=== PATIENT | male | born 1940 | race Caucasian/White ===

== ENCOUNTER → 2019-09-02 12:15 | Outpatient (CLI) | payer OTHER, SELFPAY ==
--- NOTE | 2019-09-02 | DI.RAD.S_ITS ---
PROCEDURE: XR ANKLE RT MIN 3V INDICATIONS: right ankle pain TECHNIQUE: 3 views of the ankle were acquired. COMPARISON: None. FINDINGS: Bones: No fractures or dislocations. Ankle mortise is normally aligned. No suspicious bony lesions. Small plantar and posterior calcaneal spurs. Tibiotalar degenerative spurring. Soft tissues: No tibiotalar joint effusion. Achilles tendon appears normal. IMPRESSION: Chronic degenerative changes as above Dictated by: Fran Chapman M.D. on 09/02/2019 at 14:45 Approved by: Fran Chapman M.D. on 09/02/2019 at 14:47
== END ==
PROVIDERS: Visit Provider Student in an Organized Health Care Education/Training Program
DX: M25.571 Pain in right ankle and joints of right foot (principal)
CPT/HCPCS: 73610

== ENCOUNTER → 2019-10-13 11:21 | Outpatient (CLI) | payer OTHER, SELFPAY ==
--- NOTE | 2019-10-13 | DI.RAD.S_ITS ---
PROCEDURE: XR LUMBAR SPINE 2-3V INDICATIONS: Segmental and somatic dysfunction of lumbar region TECHNIQUE: 2 views of the lumbar spine were acquired. COMPARISON: None. FINDINGS: Bones: No fracture or focal osseous destruction. Multilevel degenerative endplate sclerosis and spurring. Diffuse facet arthropathy. Straightening of the normal lordotic curvature. Severe narrowing of L3-L4, L4-L5 disc spaces. Moderate L5-S1 disc space narrowing. Mild levocurvature centered at L4. Sacroiliac joints appear grossly intact. Mild bilateral hip joint degeneration. Soft tissues: Scattered vascular calcifications seen in the aorta. IMPRESSION: Severe lumbar spondylosis most pronounced at L3-L4, L4-L5. Diffuse facet arthropathy Straightening of the normal lordotic curvature. Mild levocurvature centered at L4. Dictated by: Fran Chapman M.D. on 10/13/2019 at 12:41 Approved by: Fran Chapman M.D. on 10/13/2019 at 12:43
== END ==
PROVIDERS: Referring Provider Chiropractor; Visit Provider Chiropractor
DX: M54.5 Low back pain (principal); M99.03 Segmental and somatic dysfunction of lumbar region; M47.816 Spondylosis without myelopathy or radiculopathy, lumbar region; M16.0 Bilateral primary osteoarthritis of hip
CPT/HCPCS: 72100

== ENCOUNTER → 2020-02-20 15:46 | Outpatient (CLI) | payer OTHER, SELFPAY ==
[2020-02-21 09:53] LABS: COVID19 Sendout Not Detected (Not Detect)
== END ==
PROVIDERS: Visit Provider Student in an Organized Health Care Education/Training Program
DX: Z01.812 Encounter for preprocedural laboratory examination (principal)
CPT/HCPCS: 87635

== ENCOUNTER 2020-02-23 13:18 | Day surgery (SDC) | payer OTHER, SELFPAY ==
[2020-02-23] VITALS (10 sets, daily range): BP systolic 92–175; BP diastolic 59–83; PULSE 57–73; RESP 13–18; TEMP 36.1–36.7; O2SAT 89–98; BMI 34.0
--- NOTE | 2020-02-23 | PATH_ITS ---
[facility] Accession Number: [id number] . 01 Material submitted: . PART A: colon - TRANSVERSE COLON POLYP BIOPSY PART B: colon - CECAL POLYP PART C: colon - COLON POLYP AT 50CM . 02 Diagnosis: A. Transverse Colon Polyp, Biopsy: Portions of tubular adenoma x2. . B. Cecal Polyp: Portions of tubular adenoma x3. . C. Colon Polyp at 50 cm, Biopsy: Tubular adenoma. MRV 02/24/2020 1047 Local . 02 Electronically signed: . Adriana Cee MD, Pathologist NPI- [id number] . 01 Gross description: . Part A: TRANSVERSE COLON POLYP BIOPSY: Received in formalin are 2 fragment(s) of norris, soft tissue measuring 0.2 x 0.2 x 0.2 cm to 0.4 x 0.4 x 0.3 cm submitted entirely in 1 cassette(s) Part B: CECAL POLYP: Received in formalin are 3 fragment(s) of norris, soft tissue measuring 0.1 x 0.1 x 0.1 cm to 0.2 x 0.2 x 0.2 cm submitted entirely in 1 cassette(s) Part C: COLON POLYP AT 50CM: Received in formalin is 1 fragment(s) of norris, soft tissue measuring 0.3 x 0.3 x 0.3 cm submitted entirely in 1 cassette(s) /LAUREN 02/24/2020 0030 Local . 02 Pathologist provided ICD-10: K63.5 . 02 CPT . 290487, 259750, [id number] Performed at: [address] [facility], [place], [place] [id number] MD Freddie Vela MD Phone: [phone] Performed at: 02 [facility] [address] [place] [id number] MD Marilia Gonzalez MD Phone: [phone]
[2020-02-23] MEDS: LACTATED RINGERS 1,000 ML 200 ML IV (14:35)
--- NOTE | 2020-02-23 15:18 | PM.HP.1 ---
History of Present Illness History of Present Illness Date Patient Seen: 02/23/20 Time Patient Seen: 15:18 Chief complaint: COLONOSCOPY Narrative: The patient presents for colorectal sreening. They had a previous colonoscopy 10 years ago that was normal No personal or family history of colon cancer. On further history denies any recent gastrointestinal symptoms. No nausea, vomiting, abdominal pain, loss of appetite, unexplained weight loss, change in bowel habits, diarrhea, constipation, melena, hematochezia, or bright red blood per rectum. Patient History Medical History Arthritis (Acute) Cancer (Acute) Cough (Acute) Diabetes (Acute) Enlarged prostate (Acute) Hand pain (Acute) History of falling (Acute) History of melanoma (Acute) Hypertension (Acute) Impairment of balance (Acute) Urinary frequency (Acute) Surgical History History of appendectomy (Acute) History of tonsillectomy (Acute) Family & Social History Social History: household members family Tobacco & Substance use: Tobacco type cigarettes,pipe Smoking Status Former smoker alcohol intake current alcohol intake frequency 0-2 drinks per day Substance Use Type does not use Meds Home Medications and Allergies Home Medications Medication Instructions Recorded Confirmed Type acetaminophen [Tylenol Extra 1,000 mg PO BID 02/23/20 02/23/20 History Strength] calcium carbonate [Calcium 600] 600 mg PO DAILY 02/23/20 02/23/20 History cholecalciferol (vitamin D3) 50 mcg PO DAILY 02/23/20 02/23/20 History [Vitamin D3] coQ10 (ubiquinol) 100 mg PO DAILY 02/23/20 02/23/20 History diphenhydramine HCl 50 mg PO BEDTIME 02/23/20 02/23/20 History finasteride 5 mg PO QPM 02/23/20 02/23/20 History fluticasone propionate [Flovent 2 puff INHALATION BID 02/23/20 02/23/20 History HFA] lisinopril 20 mg PO QPM 02/23/20 02/23/20 History metformin 500 mg PO BID 02/23/20 02/23/20 History multivitamin 1 tab PO DAILY 02/23/20 02/23/20 History naproxen sodium [Aleve] 220 mg PO DAILY 02/23/20 02/23/20 History saw palmetto 330 mg PO DAILY 02/23/20 02/23/20 History simvastatin 40 mg PO BEDTIME 02/23/20 02/23/20 History sulfamethoxazole-trimethoprim 1 tab PO DAILY 02/23/20 02/23/20 History terazosin 10 mg PO DAILY 02/23/20 02/23/20 History vitamin B complex 1 tab PO DAILY 02/23/20 02/23/20 History Allergies Allergy/AdvReac Type Severity Reaction Status Date / Time No Known Drug Allergies Allergy Verified 02/23/20 14:24 Review of Systems Review of Systems Narrative: A 10 point review of systems is negative except as noted in the HPI Exam Vital Signs (past 8 hours): - 02/23/20 14:28 Temperature 97.0 F L Pulse Rate 72 Respiratory Rate 16 Blood Pressure 175/83 H Pulse Oximetry 95 Oxygen Delivery Method Room Air Narrative Exam Narrative: General-no acute distress, well nourished HEENT-moist mucous membranes, no scleral icterus Neck-supple, no lymphadenopathy Chest- non labored respirations, clear to auscultation bilaterally Cardiac-regular rate no peripheral edema Abdomen-soft, nontender, non distended Extremities-warm, well perfused Neurological-alert and oriented, no focal deficits Assessment & Plan Assessment & Plan narrative: The patient requires colorectal screening and colonoscopy is recommended. Technical details were discussed. Risks, benefits, alternatives explained. Risks including but not limited to myocardial infarction, aspiration, bleeding, pain, missed lesion, incomplete examination, need for further radiographic studies, colonic perforation, and need for major abdominal surgery were discussed. All questions were answered to their satisfaction, and they are in agreement with this plan. COVID-19 COVID-19 status: Negative
[2020-02-23] MEDS: MIDAZOLAM 5 MG/5 ML VIAL IV (15:23)
[2020-02-23] MEDS: fentaNYL 250 MCG/5 ML INJ IV (15:24)
--- NOTE | 2020-02-23 15:48 | PM.OP.ENDO ---
Operative Date/Time/Diagnoses Date of procedure: 02/23/20 Time of procedure: 15:48 Post-op diagnosis: same Procedure & Clinicians Study performed: Colonoscopy Same procedure as scheduled: Yes Indications: 80-year-old male last colonoscopy 10 years ago presents for routine screening. Surgeon: Bradley Kelly Procedure Notes SCOAP/Timeout: Performed Procedure in detail: Patient placed in left lateral decubitus position. Time out was performed. Procedural sedation was administered with Versed and Fentanyl. A rectal exam demonstrated no external hemorrhoids no internal masses. Colonoscopy scope was placed into the rectum and advanced through the colon to the cecum. The ileocecal valve was identified. The scope was then slowly withdrawn examining colon thoroughly in all directions. The colonoscopy was notable for the following 1. Aguilar diverticulosis 2. Three adenomatous appearing polyps were removed. 1. Cecum less than 1 cm removed with cold snare. 2. Transverse colon less than 1 cm removed with biopsy forceps. 3. 50 cm from anal verge less than 1 cm removed with biopsy forceps. 3. Grade 1 internal hemorrhoids 4. Quality of prep fair Scope withdrawal time: 6 Sedation minutes: 25 Findings: diverticulosis and polyp Specimen(s): other (Three polyps cecum, transverse colon, 50 cm from anal verge) Complications: none Impression: Adenomatous polyps Post-procedure Recommendations: Colonscopy in 3 years Disposition: same day surgery
--- NOTE | 2020-02-23 16:13 | SUR.PHASEI ---
1611 assumed care from ARGENIS Damian
--- NOTE | 2020-02-23 16:28 | SUR.PHASEI ---
report off to ARGENIS Damian
== END 2020-02-23 17:00 | disposition home or self-care (01) ==
PROVIDERS: PCP Student in an Organized Health Care Education/Training Program; Referring Provider Surgery; Visit Provider Surgery
PROC: 0DJD8ZZ Inspection of Lower Intestinal Tract, Via Natural or Artificial Opening Endoscopic (ICD-10-PCS; CPT 45378; principal; 2020-02-23 14:30)
DX: Z12.11 Encounter for screening for malignant neoplasm of colon (principal); K57.30 Diverticulosis of large intestine without perforation or abscess without bleeding; D12.3 Benign neoplasm of transverse colon; D12.0 Benign neoplasm of cecum; D12.6 Benign neoplasm of colon, unspecified
CPT/HCPCS: 45385; 45380; 99152; 99153; J2250; J3010

== ENCOUNTER → 2020-05-18 08:54 | Outpatient (CLI) | payer OTHER, SELFPAY ==
--- NOTE | 2020-05-18 | DI.MRI.S_ITS ---
PROCEDURE: MR LUMBAR SPINE WO CON INDICATIONS: Lumbago with sciatica, unspecified side TECHNIQUE: Noncontrast sagittal T1 spin echo and T2 fast echo, sagittal STIR, axial T1 and T2 fast spin echo through the lumbar spine. In cases with scoliosis, additional coronal T2 fast spin echo may be performed. COMPARISON: [facility], CR, XR LUMBAR SPINE 2-3V, 10/13/2019, 11:23. FINDINGS: Image quality: Excellent. Alignment and Curvature: There is trace retrolisthesis of L2 on L3, L3 on L4, L4 on L5, grade 1 retrolisthesis of L5 on S1. Prominent anterior bridging osteophytes are present at L2-3, L3-4. Bone Marrow: Marrow is of normal overall signal. Moderate reactive endplate changes are present at L3-4, L4-5. No acute vertebral body compression fractures. Spinal Cord: Conus medullaris terminates at the L1-L2 level. Visualized cord demonstrates normal signal and size. Paraspinous Soft Tissues: No paravertebral masses. Discs: Moderate to severe desiccation is present throughout the lumbar spine most severe from L3-4 through L5-S1. L1-L2: No disc bulge, spinal stenosis or foraminal narrowing. L2-L3: Mild disc bulge with minimal canal narrowing. Minimal left foraminal narrowing. L3-L4: Mild disc bulge with moderate spinal stenosis. Moderate to severe bilateral foraminal narrowing with facet and ligamentum flavum hypertrophy. Epidural lipomatosis is present. L4-L5: Mild disc bulge with moderate spinal stenosis. Severe right and minimal to mild left foraminal narrowing with facet and ligamentum flavum hypertrophy. L5-S1: Mild disc bulge with mild spinal stenosis. Severe left and moderate right foraminal narrowing with slight nerve root flattening on the left. Facet and ligamentum flavum hypertrophy are present. IMPRESSION: 1. Multilevel spinal stenosis secondary to disc bulge with contributing effect of facet/ligamentum flavum arthropathy as well as epidural lipomatosis. 2. Multilevel foraminal narrowing severe at L4-5 and L5-S1 secondary facet/ligamentum arthropathy as well as retrolisthesis. Dictated by: Corie Ferguson M.D. on 05/18/2020 at 13:48 Approved by: Corie Ferguson M.D. on 05/18/2020 at 13:57
== END ==
PROVIDERS: PCP Student in an Organized Health Care Education/Training Program; Referring Provider Student in an Organized Health Care Education/Training Program; Visit Provider Student in an Organized Health Care Education/Training Program
DX: M51.16 Intervertebral disc disorders with radiculopathy, lumbar region (principal); M51.17 Intervertebral disc disorders with radiculopathy, lumbosacral region; M47.26 Other spondylosis with radiculopathy, lumbar region; M47.27 Other spondylosis with radiculopathy, lumbosacral region; M48.061 Spinal stenosis, lumbar region without neurogenic claudication; M48.07 Spinal stenosis, lumbosacral region
CPT/HCPCS: 72148

== ENCOUNTER → 2021-02-21 15:37 | Outpatient (CLI) | payer OTHER, SELFPAY ==
--- NOTE | 2021-02-21 15:43 | DI.RAD.S_ITS ---
PROCEDURE: XR CHEST 2V INDICATIONS: COUGH TECHNIQUE: 2 views of the chest were acquired. COMPARISON: None. FINDINGS: Surgical changes and devices: None. Lungs and pleura: There is elevation of the right hemidiaphragm. Lungs are clear. No pleural effusions or pneumothorax. Mediastinum: Mediastinal contours are normal. Heart size is normal. Bones and chest wall: No suspicious bony abnormalities. Soft tissues appear unremarkable. IMPRESSION: 1. No acute cardiopulmonary disease. 2. Elevation of right hemidiaphragm uncertain chronicity. Dictated by: Susi Lanier M.D. on 02/21/2021 at 17:12 Approved by: Susi Lanier M.D. on 02/21/2021 at 17:12
== END ==
PROVIDERS: PCP Student in an Organized Health Care Education/Training Program; Referring Provider Student in an Organized Health Care Education/Training Program; Visit Provider Student in an Organized Health Care Education/Training Program
DX: R05 Cough (principal); R06.2 Wheezing; R35.1 Nocturia
CPT/HCPCS: 71046

== ENCOUNTER 2021-06-25 07:53 | Day surgery (SDC) | payer OTHER, SELFPAY ==
[2021-06-25] MEDS: HYALURONATE SODIUM 30 MG-10 MG/ML SYRINGES 1 BOX INTRAOCULA (07:57)
[2021-06-25] MEDS: PHENYLEPHRINE/LIDOCAINE VIAL (OR) 0.2 ML EYE-OP (07:57)
[2021-06-25] MEDS: MOXIFLOXACIN INJ 4 MG/0.8 ML VIAL 0.5 MG EYE-OP (07:57)
[2021-06-25] MEDS: TRIAMCINOLONE 50 MG/5 ML VIAL INJ (07:57)
[2021-06-25] MEDS: LIDOCAINE 2% (GLYDO) 6 ML GEL TOP (07:58)
[2021-06-25] MEDS: TETRACAINE 0.5% OPHTH DROPS 4 ML 2 DROPS EYE-OP (07:58)
[2021-06-25] MEDS: BALANCED SALT IRRIG SOLN NO.2 500 ML, EPINEPHrine 1 MG IRR (07:58)
[2021-06-25 08:04] LABS: COVID19 -Nasal RAPID Negative (Negative)
--- NOTE | 2021-06-25 08:12 | PM.PREOP ---
Pre-operative Note Interval Note History & Physical reviewed/Exam performed by Physician: Yes Changes to H&P: No
--- NOTE | 2021-06-25 08:12 | PM.OP.1 ---
Operative Date/Time/Diagnoses Pre-op diagnosis: Nuclear cataract right eye Procedure & Clinicians Procedure: Cataract Surgery Same procedure as scheduled: Yes Surgeon: Colin Holt Anesthesia Type: MAC +/- and Sedation Operative Notes Procedure in detail: Patient brought to the operating suite. Tetracaine drops placed in the right eye. Marking instrument was used to nadiya the vertical and horizontal meridians. Patient was prepped and draped in sterile manner. Wire lid speculum was placed in the eye. Betadine drops were placed on the eye. This was irrigated. Lidocaine jelly was placed on the eye. A paracentesis port was created with a side-port blade. 0.1 mL 1% preservative free lidocaine was injected into the anterior chamber. The anterior chamber was deepened with viscoelastic. The pupil was floppy and miotic. A 6.25mm Malyugin ring was used to enlarge the pupil. 2.6 mm keratome was used to create a temporal clear corneal incision. Cystotome and Utrata forceps were used to create continuous tear capsulorrhexis. Balanced salt solution was used to hydro dissect the nucleus. The phacoemulsification handpiece was inserted and the nucleus was removed using the stop and chop technique. The irrigation aspiration handpiece was inserted and the remaining cortex was removed. Anterior chamber was deepened with viscoelastic. An Oliveros [id number] intraocular lens with a power of 23.0 was injected into the capsular bag. The lens was rotated to the 180 degree meridian. The malyugin ring was removed. Irrigation aspiration handpiece was inserted and the remaining viscoelastic was removed. Incision was hydrated with balanced salt solution and found to be leak free with pressure with Weck-Cleo sponges. 0.1 mL Vigamox injected anterior chamber. 0.3 mL Kenalog 10 mg was injected subconjunctivally. Lid speculum was removed. The patient left the operating room in excellent condition. Complications: none Post-operative Condition: stable Disposition: same day surgery
[2021-06-25 08:40] VITALS: BP 158/80; PULSE 68; RESP 16; TEMP 36.2; O2SAT 95
[2021-06-25 08:45] VITALS: BP 148/68; PULSE 68; RESP 18; TEMP 36.3; O2SAT 94
== END 2021-06-25 08:45 | disposition home or self-care (01) ==
PROVIDERS: PCP Student in an Organized Health Care Education/Training Program; Referring Provider Ophthalmology; Visit Provider Ophthalmology
PROC: (CPT 66984; principal; 2021-06-25 07:45)
DX: H25.11 Age-related nuclear cataract, right eye (principal); E11.9 Type 2 diabetes mellitus without complications; Z79.84 Long term (current) use of oral hypoglycemic drugs; I10 Essential (primary) hypertension; J45.909 Unspecified asthma, uncomplicated; E78.5 Hyperlipidemia, unspecified
CPT/HCPCS: 66984; 87635; J0171; J2250; J3010; J3301; V2787

== ENCOUNTER → 2021-07-08 14:54 | Outpatient (CLI) | payer OTHER, SELFPAY ==
[2021-07-08 16:13] LABS: COVID19 -Nasal RAPID Negative (Negative)
== END ==
PROVIDERS: PCP Student in an Organized Health Care Education/Training Program; Referring Provider Physician Assistant; Visit Provider Physician Assistant
DX: Z20.822 Contact with and (suspected) exposure to COVID-19 (principal)
CPT/HCPCS: 87635; C9803

== ENCOUNTER 2021-07-09 06:47 | Day surgery (SDC) | payer OTHER, SELFPAY ==
[2021-07-09] MEDS: PROPARACAINE 0.5% OPHTH SOL 2 DROPS EYE-OP (07:09)
[2021-07-09] MEDS: CATARACT EYE COMPOUND (10 DROPS/SYRINGE) 3 DROPS EYE-OP (07:10)
[2021-07-09 07:12] VITALS: BP 160/72; PULSE 64; RESP 14; TEMP 36.1; O2SAT 92
[2021-07-09 07:14] VITALS: BMI 32.6
--- NOTE | 2021-07-09 08:35 | P.OP_ITS ---
Operative Date/Time/Diagnoses Pre-op diagnosis: Nuclear Cataract Left eye Post-op diagnosis: same Procedure & Clinicians Same procedure as scheduled: Yes Surgeon: Colin Holt Anesthesia Type: MAC +/- and Sedation Operative Notes Procedure in detail: Patient brought to the operating suite. Tetracaine drops placed in the left eye. Marking instrument was used to nadiya the vertical and horizontal meridians. Patient was prepped and draped in sterile manner. Wire lid speculum was placed in the eye. Marking instrument was used to nadiya the 165 degree meridian. Be tadine drops were placed on the eye. This was irrigated. Lidocaine jelly was placed on the eye. A paracentesis port was created with a side-port blade. 0.1 mL 1% preservative free lidocaine was injected into the anterior chamber. The anterior chamber was deepened with viscoelastic. 2.6 mm keratome was used to create a temporal clear corneal incision. The pupil was floppy and miotic a 6.25 mm Malyugin ring was used to enlarge the pupil. Cystotome and Utrata forceps were used to create continuous tear capsulorrhexis. Balanced salt solution was used to hydro dissect the nucleus. The phacoemulsification handpiece was inserted and the nucleus was removed using the stop and chop technique. The irrigation aspiration handpiece was inserted and the remaining cortex was removed. Anterior chamber was deepened with viscoelastic. An Oliveros [id number] intraocular lens with a power of 22.0 was injected into the capsular bag. Irrigation aspiration handpiece was inserted and the remaining viscoelastic was removed. The lens was rotated to the 165 degree meridian. The Malyugin ring was removed. Incision was hydrated with balanced salt solution and found to be leak free with pressure with Weck-Cleo sponges. 0.1 mL Vigamox injected anterior chamber. 0.3 mL Kenalog 10 mg was injected subconjunctivally. Lid speculum was removed. The patient left the operating room in excellent condition. Complications: none Post-operative Condition: stable Disposition: same day surgery
--- NOTE | 2021-07-09 08:35 | PM.PREOP ---
Pre-operative Note Interval Note History & Physical reviewed/Exam performed by Physician: Yes Changes to H&P: No
[2021-07-09] MEDS: MOXIFLOXACIN INJ 4 MG/0.8 ML VIAL 0.5 MG EYE-OP (08:55)
[2021-07-09] MEDS: HYALURONATE SODIUM 30 MG-10 MG/ML SYRINGES 1 BOX INTRAOCULA (08:55)
[2021-07-09] MEDS: PHENYLEPHRINE/LIDOCAINE VIAL (OR) 0.2 ML EYE-OP (08:56)
[2021-07-09] MEDS: TRIAMCINOLONE 50 MG/5 ML VIAL INJ (08:56)
[2021-07-09] MEDS: BALANCED SALT IRRIG SOLN NO.2 500 ML, EPINEPHrine 1 MG IRR (08:56)
[2021-07-09] MEDS: TETRACAINE 0.5% OPHTH DROPS 4 ML 2 DROPS EYE-OP (08:56)
[2021-07-09] MEDS: LIDOCAINE 2% (GLYDO) 6 ML GEL TOP (08:57)
[2021-07-09 09:13] VITALS: BP 151/66; PULSE 63; RESP 14; TEMP 36.3; O2SAT 94
--- NOTE | 2021-07-09 09:22 | SUR.PHASEII ---
pacu note met discharge criteria-wide awake and alert,vss. no pain,no nausea. tolerated po fluids. eye patch secure left eye and roll of tape sent with pt. luanne called. has all possessions. reinforced home instructions reviewed prior to surgery. eye card with patient on discharge. [id number] out. dressed self. Discharged by wheelchair with all personal belonging/paperwork/eye card.
== END 2021-07-09 09:25 | disposition home or self-care (01) ==
PROVIDERS: PCP Student in an Organized Health Care Education/Training Program; Referring Provider Ophthalmology; Visit Provider Ophthalmology
PROC: (CPT 66984; principal; 2021-07-09 08:45)
DX: H25.12 Age-related nuclear cataract, left eye (principal); E11.9 Type 2 diabetes mellitus without complications; Z79.84 Long term (current) use of oral hypoglycemic drugs
CPT/HCPCS: 66984; 82962; J0171; J2250; J3301; V2787

== ENCOUNTER 2021-09-03 09:45 | Observation (INO) | payer OTHER, SELFPAY ==
[2021-09-03] VITALS (12 sets, daily range): BP systolic 123–187; BP diastolic 57–78; PULSE 65–92; RESP 14–18; TEMP 36.6–37; O2SAT 90–96; BMI 31.5; BMI 33.8
--- NOTE | 2021-09-03 09:49 | DI.RAD.S_ITS ---
PROCEDURE: XR ANKLE LT MIN 3V INDICATIONS: fall with ankle and foot pain TECHNIQUE: 3 views of the ankle were acquired. COMPARISON: [facility], CR, XR ANKLE RT MIN 3V, 09/02/2019, 12:16. FINDINGS: Bones: No fractures or dislocations. Ankle mortise is normally aligned. No suspicious bony lesions. Soft tissues: Mild ankle soft tissue swelling is seen particularly over lateral malleolus. No tibiotalar joint effusion. Achilles tendon appears normal. IMPRESSION: No gross acute ankle fracture or dislocation. Ankle mortise is intact. Mild lateral ankle soft tissue swelling. Dictated by: Vince Varma M.D. on 09/03/2021 at 10:33 Approved by: Vince Varma M.D. on 09/03/2021 at 10:34
--- NOTE | 2021-09-03 09:49 | DI.RAD.S_ITS ---
PROCEDURE: XR FOOT LT MIN 3V INDICATIONS: fall with ankle and foot pain TECHNIQUE: 3 views of the foot were acquired. COMPARISON: None. FINDINGS: Bones: No fractures or dislocations. No suspicious bony lesions. Soft tissues: No tibiotalar joint effusion. Achilles tendon appears normal. IMPRESSION: No gross acute left foot fracture or dislocation. Dictated by: Vince Varma M.D. on 09/03/2021 at 10:33 Approved by: Vince Varma M.D. on 09/03/2021 at 10:33
--- NOTE | 2021-09-03 10:00 | ED_ITS ---
HPI - Extremity Injury (Lower) General Chief Complaint: Extremity Injury, Lower Stated Complaint: Ankle Pain Time Seen by Provider: 09/03/21 09:54 Source: patient Mode of arrival: EMS History of Present Illness HPI Narrative: The patient is a 81-year-old male with history of diabetes with neuropathy presenting with left ankle and foot pain. He says he was walking out of a restaurant 2 days ago when he tripped and fell. He has been unable to ambulate ever since. He has been sitting in a chair, urinating in a flower vase. He had extra hydrocodone at which she has been taking for pain. He denies any dizziness lightheadedness, chest pain palpitations or shortness of breath. Related Data Home Medications Medication Instructions Recorded Confirmed calcium carbonate 600 mg calcium 600 mg PO DAILY 02/23/20 09/03/21 (1,500 mg) tablet (Calcium) cholecalciferol (vitamin D3) 50 50 mcg PO DAILY 02/23/20 09/03/21 mcg (2,000 unit) capsule (Vitamin D3) lisinopril 20 mg tablet 20 mg PO QPM 02/23/20 09/03/21 metformin 500 mg tablet 500 mg PO BID 02/23/20 09/03/21 multivitamin 1 tab PO DAILY 02/23/20 09/03/21 saw palmetto 160 mg capsule 330 mg PO DAILY 02/23/20 09/03/21 simvastatin 40 mg tablet 40 mg PO BEDTIME 02/23/20 09/03/21 terazosin 10 mg capsule 10 mg PO QPM 02/23/20 09/03/21 vitamin B complex 1 tab PO DAILY 02/23/20 09/03/21 albuterol sulfate 90 mcg/actuation 2 puff INHALATION Q4-6H PRN 07/09/20 09/03/21 aerosol inhaler (Ventolin HFA) Previous Rx's Medication Instructions Recorded celecoxib 200 mg capsule (Celebrex) 200 mg PO DAILY #30 cap 07/09/20 Allergies Allergy/AdvReac Type Severity Reaction Status Date / Time No Known Drug Allergies Allergy Verified 09/03/21 09:50 Review of Systems Review of Systems Narrative: GENERAL: Denies chills, fatigue, malaise, fever, sweats, travel HEENT: Denies sinus pain, ear pain, sore throat, difficulty swallowing, neck pain RESPIRATORY: Denies dyspnea, cough, wheezing, hemoptysis, sputum. CARDIOVASCULAR: Denies chest pain, palpitations, orthopnea, edema GASTROINTESTINAL: Denies nausea, vomiting, abdominal pain, diarrhea, constipation, melena. : Denies dysuria, frequency, incontinence, hematuria, urinary retention, flank pain. MUSCULOSKELETAL: See HPI SKIN: No rash, no erythema, no pruritus NEUROLOGIC: Denies weakness, dizziness, headache, numbness, change in speech, confusion PSYCHIATRIC: No concerning psychosocial issues. 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 Urinary frequency Surgical History History of appendectomy History of tonsillectomy Family History Father Heart disease Social History household members: family Smoking Status: Former smoker alcohol intake: current Smoking Status: Former smoker alcohol intake frequency: 0-2 drinks per day Substance Use Type: does not use Exam Initial Vital Signs Initial Vital Signs: Vital Signs Temperature 97.8 F 09/03/21 09:50 Pulse Rate 80 09/03/21 09:50 Respiratory Rate 15 09/03/21 09:50 Blood Pressure 155/71 H 09/03/21 09:50 Pulse Oximetry 94 09/03/21 09:50 GENERAL: Alert pleasant 81-year-old maleand in no acute distress. HEENT: Head atraumatic,EOMI, pupils reactive, face symmetric, moist] mucous membranes CARDIOVASCULAR: Regular rate and rhythm without murmurs, rubs or gallops. RESPIRATORY: Breath sounds equal bilaterally, no wheezes rales or rhonchi. ABDOMEN: Soft, nontender. Normoactive bowel sounds all 4 quadrants. No guarding or rebound. EXTREMITIES: Normal range of motion, no clubbing or edema. Neurovascularly intact. Left ankle and foot significantly swollen very tender on dorsal foot pedal pulses present NEUROLOGICAL: Alert and oriented x4.N SKIN: Warm, dry, no laceration, no petechiae, no rashes or lesions. Procedures Orthopedic Splinting/Casting Injury #1: Lower Extremity Injury Location: foot Lower Extremity Immobilizer: posterior splint Post splinting neuro exam: intact Post splinting vascular exam: intact Placed by: Provider Course Orders Ordered: ED Orders 09/03/21 11:29 Consult to Physical Therapy Evaluate & Treat 09/03/21 12:32 CBC Auto Diff [Complete Blood Count AUTO DIFF] Stat CMP [Comprehensive Metabolic Panel] Stat 09/03/21 13:56 CT LE LT wo con Stat Acetaminophen (Acetaminophen 325 Mg Tablet) 650 mg PO Q6HR PRN PRN Reason: Fever/Mild Pain (1-3) Albuterol (Albuterol 2.5 Mg/3 Ml Neb (Adult)) 2.5 mg INH Q4H PRN PRN Reason: Adequate Ventilation Atorvastatin Calcium (Atorvastatin 20 Mg Tablet) 20 mg PO BEDTIME [facility] Celecoxib (Celecoxib 200 Mg Capsule) 200 mg PO DAILY [facility] Dextrose (Dextrose 50 % In Water 25 Gm/50 Ml Syringe) 25 gm IV PRN PRN PRN Reason: Hypoglycemia Docusate Sodium (Docusate 100 Mg Capsule) 100 mg PO BID [facility] Enoxaparin Sodium (Enoxaparin 40 Mg/0.4 Ml Syringe) 40 mg SUBCUT DAILY [facility] Insulin Human Lispro (Insulin Lispro 100 Unit/Ml 3ml Vial) 0 unit SUBCUT ACHS J[facility]ON; Protocol Lisinopril (Lisinopril 20 Mg Tablet) 20 mg PO QPM [facility] Last Admin: 09/03/21 17:33 Dose: 20 mg Documented by: PATRICA Ondansetron HCl (Ondansetron 4 Mg/2 Ml Inj) 4 mg IV Q8HR PRN PRN Reason: Nausea And Vomiting Oxycodone HCl (Oxycodone Ir 5 Mg Tablet) 5 mg PO Q6HR PRN PRN Reason: Pain, Moderate (4-6) Last Admin: 09/03/21 17:33 Dose: 5 mg Documented by: PATRICA Oxycodone HCl (Oxycodone Ir 10 Mg Tablet) 10 mg PO Q6HR PRN PRN Reason: Pain, Severe (7-10) Sodium Chloride (Sodium Chloride 0.9% Flush) 10 ml IV PRN PRN PRN Reason: Flush Sodium Chloride (Sodium Chloride 0.9% Flush) 10 ml IV BID [facility] Terazosin HCl (Terazosin 5 Mg Capsule) 10 mg PO QPM [facility] Discontinued Medications Finasteride (Finasteride 5 Mg Tablet) 5 mg PO QPM [facility] Last Admin: 09/03/21 17:31 Dose: Not Given Documented by: TBLANTO Ketorolac Tromethamine (Ketorolac 30 Mg/Ml Vial) 15 mg IV NOW ONE Stop: 09/03/21 12:21 Last Admin: 09/03/21 12:26 Dose: 15 mg Documented by: KONSTANTINOTEM Metformin HCl (Metformin Hcl 500 Mg Tablet) 500 mg PO BID [facility] Vital Signs Vital signs: Vital Signs - 8 hr 09/03/21 11:30 09/03/21 12:30 09/03/21 13:00 Pulse Rate 82 87 78 Blood Pressure 187/78 H 163/70 H 155/67 H Pulse Oximetry 96 93 91 MDM - Extremity Injury (Lower) Lab Data Result diagrams: 09/03/21 12:32 09/03/21 12:32 Labs: Lab Results 09/03/21 09/03/21 Range/Units 12:32 12:32 WBC 6.7 (4.5-11.0) X10^3/uL RBC 4.33 L (4.5-5.9) X10^6/uL Hgb 13.4 L (13.5-17.5) g/dL Hct 39.3 L (41-53) % MCV 90.7 (80-100) fL MCH 30.8 (26-34) PG MCHC 34.0 (30-36) % RDW 14.4 (11.6-14.8) % Plt Count 172 (150-400) X10^3/uL Neut % (Auto) 73.1 (50-75) % Lymph % (Auto) 16.1 L (25-40) % [place] % (Auto) 8.5 (3-14) % Eos % (Auto) 1.5 L (2-4) % Baso % (Auto) 0.8 (0-2) % Neut # (Auto) 4900 (3038-6967) /uL Lymph # (Auto) 1100 (9391-7390) /uL [place] # (Auto) 600 (0-900) /uL Eos # (Auto) 100 (0-450) /uL Baso # (Auto) 100 (0-100) /uL Sodium 136 L (137-145) mmol/L Potassium 4.3 (3.4-5.1) mmol/L Chloride 101 (98-107) mmol/L Carbon Dioxide 30 (22-32) mmol/L BUN 14 (9-20) mg/dL Creatinine 0.81 (0.66-1.25) mg/dL Estimated GFR > 60.0 (>60) mL/min BUN/Creatinine Ratio 17.3 (6-22) Glucose 131 H (80-110) mg/dL Calcium 8.9 (8.4-10.2) mg/dL Total Bilirubin 0.6 (0.2-1.3) mg/dL AST 28 (17-59) IU/L ALT 16 (<50) IU/L Alkaline Phosphatase 54 (38-126) U/L Total Protein 7.6 (6.3-8.2) g/dL Albumin 4.2 (3.5-5.0) g/dL Globulin 3.4 (1.7-4.1) g/dL Albumin/Globulin Ratio 1.2 (1.0-2.8) Imaging Data Extremity x-ray #1: Radiologist's Impression: PROCEDURE:? XR ANKLE LT MIN 3V ? INDICATIONS:? fall with ankle and foot pain ? TECHNIQUE:? 3 views of the ankle were acquired.? ? COMPARISON:? [facility], CR, XR ANKLE RT MIN 3V, 09/02/2019, 12:16. ? FINDINGS:? ? Bones:? No fractures or dislocations.? Ankle mortise is normally aligned.? No suspicious bony lesions.? ? Soft tissues:? Mild ankle soft tissue swelling is seen particularly over lateral malleolus.? No tibiotalar joint effusion.? Achilles tendon appears normal.? ? ? IMPRESSION:? No gross acute ankle fracture or dislocation.? Ankle mortise is intact.? Mild lateral ankle soft tissue swelling. ? ? Dictated by: Vince Varma M.D. on 09/03/2021 at 10:33? Extremity x-ray #2: Radiologist's Impression: PROCEDURE:? XR FOOT LT MIN 3V ? INDICATIONS:? fall with ankle and foot pain ? TECHNIQUE:? 3 views of the foot were acquired.? ? COMPARISON:? None. ? FINDINGS:? ? Bones:? No fractures or dislocations.? No suspicious bony lesions.? ? Soft tissues:? No tibiotalar joint effusion.? Achilles tendon appears normal.? ? ? IMPRESSION:? No gross acute left foot fracture or dislocation. ? ? Dictated by: Vince Varma M.D. on 09/03/2021 at 10:33 ? ? CT LE: Radiologist's Impression: PROCEDURE:? CT LE LT W CON ? INDICATIONS:? unable to bear weight ? TECHNIQUE:? Noncontrast 1-1.5 mm axial sections acquired from above the tibiotalar joint to the bottom of the calcaneus, with coronal and sagittal reformats.? ? COMPARISON:? [facility], CR, XR ANKLE LT MIN 3V, 09/03/2021, 10:16.? [facility], CR, XR FOOT LT MIN 3V, 09/03/2021, 10:16. ? FINDINGS:? Image quality:? Excellent.? ? Bones:? There is a mildly displaced intra-articular comminuted fracture of the base of the 4th metatarsal extending into the tarsometatarsal joint.? The largest fracture fragment is mildly rotated medially with up to 5 mm step-off at the articular miranda rface.? A tiny minimally displaced fracture is seen at the lateral aspect of the lateral cuneiform, best appreciated on coronal images.? There is also a tiny fracture fragment at the anterolateral cuboid.? A small comminuted intra-articular fracture at the medial base of the 2nd metatarsal is also noted, and injury to the Lisfranc ligament in this location is not excluded.? Possible minimally displaced fracture through an accessory os trigonum.? Degenerative changes are seen at the mortise joint with formation of small marginal osteophytes. ? Soft tissues:? Soft tissue edema is seen in the foot and ankle.? The articular cartilages, ligaments, and tendons are not well evaluated with CT.? Second metatarsal base fracture is noted to be located in the region of the Lisfranc ligament.? No widening of the 1st intermetatarsal space is seen.? The musculature of the foot is normal in bulk. ? IMPRESSION:? 1. Mildly displaced and rotated comminuted intra-articular fracture of the base of the 4th metatarsal. 2. Small minimally displaced fracture of the base of the 2nd metatarsal, in the region of the Lisfranc ligament attachment.? Injury to the Lisfranc ligament is not excluded. 3. Tiny minimally displaced fractures at the lateral aspects of the lateral cuneiform and cuboid bones. 4. Possible minimally displaced fracture through an accessory os trigonum. ? ? ? Dictated by: Alireza Palma M.D. on 09/03/2021 at 14:26 ? ? Approved by: Alireza Palma M.D. on 09/03/2021 at 14:36 ? MDM Narrative Medical decision making narrative: Patient has swelling of the left foot x-rays are negative attempt to ambulate and weightbear unsuccessful. Evaluation by physical therapy his recommendation is admission. CT confirms that he has multiple foot fractures and possible lisfranc ligament injury. Currently patient's pain is controlled. I spoken with the daughter who is unable to care for him if he of his non weight-bearing. Dr. Clements, hospitalist in ED to see and evaluate patient Dr. Romero updated on CT results agrees with posterior splint he will consult. Requests a non weight-bearing Discharge Plan Departure Patient Disposition: Admitted As Inpatient Clinical Impression: Foot fracture, left, Lisfranc's sprain Admit Date/Time: 09/03/21 14:04 Admit Provider: Otilio Clements
--- NOTE | 2021-09-03 11:45 | PT.IIE ---
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 Urinary frequency Physical Therapy Inpatient Evaluation/Re-Eval M1 PT/OT-IP Prior Functional Status Start: 09/03/21 12:22 Freq: Status: Active Protocol: Document 09/03/21 11:45 AB (Rec: 09/03/21 12:49 AB [id number]) Medical Review Prior Functional Status Medical History Reviewed Yes Communication able to make needs known Mobility and Gait pt stated that he is independent with all mobilities and ambulation without AD but occasionally uses a SPC for outdoor mobility when he feels unsteady due to BLE neuropathy Social History Household Members family Living Arrangements House Number of Floors (Floors) One Floor Number of Stairs To Enter/Railing? ramp from to garage to enter Home Environment Standard Height Toilet,Walk in Shower,Built-In Shower Seat, Ramp Home Equipment Four Wheel Walker,Straight Cane,Hand Held Shower,Grab Bars In Shower Additional Social History Comment pt lives with daughter and stated that his daughter can assist him M2 PT-IP Current Condition Start: 09/03/21 12:22 Freq: Status: Active Protocol: Document 09/03/21 11:45 AB (Rec: 09/03/21 12:49 AB [id number]) Physical Therapy Current Condition Current Condition Evaluation Date 09/03/21 Treatment Diagnosis L ankle pain; difficulty in walking Onset Date 09/03/21 M3 PT-IP Subjective Start: 09/03/21 12:22 Freq: Status: Active Protocol: Document 09/03/21 11:45 AB (Rec: 09/03/21 12:49 AB [id number]) Subjective Physical Therapy Visit Type Type Initial Evaluation Visit Start Time 11:45 Visit Stop Time 12:15 Total Visit Minutes 30 Number of CANAL STRUCTURE OPERATOR Visits 0 Physical Therapy Visit Comments Patient Comments agreed to do PT Therapy Pain Assessment Pain When Pain Assessed During Mobility Pain Present Pain Present Pain Reported Location left foot/ankle Scale Used pain scale not stated but c/o increarse pain Pain Behaviors Facial Grimacing,Guarding, Holding Area,Wincing Pain Management Techniques Modification of Treatment,Re- positioning M4 PT-IP Mobility and Gait Start: 09/03/21 12:22 Freq: Status: Active Protocol: Document 09/03/21 11:45 AB (Rec: 09/03/21 12:49 AB [id number]) PT-Bed Mobility Assessment Supine to Sit Supine to Sit Standby Assistance Sit to Supine Sit to Supine Standby Assistance PT-Transfer Assessment Sit to and From Stand Sit to and from Stand Moderate Assistance,1 Person Assistance,Use of Upper Extremities Equipment Transfer Assistive Device Gait Belt,Front Wheeled Walker Comments Mobility Comments pt supine in bed. presents with (+) L ankle swelling with c/o pain with ankle movement. pt stated that he has not been able to walk since thursday due to ankle pain. imaging result (-) fx. pt completed supine to sit SBA but presents with difficulty completing task. pt stated that he has back problems as well. pt completed sit to stand mod A with bed elevated. pt tends not to put weight on LLE and stated that he has increase pain and cannot put his heel down to the floor. attempted to take a step and just took half a step max A and has to sit back down on EOB. completed sit to supine SBA. positioned in bed. pt requesting for pain meds. informed nurse regarding pt mobility and request for pain meds. Gait Assessment Comments Gait Comments unable PT-Balance Assessment Sitting Balance and Reactions Static Sitting Balance Ability Good Dynamic Sitting Balance Ability Good Standing Balance and Reactions Static Standing Balance Ability Poor Dynamic Standing Balance Ability Poor Device Used FWW M5 PT-IP Objective Assessments Start: 09/03/21 12:22 Freq: Status: Active Protocol: Document 09/03/21 11:45 AB (Rec: 09/03/21 12:49 AB [id number]) Orientation Orientation/Cognition Level of Alertness Alert Orientation Name,Place,Situation Language Function Ability No Deficits Noted Safety Awareness Understands Safety Issues Memory Description No Deficits Noted Gross Range of Motion Lower Extremity ROM Impairments L ankle pain limiting ROM assessment Strength Lower Extremity Strength Assessment Left Impaired Hip 3+/5 Knee 3+/5 Comments Strength Comments L ankle pain limiting MMT assessment Sensation Assessment Sensation Gross Sensation Right LE Impaired,Left LE Impaired Light Touch Impaired Proprioception (Position) Impaired Comments Sensation Comments stated that he has BLE neuropathy Muscle Tone Muscle Tone WNL Yes M6 PT-IP Treatment Start: 09/03/21 12:22 Freq: Status: Active Protocol: Document 09/03/21 11:45 AB (Rec: 09/03/21 12:49 AB [id number]) Physical Therapy Treatment Education Education Provided Safety M7 PT-IP Assessment and Plan Start: 09/03/21 12:22 Freq: Status: Active Protocol: Document 09/03/21 11:45 AB (Rec: 09/03/21 12:49 AB [id number]) PT Summary Assessment and Plan Potential Rehabilitation Potential Fair Status of Condition at Evaluation Evolving Summary Impairments Pain,ROM,Strength,Balance, Coordination,Sensation,Tone, Cognition,Bed Mobility, Transfers,Gait,Activity Tolerance Assessment Summary PT eval order received from ER for mobility assessment for safety to d/c home. Pt with c /o increase L ankle pain and presents with (+) swelling and increase pain with movement and pt unable to put weight on LLE. pt unable to ambulate at this time and is not safe to d/c home. informed nurse. Goals Bed Mobility Goal Independent Transfer Goal Standby Assistance,Front Wheeled Walker Gait Goal Standby Assistance,Front Wheel Walker Gait Distance 100 Other Goals improve ambulation using 4WW/ SPC 150 ft SBA Days to Meet Goals 10 Frequency of Treatment Frequency Of Treatment Once a Day Treatment Plan Physical Therapy Treatment Plan Bed Mobility Training,Transfer Training,Gait Training, Therapeutic Exercise,Balance Retraining,Discharge Planning, Hot or Cold Pack,Neuromuscular Re-ed,Coordination Retraining ,Manual Therapy Recommendations To Nursing Amount of Assist Needed 1 Person Assist Discharge Recommendations PT Discharge Recommendations Home with Assistance,Home with 24/7 Assist Available,SNF Rehab,Home vs SNF Equipment Needed for Home Before w/c/ FWW if not safe with 4WW/ Discharge SPC Transportation Needs at Discharge Wheelchair/Cabulance
--- NOTE | 2021-09-03 12:22 | PC.NURSE ---
PT consult done,evaulation was that he is unable to walk and should not go home per physical therapist
[2021-09-03] MEDS: KETOROLAC 30 MG/ML VIAL 15 MG IV (12:26)
[2021-09-03 12:49] LABS: Add Manual Diff / Slide Review NO; Basophils Absolute Auto 100 /uL (0-100); Basophils Percent Auto 0.8 % (0-2); Eosinophils Absolute Auto 100 /uL (0-450); Eosinophils Percent Auto 1.5 % (2-4); Hematocrit 39.3 % (41-53); Hemoglobin 13.4 g/dL (13.5-17.5); Lymphocytes Absolute Auto 1100 /uL (1100-4500); Lymphocytes Percent Auto 16.1 % (25-40); Mean Corpuscular Hemoglobin 30.8 PG (26-34); Mean Corpuscular Volume 90.7 fL (80-100); Monocytes Absolute Auto 600 /uL (0-900); Monocytes Percent Auto 8.5 % (3-14); Neutrophils Absolute Auto 4900 /uL (1500-7000); Neutrophils Percent Auto 73.1 % (50-75); Platelet Count 172 X10^3/uL (150-400); Red Blood Cell Count 4.33 X10^6/uL (4.5-5.9); Red Cell Distribution Width 14.4 % (11.6-14.8); White Blood Cell Count 6.7 X10^3/uL (4.5-11.0)
[2021-09-03 13:02] LABS: Alanine Aminotransferase 16 IU/L (<50); Albumin 4.2 g/dL (3.5-5.0); Albumin Globulin Ratio 1.2 (1.0-2.8); Alkaline Phosphatase 54 U/L (38-126); Aspartate Aminotransferase 28 IU/L (17-59); BUN Creatinine Ratio 17.3 (6-22); Bilirubin Total 0.6 mg/dL (0.2-1.3); Blood Urea Nitrogen 14 mg/dL (9-20); Calcium 8.9 mg/dL (8.4-10.2); Carbon Dioxide 30 mmol/L (22-32); Chloride 101 mmol/L (98-107); Estimated Glomerular Filt Rate > 60.0 mL/min (>60); Globulin 3.4 g/dL (1.7-4.1); Glucose 131 mg/dL (80-110); HEMOLYSIS < 15 (0-50); Potassium 4.3 mmol/L (3.4-5.1); Sodium 136 mmol/L (137-145); Total Protein 7.6 g/dL (6.3-8.2)
--- NOTE | 2021-09-03 13:56 | DI.CT.S_ITS ---
PROCEDURE: CT LE LT W CON INDICATIONS: unable to bear weight TECHNIQUE: Noncontrast 1-1.5 mm axial sections acquired from above the tibiotalar joint to the bottom of the calcaneus, with coronal and sagittal reformats. COMPARISON: [facility], CR, XR ANKLE LT MIN 3V, 09/03/2021, 10:16. [facility], CR, XR FOOT LT MIN 3V, 09/03/2021, 10:16. FINDINGS: Image quality: Excellent. Bones: There is a mildly displaced intra-articular comminuted fracture of the base of the 4th metatarsal extending into the tarsometatarsal joint. The largest fracture fragment is mildly rotated medially with up to 5 mm step-off at the articular surface. A tiny minimally displaced fracture is seen at the lateral aspect of the lateral cuneiform, best appreciated on coronal images. There is also a tiny fracture fragment at the anterolateral cuboid. A small comminuted intra-articular fracture at the medial base of the 2nd metatarsal is also noted, and injury to the Lisfranc ligament in this location is not excluded. Possible minimally displaced fracture through an accessory os trigonum. Degenerative changes are seen at the mortise joint with formation of small marginal osteophytes. Soft tissues: Soft tissue edema is seen in the foot and ankle. The articular cartilages, ligaments, and tendons are not well evaluated with CT. Second metatarsal base fracture is noted to be located in the region of the Lisfranc ligament. No widening of the 1st intermetatarsal space is seen. The musculature of the foot is normal in bulk. IMPRESSION: 1. Mildly displaced and rotated comminuted intra-articular fracture of the base of the 4th metatarsal. 2. Small minimally displaced fracture of the base of the 2nd metatarsal, in the region of the Lisfranc ligament attachment. Injury to the Lisfranc ligament is not excluded. 3. Tiny minimally displaced fractures at the lateral aspects of the lateral cuneiform and cuboid bones. 4. Possible minimally displaced fracture through an accessory os trigonum. Dictated by: Alireza Palma M.D. on 09/03/2021 at 14:26 Approved by: Alireza Palma M.D. on 09/03/2021 at 14:36
[2021-09-03 15:11] LABS: COVID19 -Nasal RAPID Negative (Negative)
--- NOTE | 2021-09-03 16:35 | PC.NURSE ---
PT ADMITTED VIA ED WITH INABILITY TO BEAR WEIGHT AFTER A FALL ON THURSDAY COMING OUT OF LOCAL RESTAURANT- CT SHOWS SOFT TISSUE SWELLING WELL SEVERAL FRACTURES TO LEFT METATARSALS- PT DENIES PAIN AT THIS TIME AND HAS LEFT LOWER EXTREMITY SPLINTED AND FREDERICK WRAPPED- HE IS DIABETIC AND WE WILL BE MONITORING BLOOD GLUCOSE- HE IS ALERT/ORIENTED AND COMPLIANT - SKIN INTACT - ORIENTED TO ROOM AND CALL LIGHT - REMAINS SALINE LOCKED
[2021-09-03] MEDS: OXYCODONE IR 5 MG TABLET PO (17:33)
[2021-09-03] MEDS: lisinopriL 20 MG TABLET PO (17:33)
--- NOTE | 2021-09-03 18:44 | P.HP_ITS ---
History of Present Illness History of Present Illness Date Patient Seen: 09/03/21 Time Patient Seen: 12:30 Chief complaint: Ankle Pain Narrative: Mr. Holly is an 81M with PMH DM, neuropathy, BPH, who presents with left foot pain. He was out at a restaurant 2 days ago and tripped and fell. He has since been unable to ambulate. He has significant left foot pain. In the ED workup was done, vitals notable for hypertension. Labs notable for hgb 13.4, creatinine 0.81. Xray showed no fracture. Due to persistent pain CT was ordered which confirmed multiple fractures of the left foot. He was admitted for further treatment. Patient History Medical History Arthritis Cancer Cough Diabetes Diabetes Enlarged prostate Facet arthropathy, lumbar Hand pain History of falling History of melanoma Hypertension Impairment of balance Lumbar radiculopathy Scoliosis due to degenerative disease of spine in adult patient Sensory peripheral neuropathy Urinary frequency Surgical History History of appendectomy History of tonsillectomy Family & Social History Family History Father Heart disease Social History: household members family Prior Living Arrangements House Safety & Behavioral: Feels Safe in Current Yes Environment Been Physically Hurt or No Threatened By a Person Suicidal Ideation Description None Suicide Plan Description No Plan Tobacco & Substance use: Tobacco type cigarettes,pipe Smoking Status Former smoker alcohol intake current alcohol intake frequency 0-2 drinks per day Substance Use Type does not use Meds Home Medications and Allergies Home Medications Medication Instructions Recorded Confirmed Type calcium carbonate 600 mg calcium 600 mg PO DAILY 02/23/20 09/03/21 History (1,500 mg) tablet (Calcium) cholecalciferol (vitamin D3) 50 50 mcg PO DAILY 02/23/20 09/03/21 History mcg (2,000 unit) capsule (Vitamin D3) lisinopril 20 mg tablet 20 mg PO QPM 02/23/20 09/03/21 History metformin 500 mg tablet 500 mg PO BID 02/23/20 09/03/21 History multivitamin 1 tab PO DAILY 02/23/20 09/03/21 History saw palmetto 160 mg capsule 330 mg PO DAILY 02/23/20 09/03/21 History simvastatin 40 mg tablet 40 mg PO BEDTIME 02/23/20 09/03/21 History terazosin 10 mg capsule 10 mg PO QPM 02/23/20 09/03/21 History vitamin B complex 1 tab PO DAILY 02/23/20 09/03/21 History albuterol sulfate 90 mcg/actuation 2 puff INHALATION Q4-6H PRN 07/09/20 09/03/21 History aerosol inhaler (Ventolin HFA) celecoxib 200 mg capsule (Celebrex) 200 mg PO DAILY #30 cap 07/09/20 09/03/21 Rx Allergies Allergy/AdvReac Type Severity Reaction Status Date / Time No Known Drug Allergies Allergy Verified 09/03/21 09:50 Review of Systems Review of Systems Narrative: 14 systems reviewed and negative aside from what is noted in HPI Exam Vital Signs (past 8 hours): - 09/03/21 11:00 09/03/21 11:30 09/03/21 12:30 Temperature Pulse Rate 65 82 87 Respiratory Rate Blood Pressure 138/61 187/78 H 163/70 H Pulse Oximetry 92 96 93 09/03/21 13:00 09/03/21 14:49 09/03/21 16:02 Temperature 98.6 F Pulse Rate 78 92 H 69 Respiratory Rate 18 Blood Pressure 155/67 H 152/65 H 168/77 H Pulse Oximetry 91 93 90 L Oxygen Delivery Method Nasal Cannula Narrative Exam Narrative: GEN: no acute distress HEENT: moist mucous membranes, PERRL NECK: trachea midline, no JVD CV: regular rate and rhythm, with no murmurs PULM: clear bilaterally, no wheezes, rhonchi, rales ABD: soft, nontender, nondistended, no organomegaly, normal bowel sounds EXT: warm and well perfused, left foot edematous to above ankle NEURO: awake alert, oriented, no focal deficits PSYCH: pleasant Objective Labs Result Diagrams: 09/03/21 12:32 09/03/21 12:32 Labs: Laboratory Results - last 24 hr 09/03/21 09/03/21 09/03/21 12:32 12:32 14:35 WBC 6.7 RBC 4.33 L Hgb 13.4 L Hct 39.3 L MCV 90.7 MCH 30.8 MCHC 34.0 RDW 14.4 Plt Count 172 Neut % (Auto) 73.1 Lymph % (Auto) 16.1 L [place] % (Auto) 8.5 Eos % (Auto) 1.5 L Baso % (Auto) 0.8 Neut # (Auto) 4900 Lymph # (Auto) 1100 [place] # (Auto) 600 Eos # (Auto) 100 Baso # (Auto) 100 Sodium 136 L Potassium 4.3 Chloride 101 Carbon Dioxide 30 BUN 14 Creatinine 0.81 Estimated GFR > 60.0 BUN/Creatinine Ratio 17.3 Glucose 131 H Calcium 8.9 Total Bilirubin 0.6 AST 28 ALT 16 Alkaline Phosphatase 54 Total Protein 7.6 Albumin 4.2 Globulin 3.4 Albumin/Globulin Ratio 1.2 SARS-CoV-2 (PCR) Negative Assessment & Plan Assessment & Plan narrative: Mr. Holly is an 81M with a recent and found to have left foot fracture. 1. Left foot fracture -mildly displaced fracture of 4th metatarsal, 2nd metatarsal, and lateral cuneiform and cuboid bones -possible accessory os trigonum fracture -ortho recommends splint for patient and to keep nonweightbearing -order pain control -order PT/OT 2. Type 2 Diabetes -hold metformin -ordered for insulin sliding scale 3. Hypertension -continue lisinopril 4. BPH -continue terazosin CODE: DNR/DNI Proxy: Maria Guadalupe Hart, daughter I have utilized all available resources to reconcile the patient's home me dications. Time Spent With Patient Critical Care time: I spent a total of [] minutes of critical care time on this patient's care today; this time is exclusive of procedural time.
--- NOTE | 2021-09-03 19:47 | PM.CN ---
History of Present Illness Consult details Date Patient Seen: 09/03/21 Time Patient Seen: 19:47 Chief complaint: Ankle Pain Reason for consult: Left foot pain left foot pain Requesting provider: Arlette Garcia Narrative: The patient is an 81-year-old gentleman who 2 days ago was leaving a restaurant when he tripped and fell. He does not recall the specifics of the fall or how his foot was injured but he was unable to bear weight on his left foot after the fall. He did not see improvement and was eventually taken to the emergency room today for evaluation. Ankle x-rays and foot a x-rays were obtained. He subsequently underwent a left foot CT scan. Orthopedic consultation has been obtained to determine definitive management. He does not complain of pain in any area other than his left foot. Meds Home Medications and Allergies Home Medications Medication Instructions Recorded Confirmed Type calcium carbonate 600 mg calcium 600 mg PO DAILY 02/23/20 09/03/21 History (1,500 mg) tablet (Calcium) cholecalciferol (vitamin D3) 50 50 mcg PO DAILY 02/23/20 09/03/21 History mcg (2,000 unit) capsule (Vitamin D3) lisinopril 20 mg tablet 20 mg PO QPM 02/23/20 09/03/21 History metformin 500 mg tablet 500 mg PO BID 02/23/20 09/03/21 History multivitamin 1 tab PO DAILY 02/23/20 09/03/21 History saw palmetto 160 mg capsule 330 mg PO DAILY 02/23/20 09/03/21 History simvastatin 40 mg tablet 40 mg PO BEDTIME 02/23/20 09/03/21 History terazosin 10 mg capsule 10 mg PO QPM 02/23/20 09/03/21 History vitamin B complex 1 tab PO DAILY 02/23/20 09/03/21 History albuterol sulfate 90 mcg/actuation 2 puff INHALATION Q4-6H PRN 07/09/20 09/03/21 History aerosol inhaler (Ventolin HFA) celecoxib 200 mg capsule (Celebrex) 200 mg PO DAILY #30 cap 07/09/20 09/03/21 Rx Allergies Allergy/AdvReac Type Severity Reaction Status Date / Time No Known Drug Allergies Allergy Verified 09/03/21 09:50 Review of Systems Review of Systems Narrative: States he was in his normal state of health up until his injury. He does note significant peripheral neuropathy making him unsteady on his feet. Exam Vital Signs (past 8 hours): - 09/03/21 12:30 09/03/21 13:00 09/03/21 14:49 Temperature Pulse Rate 87 78 92 H Respiratory Rate Blood Pressure 163/70 H 155/67 H 152/65 H Pulse Oximetry 93 91 93 09/03/21 16:02 Temperature 98.6 F Pulse Rate 69 Respiratory Rate 18 Blood Pressure 168/77 H Pulse Oximetry 90 L Oxygen Delivery Method Nasal Cannula Narrative Exam Narrative: Left foot is splinted in a posterior slab splint. Light touch is intact in the superficial and deep peroneal nerve distribution as well as the tibial nerve distribution. He can dorsiflex and plantar flex his toes on command. He is acutely tender over the midfoot and there is mild swelling there. He has to 2+dorsalis pedis and posterior tibial pulses. Objective Labs Result Diagrams: 09/03/21 12:32 09/03/21 12:32 Labs: Laboratory Results - last 24 hr 09/03/21 09/03/21 09/03/21 12:32 12:32 14:35 WBC 6.7 RBC 4.33 L Hgb 13.4 L Hct 39.3 L MCV 90.7 MCH 30.8 MCHC 34.0 RDW 14.4 Plt Count 172 Neut % (Auto) 73.1 Lymph % (Auto) 16.1 L [place] % (Auto) 8.5 Eos % (Auto) 1.5 L Baso % (Auto) 0.8 Neut # (Auto) 4900 Lymph # (Auto) 1100 [place] # (Auto) 600 Eos # (Auto) 100 Baso # (Auto) 100 Sodium 136 L Potassium 4.3 Chloride 101 Carbon Dioxide 30 BUN 14 Creatinine 0.81 Estimated GFR > 60.0 BUN/Creatinine Ratio 17.3 Glucose 131 H Calcium 8.9 Total Bilirubin 0.6 AST 28 ALT 16 Alkaline Phosphatase 54 Total Protein 7.6 Albumin 4.2 Globulin 3.4 Albumin/Globulin Ratio 1.2 SARS-CoV-2 (PCR) Negative CT scan of the left foot is reviewed and independently interpreted today. There may be an os trigonum fracture. There is a comminuted fracture of the base of the 2nd metatarsal and the base of the 4th metatarsal. These are essentially nondisplaced. Radiographs of the foot and ankle are essentially negative. There is no obvious malalignment on the radiographs to suggest significant Lisfranc's displacement. [facility] Medical History Arthritis Cancer Cough Diabetes Diabetes Enlarged prostate Facet arthropathy, lumbar Hand pain History of falling History of melanoma Hypertension Impairment of balance Lumbar radiculopathy Scoliosis due to degenerative disease of spine in adult patient Sensory peripheral neuropathy Urinary frequency Surgical History History of appendectomy History of tonsillectomy Family History Father Heart disease Social History household members: family lives independently: Yes caregiver/support person: Yes (Adult daughter) occupational status: previously employed other: Lives in 1 story home with ramp from garage. Tobacco & Substance Use Smoking Status: Former smoker alcohol intake: current Assessment & Plan Assessment & Plan narrative: The patient has a nondisplaced Lisfranc's fracture of his left foot. He is unsteady on his feet at baseline because of his diabetic neuropathy. He has multiple medical issues including diabetes. His home environment is a single-story home which she believes would be appropriate for use of a walker or wheelchair. He will require physical therapy evaluation for safety with a walker, wheelie scooter or a wheelchair with pivot transfers. He must remain nonweightbearing on his left foot. I have discussed his care with Dr. Adelina Morales, foot and ankle surgeon. She would like to see him next week in the office for follow-up and standing x-rays to determine stability of the fracture. If he safely can negotiate his home environment with a walker, scooter or wheelchair he can be discharged home. If not he will require assisted transfer. COVID-19 COVID-19 status: Negative Result date/Date tested (Pos, Neg/Pending): 09/03/21 Time Spent With Patient Critical Care time: I spent a total of [] minutes of critical care time on this patient's care today; this time is exclusive of procedural time.
[2021-09-03] MEDS: ATORVASTATIN 20 MG TABLET PO (21:02)
[2021-09-03] MEDS: DOCUSATE 100 MG CAPSULE PO (21:02)
[2021-09-03] MEDS: SODIUM CHLORIDE 0.9% FLUSH 10 ML IV (21:03)
[2021-09-03] MEDS: TERAZOSIN 5 MG CAPSULE 10 MG PO (21:34)
[2021-09-04] MEDS: OXYCODONE IR 5 MG TABLET PO ×4 (00:28→21:29)
[2021-09-04 04:59] VITALS: BP 129/50; PULSE 70; RESP 14; TEMP 36.2; O2SAT 92
[2021-09-04] MEDS: DOCUSATE 100 MG CAPSULE PO ×2 (08:37→21:31)
[2021-09-04] MEDS: CELECOXIB 200 MG CAPSULE PO (08:37)
[2021-09-04] MEDS: ENOXAPARIN 40 MG/0.4 ML SYRINGE SUBCUT (08:39)
--- NOTE | 2021-09-04 10:29 | PC.NURSE ---
Addendum entered by Karen Broussard R.N. 09/04/21 19:18: Patient was 3 person assist back to bed from chair to pivot. He does not listen well to instruction and wants to do it his way.. He did cooperate with us and used his walker and gaitbelt for extra help with transfer. He is pleasant and cooperative with care. Addendum entered by Karen Broussard R.N. 09/04/21 17:11: Patient worked with physical therapy and he will need SNF placement, he is sitting up in the chair. Given pain medication around 1430 and this has been helpful to him. Eating dinner now. Original Note: Assess- Patient is alert and oriented x3, given one percolone earlier for pain to l ankle that is wrapped in a splint and rosalio wrap. He states that he has some tingling on the top of his thigh, dr is aware of this. He also states that he had some blood in his urine and some dark colored blood was on a towel and sheet. It was minimal, will keep and eye on this. is also aware. Patient is non weight bearing on his l.lower extremity and is resting now. Percolone for discomfort has been helpful to him.
[2021-09-04 11:00] VITALS: BP 157/77; PULSE 74; RESP 20; O2SAT 91
--- NOTE | 2021-09-04 11:57 | PT.IPTN ---
Physical Therapy Treatment Note M2 PT-IP Current Condition Start: 09/03/21 12:22 Freq: Status: Active Protocol: Document 09/04/21 11:33 SP (Rec: 09/04/21 14:05 SP [id number]) Physical Therapy Current Condition Current Condition Evaluation Date 09/03/21 Treatment Diagnosis L ankle pain; difficulty in walking Onset Date 09/03/21 M3 PT-IP Subjective Start: 09/03/21 12:22 Freq: Status: Active Protocol: Document 09/04/21 11:33 SP (Rec: 09/04/21 14:05 SP [id number]) Subjective Physical Therapy Visit Type Type Treatment Note Visit Start Time 11:33 Visit Stop Time 11:57 Total Visit Minutes 24 Notes Daughter present for caregiver training, stated she has a bad R shoulder and not sure how much help can give. Number of SILVER [employer]ER BLASTING Visits 1 Physical Therapy Visit Comments Patient Comments agreed to do PT Therapy Pain Assessment Pain When Pain Assessed During Mobility Pain Present Pain Present Pain Reported Location left foot/ankle Intensity 2 Scale Used Numeric (0 - 10) Description With Movement Pain Behaviors Facial Grimacing,Guarding, Wincing Pain Management Techniques Distraction,Elevation, Modification of Treatment,Re- positioning,Timing of Activity with Medications M4 PT-IP Mobility and Gait Start: 09/03/21 12:22 Freq: Status: Active Protocol: Document 09/04/21 11:33 SP (Rec: 09/04/21 14:05 SP [id number]) PT-Bed Mobility Assessment Supine to Sit Supine to Sit Maximum Assistance,1 Person Assistance Scooting Scooting to Edge of Bed Standby Assistance PT-Transfer Assessment Sit to and From Stand Sit to and from Stand Moderate Assistance,Maximum Assistance,2 Person Assistance ,Use of Upper Extremities Equipment Transfer Assistive Device Gait Belt,Front Wheeled Walker Transfers Transfer Destination Chair Transfer Technique Squat Pivot Transfer Ability Level of Assist Maximum Assistance,1 Person Assistance,Use of Upper Extremities Comments Mobility Comments Pt elevated supine in bed when arrived. Instruction on BLE exercises: QS, GS, HS, SLR x5 reps each prep mobility. S[employer] educated NWB LLE updated per ortho with confirmation understood. Supine>sit with HOB flat no rail pt pulled from daughter's L hand and cued for daughter upper support at upper back on R, Max A x1 for trunk righting to sit (daughter stated is really hard on her R shld, S[employer] took over trunk support), scoot EOB w/BUE SBA. Sit>stand Max A x2 (SILVER [employer]ER BLASTING> daughter) w/ FWW, Max cues 1 UE downward pressure on FWW, other UE push from bed, no WB LLE and quad facilitation RLE to come to full stand w/ support for FWW stability. Pt able to stand with FWW and scoot R foot 2 but unable progress further, need to sit back on bed, Max A x2 descent. Daughter reported unable to help further due to causing shld pain. S[employer] assisted pt squat pivot transfer Max A x1 bed> chair. Pt able to scoot back in chair self. Assisted leg rests elevation, call light and all needs in reach. Pt had good recall to proper use of call light. Notifed nursing recommending SNF and 2 person squat pivot transfer for safety. Gait Assessment Comments Gait Comments unable, Squat pivot transfer only, NWB LLE. PT-Balance Assessment Sitting Balance and Reactions Static Sitting Balance Ability Good Dynamic Sitting Balance Ability Fair Standing Balance and Reactions Static Standing Balance Ability Poor Dynamic Standing Balance Ability Poor Device Used FWW M5 PT-IP Objective Assessments Start: 09/03/21 12:22 Freq: Status: Active Protocol: Document 09/03/21 11:45 AB (Rec: 09/03/21 12:49 AB [id number]) Orientation Orientation/Cognition Level of Alertness Alert Orientation Name,Place,Situation Language Function Ability No Deficits Noted Safety Awareness Understands Safety Issues Memory Description No Deficits Noted Gross Range of Motion Lower Extremity ROM Impairments L ankle pain limiting ROM assessment Strength Lower Extremity Strength Assessment Left Impaired Hip 3+/5 Knee 3+/5 Comments Strength Comments L ankle pain limiting MMT assessment Sensation Assessment Sensation Gross Sensation Right LE Impaired,Left LE Impaired Light Touch Impaired Proprioception (Position) Impaired Comments Sensation Comments stated that he has BLE neuropathy Muscle Tone Muscle Tone WNL Yes M6 PT-IP Treatment Start: 09/03/21 12:22 Freq: Status: Active Protocol: Document 09/04/21 11:33 SP (Rec: 09/04/21 14:05 SP [id number]) Physical Therapy Treatment Exercises Exercises Gluteal Sets,Quad Sets,Heel Slides,Straight Leg Raises, Seated Knee Flexion/Extension Education Education Provided Safety M7 PT-IP Assessment and Plan Start: 09/03/21 12:22 Freq: Status: Active Protocol: Document 09/04/21 11:33 SP (Rec: 09/04/21 14:05 SP [id number]) PT Summary Assessment and Plan Potential Rehabilitation Potential Fair Status of Condition at Evaluation Evolving Summary Impairments Pain,ROM,Strength,Balance, Coordination,Sensation,Tone, Cognition,Bed Mobility, Transfers,Gait,Activity Tolerance Progress Towards Goals Progressing Toward Goals,Slow Progress due to Pain,Slow Progress due to Activity Tolerance Assessment Summary Pt requires Max A x1 for bed mob, Max A x2 for squat pivot transfer with max cues for maintaining updated NWB LLE. [employer] recommending SNF for increase strength and functional mobility, with pt and daughter in agreement, she is unable to assist him. Will continue to assess progress. Goals Bed Mobility Goal Independent Transfer Goal Standby Assistance,Front Wheeled Walker Gait Goal Standby Assistance,Front Wheel Walker Gait Distance 100 Other Goals improve ambulation using 4WW/ SPC 150 ft SBA Days to Meet Goals 10 Frequency of Treatment Frequency Of Treatment Once a Day Treatment Plan Physical Therapy Treatment Plan Bed Mobility Training,Transfer Training,Gait Training, Therapeutic Exercise,Balance Retraining,Discharge Planning, Hot or Cold Pack,Neuromuscular Re-ed,Coordination Retraining ,Manual Therapy Other Recommendations and Next Treatment bed mob, transfers, standing w Focus / FWW if able maintain NWB on LLE. Precautions Other Precautions NWB LLE Weight Bearing Status Weight Bearing Status Non-Weight Bearing Allowed Weight Bearing Amount (enter % 0% or #) (%) Recommendations To Nursing Amount of Assist Needed 2 Person Assist Discharge Recommendations PT Discharge Recommendations SNF Rehab Equipment Needed for Home Before Defer to SNF, FWW if not safe Discharge with 4WW/SPC Daughter ordered a w/c. Transportation Needs at Discharge Wheelchair/Cabulance
[2021-09-04] MEDS: INSULIN LISPRO 100 UNIT/ML 3ML VIAL SUBCUT (12:20)
--- NOTE | 2021-09-04 13:28 | CM.DPNOTE ---
Emailed snf referral packet per [place] to [facility] and [facility]. Received confirm. Natasha House CM Asst.
[2021-09-04 13:30] LABS: Bacteria Urine Occasional (0-1); Culture Indicated Urine Specimen Cultured; RBC Urine 10-30/HPF (0-5/HPF); WBC Urine 5-10/HPF (0-5/HPF)
--- NOTE | 2021-09-04 14:11 | P.PN_ITS ---
Subjective Subjective Date Patient Seen: 09/04/21 Time Patient Seen: 08:00 Interval history: His pain is very well controlled. Exam Vital Signs (past 8 hours): - 09/04/21 11:00 Pulse Rate 74 Respiratory Rate 20 Blood Pressure 157/77 H Pulse Oximetry 91 Oxygen Delivery Method Room Air Oxygen Flow Rate 0 Narrative Exam Narrative: GEN: no acute distress CV: regular rate and rhythm, with no murmurs PULM: clear bilaterally, no wheezes, rhonchi, rales ABD: soft, nontender, nondistended, no organomegaly, normal bowel sounds EXT: warm and well perfused, left foot edematous to above ankle, now splinted Objective Labs Result Diagrams: 09/03/21 12:32 09/03/21 12:32 Labs: Laboratory Results - last 24 hr 09/03/21 09/04/21 14:35 12:28 Urine RBC 10-30/hpf H Urine WBC 5-10/hpf H Urine Bacteria Occasional (0-1) Ur Culture Indicated? Specimen cultured SARS-CoV-2 (PCR) Negative [facility] Medical History Arthritis Cancer Cough Diabetes Diabetes Enlarged prostate Facet arthropathy, lumbar Hand pain History of falling History of melanoma Hypertension Impairment of balance Lumbar radiculopathy Scoliosis due to degenerative disease of spine in adult patient Sensory peripheral neuropathy Urinary frequency Surgical History History of appendectomy History of tonsillectomy Family History Father Heart disease Social History household members: family lives independently: Yes caregiver/support person: Yes (Adult daughter) occupational status: previously employed other: Lives in 1 story home with ramp from garage. Smoking Status: Former smoker alcohol intake: current Assessment & Plan Assessment & Plan narrative: Mr. Holly is an 81M with a recent and found to have left foot fracture. 1. Left foot fracture -mildly displaced fracture of 4th metatarsal, 2nd metatarsal, and lateral cuneiform and cuboid bones -possible accessory os trigonum fracture -ortho recommends splint for patient and to keep nonweightbearing, follow up with ortho in one week -order pain control -order PT/OT 2. Type 2 Diabetes with peripheral neuropathy -hold metformin -ordered for insulin sliding scale 3. Hypertension -continue lisinopril 4. BPH -continue terazosin Patient medically stable for discharge, remains unsteady on feet. Will need either DME at home or SNF Time Spent With Patient Critical Care time: I spent a total of [] minutes of critical care time on this patient's care today; this time is exclusive of procedural time.
--- NOTE | 2021-09-04 14:47 | OT.IP.EVAL ---
Past Medical History (Last Reviewed 09/03/21 @ 19:49 by Colin Romero MD) Arthritis Cancer Cough Diabetes Diabetes Enlarged prostate Facet arthropathy, lumbar Hand pain History of appendectomy History of falling History of melanoma History of tonsillectomy Hypertension Impairment of balance Lumbar radiculopathy Scoliosis due to degenerative disease of spine in adult patient Sensory peripheral neuropathy Urinary frequency Surgical History (Last Reviewed 09/03/21 @ 19:49 by Colin Romero MD) History of appendectomy History of tonsillectomy Occupational Therapy Inpatient Evaluation/Re-Eval M1 PT/OT-IP Prior Functional Status Start: 09/03/21 12:22 Freq: Status: Active Protocol: Document 09/04/21 14:49 [facility] (Rec: 09/04/21 15:08 [facility] [id number]) Medical Review Prior Functional Status Medical History Reviewed Yes Communication able to make needs known Mobility and Gait pt stated that he is independent with all mobilities and ambulation without AD but occasionally uses a SPC for outdoor mobility when he feels unsteady due to BLE neuropathy Activities of Daily Living and IADL's Pt states was completely independent for all ADL, IADL, driving, did his own medications and finances. Social History Household Members family Living Arrangements House Number of Floors (Floors) One Floor Number of Stairs To Enter/Railing? ramp from to garage to enter Home Environment Standard Height Toilet,Walk in Shower,Built-In Shower Seat, Ramp Home Equipment Four Wheel Walker,Straight Cane,Hand Held Shower,Grab Bars In Shower Additional Social History Comment pt lives with daughter and stated that his daughter can assist him M2 OT-IP Current Condition Start: 09/04/21 14:48 Freq: Status: Active Protocol: Document 09/04/21 14:49 [facility] (Rec: 09/04/21 15:08 [facility] [id number]) Occupational Therapy Current Condition Current Condition Evaluation Date 09/04/21 Treatment Diagnosis Non displaced left Lisfranc's foot, decreased mobility Diagnosis Onset Date 09/03/21 M3 OT- IP Subjective and Pain Start: 09/04/21 14:48 Freq: Status: Active Protocol: Document 09/04/21 14:49 [facility] (Rec: 09/04/21 15:08 [facility] [id number]) OT- Subjective Occupational Therapy Visit Type Type Initial Evaluation Visit Start Time 14:25 Visit Stop Time 14:47 Total Visit Minutes 22 Occupational Therapy Visit Comments Patient Comments Pt agreed to participate in OT eval. Patient/Caregiver Goals To go to skilled rehab prior to going home. OT Pain Assessment Pain When Pain Assessed At Rest Pain Present Pain Present Pain Reported Location left foot/ankle Intensity 4 Scale Used Numeric (0 - 10) M4 OT- IP ADL's Start: 09/04/21 14:48 Freq: Status: Active Protocol: Document 09/04/21 14:49 [facility] (Rec: 09/04/21 15:08 [facility] [id number]) OT ADL-Grooming Comments OT Grooming Comments Not performed. OT ADL-Oral Care Comments Oral Care Comments Not performed. OT ADL-Dressing General Eval Lower Body Dressing Ability Maximum Assistance Comments OT Dressing Comments Pt not able to stand and therefore needing total assist for pants management needs or may have to do while lying down. OT ADL-Toileting Comments OT Toileting Comments Pt not been able to stand at this time and using a urinal. Initiated talking to pt about equipment needs of drop arm BSC. M5 OT- IP IADL's Start: 09/04/21 14:48 Freq: Status: Active Protocol: Document 09/04/21 14:49 [facility] (Rec: 09/04/21 15:08 [facility] [id number]) OT-Instrumental Activities of Daily Living Home Safety Awareness Awareness of Need for Assistance at Home Good Awareness Ability to Problem Solve Emergency Able to Problem Solve Situations Home Safety Comments Able this time due to pt not able to stand will need extensive assist for all ADl and mobility needs. Medication Management Medication Management No Deficits Identified Money Management Money Management No Deficits Identified Meal Preparation Meal Preparation Comments Pt will not be able to mobilize due to his NWB for LLE. Wellness Assistant Wellness Assistant Comments Pt will not be able to mobilize due to his NWB for LLE. M6 OT- IP Functional Cognition Start: 09/04/21 14:48 Freq: Status: Active Protocol: Document 09/04/21 14:49 [facility] (Rec: 09/04/21 15:08 [facility] [id number]) Cognitive Factors Limiting Selfcare Function Cognitive Ability Level of Alertness Alert Patient Orientation Name,Place,Situation Attention Span Ability Capable of Focused Attention, Capable of Sustained Attention Ability to Follow Commands Able to Follow Multi-Step Commands Cognitive Comments Cognitive Assessment Comments Pt intact for cognitive needs. OT- Vision and Hearing OT- Hearing Assessment OT- Hearing Assessment WFL OT- Vision Assessment Visual Acuity Glasses For Reading M7 OT- IP Mobility and Balance Start: 09/04/21 14:48 Freq: Status: Active Protocol: Document 09/04/21 14:49 [facility] (Rec: 09/04/21 15:08 [facility] [id number]) OT-Transfer Assessment Sit to and From Stand Sit to and from Stand Total Assistance Comments Mobility Comments Unable to stand pt up at this time and best to just do squat pivot transfer to the right at this time. FILM MOUNTER able to perform with MAX AX1. To explore possible use of sliding board transfers. OT- Balance Assessment Sitting Balance and Reactions Static Sitting Balance Ability Good Dynamic Sitting Balance Ability Fair Comments Other Balance Tests/Deviations/Treatment Pt unable to come to stand at : this time due to weakness, neuropathy, and NWB to LLE. M8 OT- IP Objective Assessments Start: 09/04/21 14:48 Freq: Status: Active Protocol: Document 09/04/21 14:49 [facility] (Rec: 09/04/21 15:08 [facility] [id number]) OT Gross Range of Motion Upper Extremity Range of Motion Assessment Within Functional Limits OT Strength Upper Extremity Strength Assessment Within Functional Limits OT-Muscle Tone Assessment Muscle Tone WNL Yes M9 OT- IP Assessment and Plan Start: 09/04/21 14:48 Freq: Status: Active Protocol: Document 09/04/21 14:49 [facility] (Rec: 09/04/21 15:08 [facility] [id number]) OT Summary Assessment and Plan Potential Rehabilitation Potential Good Analytic Complexity at Evaluation Moderate Summary OT Impairments Strength,Balance,Functional Mobility,Dressing,Toileting, Bathing,Toilet Transfers, Shower Transfers,Activity Tolerance Progress Towards Goals Slow Progress due to Pain,Slow Progress due to Medical Issues,Slow Progress due to Activity Tolerance Assessment Summary Pt MOD complexity and main barriers are pain, weakness, and now unable to come to stand with one person. Pt needing extensive assist for all ADL and functional mobility needs and too great for his daughter to assist at home. Pt would benefit from skilled rehab to get stronger and continue to work on safe option for transfers and ADl at this time. Pt's daughter has been educated by FILM MOUNTER and pt by OT to initiate getting equipment to help with his independence for transfer and ADl needs. Goals Toileting Goal Independent Bathing Goal Independent Toilet Transfer Goal Independent Shower Transfer Goal Independent Patient/Caregiver Education Goal Caregiver Independent Assisting Patient Days to Meet Goals 30 Frequency of Treatment Frequency Of Treatment Once a Day Treatment Plan OT Treatment Plan ADL Training,Functional Mobility,Patient/Family Education,Discharge Planning Other Treatment Recommendations and Next Squat pivot transfer to drop Treatment Focus arm BSC with MAX AX 1. Discharge Recommendations OT Discharge Recommendations SNF Rehab Home Equipment Needs drop arm BSC, wc with removeable armrest, tub bench Transportation Needs at Discharge Wheelchair/Cabulance
--- NOTE | 2021-09-04 17:31 | CM.DANOTE ---
DCP/Assessment: Reviewed chart. Patient admitted to [facility] after fall which he sustained left ankle fx. Patient seen by therapy this AM and SNF recommended. Patient resides with his daughter in [facility]. Patient reports at baseline that he is I in ADL's. Patient agreeable to SNF for rehabilitation. Patient prefers contracted SNF for services. Placed call to Yara at [facility] she is agreeable to accept and attempting authorization with [employer]. Patient and daughter to be notified of acceptance and pending authorization in AM on 09-05-21. PASSR needed. P: Anticipate [facility] once authorization obtained. K[facility] Discharge Planning/Care Management Advanced directive, confirm from FAMILY Start: 09/03/21 16:16 Freq: Q24H Status: Active Protocol: Document 09/03/21 16:16 T[facility] (Rec: 09/03/21 16:31 [facility] [id number]) Advance Directive, confirm on record Time 16:31 Person contacted MARIA GUADALUPE Guardado received No CM Discharge Assessment Start: 09/04/21 17:29 Freq: Status: Active Protocol: Document 09/04/21 17:29 [facility] (Rec: 09/04/21 17:31 [facility] [id number]) Discharge Planning Assessment Assigned Quality Control Microbiology Supervisor LENY Veliz Contact Information Maria Guadalupe Hart (daughter) ph# Advance Directives? Yes Advance Directives on File No History Provided By Patient,Family Member,Medical Record Prior Living Arrangements House Household Members family Independent with ADL's Yes Is patient alert and oriented? Yes Caregiver for Another No Patient/Family Preference Intermediate Facility Barriers to Discharge No Discharge Plan Intermediate Facility Transportation Arrangement Facility to transport. Referrals Initiated Intermediate Medicare Choice List Provided Yes Has Agency SNF been contacted Yes Comment Patient requesting contracted SNF for rehabiliation. Referral given to [facility]. Yara working on authoriztion. PT/ OT evaluations completed.
[2021-09-04] MEDS: lisinopriL 20 MG TABLET PO (17:35)
[2021-09-04] MEDS: TERAZOSIN 5 MG CAPSULE 10 MG PO (17:36)
[2021-09-04 19:00] VITALS: O2SAT 92
[2021-09-04 19:20] VITALS: BP 153/72; PULSE 73; RESP 17; TEMP 36.2; O2SAT 92
[2021-09-04] MEDS: ATORVASTATIN 20 MG TABLET PO (21:28)
[2021-09-04] MEDS: SODIUM CHLORIDE 0.9% FLUSH 10 ML IV (21:31)
[2021-09-05 01:54] VITALS: BP 173/83; PULSE 77; RESP 17; TEMP 36; O2SAT 92
[2021-09-05] MEDS: OXYCODONE IR 5 MG TABLET PO ×2 (06:20→12:23)
[2021-09-05 08:20] VITALS: BP 167/86; PULSE 80; RESP 18; O2SAT 95
--- NOTE | 2021-09-05 08:39 | P.DS_ITS ---
History of Present Illness History of Present Illness Chief complaint: Ankle Pain Narrative: Mr. Holly is an 81M with PMH DM, neuropathy, BPH, who presents with left foot pain. He was out at a restaurant 2 days ago and tripped and fell. He has since been unable to ambulate. He has significant left foot pain. In the ED workup was done, vitals notable for hypertension. Labs notable for hgb 13.4, creatinine 0.81. Xray showed no fracture. Due to persistent pain CT was ordered which confirmed multiple fractures of the left foot. He was admitted for further treatment. Discharge Providers Provider Date of admission: 09/03/21 14:04 Discharge Date: 09/05/21 Primary care physician: Sakina Rae PA-C Consults: 09/03/21 11:29 Consult to Physical Therapy Evaluate & Treat Comment: ankle sprain cant walk Physician Instructions: Evaluate and Treat 09/03/21 14:41 Consult to Physical Therapy Evaluate & Treat Comment: Physician Instructions: Evaluate and Treat 09/03/21 19:35 Consult to Orthopedic Surgery Routine Comment: Consulting Provider: Colin Romero Reason for consultation: left foot fracture Has provider been notified: Yes 09/03/21 19:58 Consult to Physical Therapy Evaluate & Treat Comment: NWB LLE. Train with walker, wheelie scooter or WC Physician Instructions: Evaluate and Treat 09/04/21 11:25 Consult to Home Health Routine Comment: DX: left ankle fracture Reason For Exam: FWW for home use 09/04/21 12:16 Consult to Occupational Therapy Evaluate & Treat Comment: Physician Instructions: Evaluate and treat Discharge provider: Otilio Clements MD Summary Hospital Course Discharge Diagnosis: 1. Left foot fractures 2. Type 2 Diabetes with peripheral neuropathy 3. Hypertension 4. BPH Hospital Course: Mr. Holly was admitted after a fall. He had multiple fractures in his left foot, his foot was splinted. Orthopedic consult was done who recommended patient be nonweightbearing on left foot. Follow up with ortho, Dr. Tolbert, in one week to evaluate how foot was healing. His pain was well controlled. He was discharged to SNF for further rehab. Exam Vital Signs (past 8 hours): - 09/05/21 01:54 09/05/21 08:20 Temperature 96.8 F L Pulse Rate 77 80 Respiratory Rate 17 18 Blood Pressure 173/83 H 167/86 H Pulse Oximetry 92 95 Oxygen Delivery Method Room Air Oxygen Flow Rate 0 Narrative Exam Narrative: GEN: no acute distress CV: regular rate and rhythm, with no murmurs PULM: clear bilaterally, no wheezes, rhonchi, rales ABD: soft, nontender, nondistended, no organomegaly, normal bowel sounds EXT: warm and well perfused, left foot edematous to above ankle, now splinted Objective Labs Result Diagrams: 09/03/21 12:32 09/03/21 12:32 Labs: Laboratory Results - last 24 hr 09/04/21 12:28 Urine RBC 10-30/hpf H Urine WBC 5-10/hpf H Urine Bacteria Occasional (0-1) Ur Culture Indicated? Specimen cultured [facility] Medical History Arthritis Cancer Cough Diabetes Diabetes Enlarged prostate Facet arthropathy, lumbar Hand pain History of falling History of melanoma Hypertension Impairment of balance Lumbar radiculopathy Scoliosis due to degenerative disease of spine in adult patient Sensory peripheral neuropathy Urinary frequency Surgical History History of appendectomy History of tonsillectomy Family History Father Heart disease Social History household members: family lives independently: Yes caregiver/support person: Yes (Adult daughter) occupational status: previously employed other: Lives in 1 story home with ramp from garage. Smoking Status: Former smoker alcohol intake: current Discharge Plan Discharge Plan Patient Disposition: SNF I certify the postop hospital group home care is medically necessary on a continuing basis for any conditions for which he/ she received care during this hospitalization.: Yes The receiving facility has agreed to accept transfer and provide medical willis tment.: Yes Discharge orders & Medications Prescriptions: New docusate sodium 100 mg Capsule 100 mg PO BID Qty: 10 0RF oxycodone 5 mg Tablet 5 mg PO Q6HR PRN (Reason: Pain, Moderate (4-6)) Qty: 5 0RF polyethylene glycol 3350 [Miralax] 17 gram powder in packet 17 g PO DAILY Qty: 10 0RF Continued metformin 500 mg Tablet 500 mg PO BID 0RF terazosin 10 mg Capsule 10 mg PO QPM 0RF multivitamin Tablet 1 tab PO DAILY 0RF lisinopril 20 mg Tablet 20 mg PO QPM 0RF simvastatin 40 mg Tablet 40 mg PO BEDTIME 0RF calcium carbonate [Calcium 600] 600 mg calcium (1,500 mg) Tablet 600 mg PO DAILY 0RF saw palmetto 160 mg Capsule 330 mg PO DAILY 0RF vitamin B complex Tablet 1 tab PO DAILY 0RF cholecalciferol (vitamin D3) [Vitamin D3] 50 mcg (2,000 unit) Capsule 50 mcg PO DAILY 0RF albuterol sulfate [Ventolin HFA] 90 mcg/actuation HFA aerosol inhaler 2 puff inhalation Q4-6H PRN (Reason: Adequate Ventilation) 0RF Label Comments: used a month ago celecoxib [Celebrex] 200 mg capsule 200 mg PO DAILY Qty: 30 2RF Follow up/Referrals: Adelina Morales MD [Physician] - (Follow up w/ Dr Morales in 1 week for follow-up and standing x-rays to determine stability of the fracture. ) Sakina Rae PA-C [Primary Care Provider] - Discharge Health Status Multidrug resistant organism: No MDRO Diet/Activity/Treatments Diet: Carb-consistent/Diabetic Liquid consistency: Normal/Thin Food texture: Regular Activity: Non weight bearing left lower extremity Special Rehabilitation Services Rehab type: Physical therapy and Occupational therapy Discharge Data Primary Care Provider: Sakina Rae Attending Provider: Otilio Clements
[2021-09-05] MEDS: INSULIN LISPRO 100 UNIT/ML 3ML VIAL SUBCUT ×2 (08:40→12:23)
[2021-09-05] MEDS: DOCUSATE 100 MG CAPSULE PO (08:40)
[2021-09-05] MEDS: CELECOXIB 200 MG CAPSULE PO (08:40)
[2021-09-05 09:26] VITALS: TEMP 36.2
--- NOTE | 2021-09-05 09:30 | PT.IPTN ---
Physical Therapy Treatment Note M2 PT-IP Current Condition Start: 09/03/21 12:22 Freq: Status: Active Protocol: Document 09/04/21 11:33 SP (Rec: 09/04/21 14:05 SP [id number]) Physical Therapy Current Condition Current Condition Evaluation Date 09/03/21 Treatment Diagnosis L ankle pain; difficulty in walking Onset Date 09/03/21 M3 PT-IP Subjective Start: 09/03/21 12:22 Freq: Status: Active Protocol: Document 09/05/21 09:14 [facility] (Rec: 09/05/21 11:29 [facility] [id number]) Subjective Physical Therapy Visit Type Type Treatment Note Visit Start Time 09:14 Visit Stop Time 09:30 Total Visit Minutes 16 Notes Co-treat w/ OT Number of CROSS ROLLER Visits 2 Physical Therapy Visit Comments Patient Comments agreed to do PT Therapy Pain Assessment Pain When Pain Assessed At Rest Pain Present Pain Present Pain Reported Location left foot/ankle Scale Used not quantified Description Aching,With Movement Pain Behaviors Guarding Pain Management Techniques Distraction,Elevation,Re- positioning M4 PT-IP Mobility and Gait Start: 09/03/21 12:22 Freq: Status: Active Protocol: Document 09/05/21 09:14 [facility] (Rec: 09/05/21 11:29 [facility] [id number]) PT-Bed Mobility Assessment Scooting Scooting to Edge of Bed Standby Assistance PT-Transfer Assessment Sit to and From Stand Sit to and from Stand Moderate Assistance,2 Person Assistance,Use of Upper Extremities Equipment Transfer Assistive Device Gait Belt,Front Wheeled Walker Transfers Transfer Destination Chair Transfer Technique Stand Pivot Transfer Ability Level of Assist Minimal Assistance,2 Person Assistance,Use of Upper Extremities Comments Mobility Comments Pt sitting EOB opon arrival from therapy w/ OT in room. Pt then performed 1x10 bilateral ankle pumps, seated knee extension, seated marching, and glute sets. He reported fatigue and feeling of muscle weakness following exercise. Pt then sit<>stand w/ FWW Mod A x2 and performed stand pivot w/ FWW and Min A x2 w/ verbal cues and FWW management while maintaining NWB LLE. Pt mod A x2 for slow descent into chair and expressed fatigue and was not agreeable to further treatment. Pt left in chair w/ all needs in reach and OT in room. Gait Assessment Comments Gait Comments NWB LLE, stand pivot w/ FWW only PT-Balance Assessment Sitting Balance and Reactions Static Sitting Balance Ability Good Dynamic Sitting Balance Ability Good Standing Balance and Reactions Static Standing Balance Ability Poor Dynamic Standing Balance Ability Poor Device Used FWW M5 PT-IP Objective Assessments Start: 09/03/21 12:22 Freq: Status: Active Protocol: Document 09/03/21 11:45 AB (Rec: 09/03/21 12:49 [facility] [id number]) Orientation Orientation/Cognition Level of Alertness Alert Orientation Name,Place,Situation Language Function Ability No Deficits Noted Safety Awareness Understands Safety Issues Memory Description No Deficits Noted Gross Range of Motion Lower Extremity ROM Impairments L ankle pain limiting ROM assessment Strength Lower Extremity Strength Assessment Left Impaired Hip 3+/5 Knee 3+/5 Comments Strength Comments L ankle pain limiting MMT assessment Sensation Assessment Sensation Gross Sensation Right LE Impaired,Left LE Impaired Light Touch Impaired Proprioception (Position) Impaired Comments Sensation Comments stated that he has BLE neuropathy Muscle Tone Muscle Tone WNL Yes M6 PT-IP Treatment Start: 09/03/21 12:22 Freq: Status: Active Protocol: Document 09/05/21 09:14 [facility] (Rec: 09/05/21 11:29 [facility] [id number]) Physical Therapy Treatment Exercises Exercises Ankle Pumps,Gluteal Sets, Straight Leg Raises,Seated Knee Flexion/Extension Education Education Provided Safety M7 PT-IP Assessment and Plan Start: 09/03/21 12:22 Freq: Status: Active Protocol: Document 09/05/21 09:14 [facility] (Rec: 09/05/21 11:29 [facility] [id number]) PT Summary Assessment and Plan Potential Rehabilitation Potential Fair Status of Condition at Evaluation Evolving Summary Impairments Pain,ROM,Strength,Balance, Coordination,Sensation,Tone, Cognition,Bed Mobility, Transfers,Gait,Activity Tolerance Progress Towards Goals Progressing Toward Goals,Slow Progress due to Pain,Slow Progress due to Activity Tolerance Assessment Summary Pt continues to have difficulty standing and performing transfers while NWB LLE requiring Mod A x2 for stand and Min A x2 w/ verbal and tactile cues for stand pivot w/ FWW. Pt also limited by low tolerance for activity and weakness. He will require SNF to improve strength and functional independence. Goals Bed Mobility Goal Independent Transfer Goal Standby Assistance,Front Wheeled Walker Gait Goal Standby Assistance,Front Wheel Walker Gait Distance 100 Other Goals improve ambulation using 4WW/ SPC 150 ft SBA Days to Meet Goals 10 Frequency of Treatment Frequency Of Treatment Once a Day Treatment Plan Physical Therapy Treatment Plan Bed Mobility Training,Transfer Training,Gait Training, Therapeutic Exercise,Balance Retraining,Discharge Planning, Hot or Cold Pack,Neuromuscular Re-ed,Coordination Retraining ,Manual Therapy Other Recommendations and Next Treatment bed mob, transfers, standing w Focus / FWW if able maintain NWB on LLE. Precautions Other Precautions NWB LLE Weight Bearing Status Weight Bearing Status Non-Weight Bearing Allowed Weight Bearing Amount (enter % 0% or #) (%) Recommendations To Nursing Amount of Assist Needed 2 Person Assist Discharge Recommendations PT Discharge Recommendations SNF Rehab Equipment Needed for Home Before Defer to SNF, FWW if not safe Discharge with 4WW/SPC Daughter ordered a w/c. Transportation Needs at Discharge Wheelchair/Cabulance
--- NOTE | 2021-09-05 09:32 | OT.IP.TRT ---
Occupational Therapy Treatment Note M2 OT-IP Current Condition Start: 09/04/21 14:48 Freq: Status: Active Protocol: Document 09/04/21 14:49 [facility] (Rec: 09/04/21 15:08 [facility] [id number]) Occupational Therapy Current Condition Current Condition Evaluation Date 09/04/21 Treatment Diagnosis Non displaced Lisfranc's foot, decreased mobility Diagnosis Onset Date 09/03/21 M3 OT- IP Subjective and Pain Start: 09/04/21 14:48 Freq: Status: Active Protocol: Document 09/05/21 09:46 [facility] (Rec: 09/05/21 09:55 [facility] [id number]) OT- Subjective Occupational Therapy Visit Type Type Treatment Note Visit Start Time 08:54 Visit Stop Time 09:30 Total Visit Minutes 36 Occupational Therapy Visit Comments Patient Comments Pt agreed to do sponge bath while seated. AUTOMATIC MAINTAINER also present at the end of the session during mobility needs. Patient/Caregiver Goals TO go to skilled rehab. OT Pain Assessment Pain When Pain Assessed At Rest Pain Present Pain Present Pain Reported Location left foot/ankle Intensity 3 Scale Used Numeric (0 - 10) M4 OT- IP ADL's Start: 09/04/21 14:48 Freq: Status: Active Protocol: Document 09/05/21 09:46 [facility] (Rec: 09/05/21 09:55 [facility] [id number]) OT NSO-Zyig-Pvtezaj General Evaluation Self-Feeding Ability Independent OT ADL-Grooming General Evaluation Grooming Ability Independent Areas Needing Assistance Retrieving/Set-up of Grooming Items Comments OT Grooming Comments Able to do while seated. OT ADL-Oral Care General Eval Oral Care Ability Independent OT ADL-Dressing General Eval Lower Body Dressing Ability Moderate Assistance Areas Needing Assistance Socks Comments OT Dressing Comments Pt able to practice with employment officer to annalise his socks and then able to comfortable cross his leg over to annalise his socks. Pt will need assist to get clothing items over his hips, otherwise may be easier for him to roll side to side for clothing management needs. Suggested since pt going to rehab best to have loose fitting clothing and shoes. OT ADL-Toileting General Evaluation Toileting Ability Standby Assistance Devices Toileting Assistive Devices Urinal Comments OT Toileting Comments Pt able to use urinal at ths edge of the bed. OT ADL-Bathing Bathing Type Bathing Type Sponge Bath General Evaluation Bathing Ability Moderate Assistance Areas Needing Assistance Wash/Dry Back,Wash/Dry Lower Extremities Comments OT Bathing Comments Pt unable to reach his behind but not wanting assist at this time to complete. Pt agreed on assist for his back and LE. M5 OT- IP IADL's Start: 09/04/21 14:48 Freq: Status: Active Protocol: Document 09/04/21 14:49 [facility] (Rec: 09/04/21 15:08 [facility] [id number]) OT-Instrumental Activities of Daily Living Home Safety Awareness Awareness of Need for Assistance at Home Good Awareness Ability to Problem Solve Emergency Able to Problem Solve Situations Home Safety Comments Able this time due to pt not able to stand will need extensive assist for all ADl and mobility needs. Medication Management Medication Management No Deficits Identified Money Management Money Management No Deficits Identified Meal Preparation Meal Preparation Comments Pt will not be able to mobilize due to his NWB for LLE. Sewage Disposal Engineer Sewage Disposal Engineer Comments Pt will not be able to mobilize due to his NWB for LLE. M6 OT- IP Functional Cognition Start: 09/04/21 14:48 Freq: Status: Active Protocol: Document 09/05/21 09:46 [facility] (Rec: 09/05/21 09:55 [facility] [id number]) Cognitive Factors Limiting Selfcare Function Cognitive Comments Cognitive Assessment Comments NO issues noted. M7 OT- IP Mobility and Balance Start: 09/04/21 14:48 Freq: Status: Active Protocol: Document 09/05/21 09:46 [facility] (Rec: 09/05/21 09:55 [facility] [id number]) OT- Bed Mobility Assessment Rolling Type of Rolling Roll to Left Level of Assistance Head of Bed Elevated,Bedrails Supine to Sit Supine to Sit Assist Standby Assistance,1 Person Assistance Scooting Scooting to Edge of Bed Standby Assistance,1 Person Assistance OT-Transfer Assessment Sit to and From Stand Sit to and from Stand Moderate Assistance,2 Person Assistance Transfers Transfer Ability Moderate Assistance,2 Person Assistance Technique Transfer Destination Bed,Chair Transfer Technique Stand Step Pivot Devices Transfer Assistive Devices Gait Belt,Front Wheeled Walker Comments Mobility Comments Pt able to stand with MODA X 2 to the FWW and able to hop and slide his right foot side to side and just resting his left foot on the ground [facility] Pt too tired to attempt to stand again. OT- Balance Assessment Sitting Balance and Reactions Static Sitting Balance Ability Good Dynamic Sitting Balance Ability Fair Standing Balance and Reactions Static Standing Balance Ability Poor M8 OT- IP Objective Assessments Start: 09/04/21 14:48 Freq: Status: Active Protocol: Document 09/04/21 14:49 [facility] (Rec: 09/04/21 15:08 [facility] [id number]) OT Gross Range of Motion Upper Extremity Range of Motion Assessment Within Functional Limits OT Strength Upper Extremity Strength Assessment Within Functional Limits OT-Muscle Tone Assessment Muscle Tone WNL Yes M9 OT- IP Assessment and Plan Start: 09/04/21 14:48 Freq: Status: Active Protocol: Document 09/05/21 09:46 [facility] (Rec: 09/05/21 09:55 [facility] [id number]) OT Summary Assessment and Plan Potential Rehabilitation Potential Good Analytic Complexity at Evaluation Moderate Summary OT Impairments Strength,Balance,Functional Mobility,Dressing,Toileting, Bathing,Toilet Transfers, Shower Transfers,Activity Tolerance Progress Towards Goals Progressing Toward Goals Assessment Summary Pt able to sponge off today and initiated LB equipment use for needs. Pt also able to do transfer today with FWW MODA X2. Pt looking to go to skilled rehab today. Goals Dressing Goal Independent Toileting Goal Independent Bathing Goal Independent Toilet Transfer Goal Independent Shower Transfer Goal Independent Patient/Caregiver Education Goal Caregiver Independent Assisting Patient Days to Meet Goals 25 Frequency of Treatment Frequency Of Treatment Once a Day Treatment Plan OT Treatment Plan ADL Training,Functional Mobility,Patient/Family Education,Discharge Planning Discharge Recommendations OT Discharge Recommendations SNF Rehab Transportation Needs at Discharge Wheelchair/Cabulance
--- NOTE | 2021-09-05 10:50 | CM.DPNOTE ---
DC Note January/[facility] has secured SNF auth through [employer]. Bed ready for patient today Reviewed w/patient who remains agreeable to plan. Reviewed w/Dr Clements who agrees to complete necessary DC sunshine Kaur CMA, has kindly agreed to complete further coordination for this DCP Plan: DC to [facility] H+R via w/c today, COVID PCR updated, PASRR completed JW
--- NOTE | 2021-09-05 11:18 | PC.NURSE ---
Addendum entered by Karen Broussard R.N. 09/05/21 13:43: Patient discharged to [facility], report called to rn Original Note: Patient is feeling better today, [facility]. Patient is a 2 person assist from chair to bed. Splint and rosalio wrap dressing cdi to left leg. Will medicate patient with oxycodone for the ride over.
[2021-09-05 11:40] LABS: COVID19 -Nasal RAPID Negative (Negative)
== END 2021-09-05 13:43 ==
LOC: ED 12:57 → AC 14:13
PROVIDERS: Admitting Provider Internal Medicine; Emergency Provider Emergency Medicine; PCP Student in an Organized Health Care Education/Training Program; Referring Provider Emergency Medicine; Visit Provider Internal Medicine
DX: S92.342A Displaced fracture of fourth metatarsal bone, left foot, initial encounter for closed fracture (principal); S92.322A Displaced fracture of second metatarsal bone, left foot, initial encounter for closed fracture; S92.222A Displaced fracture of lateral cuneiform of left foot, initial encounter for closed fracture; S92.212A Displaced fracture of cuboid bone of left foot, initial encounter for closed fracture; W01.0XXA Fall on same level from slipping, tripping and stumbling without subsequent striking against object, initial encounter; Y93.89 Activity, other specified; Y92.89 Other specified places as the place of occurrence of the external cause; E11.40 Type 2 diabetes mellitus with diabetic neuropathy, unspecified; Z79.84 Long term (current) use of oral hypoglycemic drugs; I10 Essential (primary) hypertension; N40.0 Benign prostatic hyperplasia without lower urinary tract symptoms; Z20.822 Contact with and (suspected) exposure to COVID-19
CPT/HCPCS: 29515; 36415; 73610; 73630; 73700; 80053; 81015; 82962; 85025; 87086; 87635; 94760; 96372; 96374; 97110; 97162; 97166; 97530; 97535; 99284; C9803; G0378; J1650; J1815; J1885

== ENCOUNTER → 2021-10-21 12:22 | Outpatient (CLI) | payer OTHER, SELFPAY ==
[2021-09-03 16:02] VITALS: BMI 33.8
--- NOTE | 2021-10-21 | DI.US.S_ITS ---
PROCEDURE: US PERIPH VENOUS LOW EXTREM LT INDICATIONS: Rule out Deep Vein Thrombosis; left leg swelling TECHNIQUE: Real-time imaging, as well as color and pulse Doppler interrogation, were performed of the lower extremity deep veins from the inguinal ligament to the popliteal fossa. COMPARISON: None. FINDINGS: The common femoral, femoral and popliteal veins are normally compressible, and free of intraluminal thrombus. Color and pulse Doppler demonstrate normal phasic intraluminal flow. There is normal augmentation response to distal compression maneuver. IMPRESSION: No evidence of DVT. Dictated by: Nazario Nicolas M.D. on 10/21/2021 at 13:47 Approved by: Nazario Nicolas M.D. on 10/21/2021 at 13:48
== END ==
PROVIDERS: PCP Student in an Organized Health Care Education/Training Program; Referring Provider Internal Medicine; Visit Provider Internal Medicine
DX: M79.89 Other specified soft tissue disorders (principal)
CPT/HCPCS: 93971

== ENCOUNTER 2022-03-08 11:36 | Emergency (ER) | payer OTHER, SELFPAY ==
[2021-09-03 16:02] VITALS: BMI 33.8
[2022-03-08 11:49] VITALS: BP 183/74; PULSE 72; RESP 20; TEMP 36.9; O2SAT 94; BMI 33.5
--- NOTE | 2022-03-08 12:00 | DI.RAD.S_ITS ---
PROCEDURE: XR ANKLE RT MIN 3V INDICATIONS: fall TECHNIQUE: 43 views of the ankle were acquired. COMPARISON: [facility], CR, XR FOOT RT MIN 3V, 03/08/2022, 12:08. [facility], CR, XR ANKLE LT MIN 3V, 09/03/2021, 10:16. FINDINGS: Bones: No fractures or dislocations. Ankle mortise is normally aligned. No suspicious bony lesions. The talar dome demonstrates no mayito abnormality. Age-appropriate bony degenerative changes are seen. Incidental note is made of an enthesophyte at the Achilles insertion. Soft tissues: Generalized soft tissue swelling is seen. IMPRESSION: Soft tissue swelling is seen, without an acute bony abnormality seen by plain film. If there is point tenderness (or other clinical suspicion for a fracture not seen on these images) then a dedicated CT or a short-term followup plain film series could be considered for further evaluation, as clinically appropriate. Dictated by: Tanvir Burgos M.D. on 03/08/2022 at 11:27 Approved by: Tanvir Burgos M.D. on 03/08/2022 at 11:28
--- NOTE | 2022-03-08 12:10 | DI.RAD.S_ITS ---
PROCEDURE: XR FOOT RT MIN 3V INDICATIONS: toe pain TECHNIQUE: 3 views of the foot were acquired. COMPARISON: [facility], CR, XR ANKLE RT MIN 3V, 03/08/2022, 11:59. [facility], CR, XR FOOT LT MIN 3V, 09/03/2021, 10:16. FINDINGS: Bones: There is a mildly displaced fracture seen involving the proximal aspect of the proximal phalanx of the 5th toe, with intra-articular involvement. No definite additional fractures or dislocations. No suspicious bony lesions. Incidental note is made of an enthesophyte at the Achilles insertion. Age-appropriate bony degenerative changes are seen. Toe alignment abnormalities are seen. Soft tissues: Soft tissue swelling is seen, including involving the distal foot. IMPRESSION: Proximal 5th toe fracture. Generalized soft tissue swelling is seen, including involving the distal foot. Dictated by: Tanvir Burgos M.D. on 03/08/2022 at 11:28 Approved by: Tanvir Burgos M.D. on 03/08/2022 at 11:30
[2022-03-08 12:30] VITALS: BP 156/67; PULSE 63; RESP 20; O2SAT 95
--- NOTE | 2022-03-08 13:08 | ED.FALL ---
HPI - Fall General Chief Complaint: Fall Stated Complaint: Fell poss broken foot Time Seen by Provider: 03/08/22 12:08 Source: patient Mode of arrival: Wheelchair History of Present Illness HPI Narrative: 82-year-old male, some day smoker, presents to the emergency department with complaints of right foot pain after falling earlier today. Patient states he tripped and twisted his foot and now has pain along the outside his right foot with mild bruising and swelling to the 5th proximal phalange. Patient denies hitting his head or any loss of consciousness. Abrasions noted to right elbow, right chin and right foot. Patient able to bear weight with minimal discomfort. Related Data Home Medications Medication Instructions Recorded Confirmed calcium carbonate 600 mg calcium 600 mg PO DAILY 02/23/20 09/03/21 (1,500 mg) tablet (Calcium) cholecalciferol (vitamin D3) 50 50 mcg PO DAILY 02/23/20 09/03/21 mcg (2,000 unit) capsule (Vitamin D3) lisinopril 20 mg tablet 20 mg PO QPM 02/23/20 09/03/21 metformin 500 mg tablet 500 mg PO BID 02/23/20 09/03/21 multivitamin 1 tab PO DAILY 02/23/20 09/03/21 saw palmetto 160 mg capsule 330 mg PO DAILY 02/23/20 09/03/21 simvastatin 40 mg tablet 40 mg PO BEDTIME 02/23/20 09/03/21 terazosin 10 mg capsule 10 mg PO QPM 02/23/20 09/03/21 vitamin B complex 1 tab PO DAILY 02/23/20 09/03/21 albuterol sulfate 90 mcg/actuation 2 puff inhalation Q4-6H PRN 07/09/20 09/03/21 aerosol inhaler (Ventolin HFA) Adequate Ventilation Previous Rx's Medication Instructions Recorded celecoxib 200 mg capsule (Celebrex) 200 mg PO DAILY #30 caps 07/09/20 docusate sodium 100 mg capsule 100 mg PO BID #10 caps 09/05/21 oxycodone 5 mg tablet 5 mg PO Q6HR PRN Pain, Moderate 09/05/21 (4-6) #5 tabs polyethylene glycol 3350 17 gram 17 g PO DAILY #10 ea 09/05/21 oral powder packet (Miralax) Allergies Allergy/AdvReac Type Severity Reaction Status Date / Time No Known Drug Allergies Allergy Verified 03/08/22 11:52 Review of Systems Review of Systems Narrative: Narrative: GENERAL: Denies chills, fatigue, fever, sweats. See HPI HEENT: Denies sinus pain, ear pain, sore throat, difficulty swallowing, dizziness. RESPIRATORY: Denies dyspnea, cough, wheezing, sputum. CARDIOVASCULAR: Denies chest pain, palpitations, edema. GASTROINTESTINAL: Denies nausea, vomiting, abdominal pain, diarrhea, constipation. : Denies dysuria, frequency, incontinence, hematuria, urinary retention, flank pain. MSK: Denies weakness, joint pain, or bony pain. SKIN: Superficial abrasions noted to right elbow, right helm had right foot. NEUROLOGIC: Denies weakness, dizziness, headache, numbness, confusion. PSYCHIATRIC: No concerning psychosocial issues. 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 Smoking Status: Current some day smoker alcohol intake: current Smoking Status: Current some day smoker tobacco type: pipe alcohol intake frequency: 3 or more drinks per day Alcohol type: wine and hard liquor Substance Use Type: does not use Exam Narrative Exam Narrative: Exam Narrative: GENERAL: This is a well-nourished, well-developed patient, in no acute distress HEAD: Atraumatic. Normocephalic. EYES: Pupils equal round and reactive. Extraocular motions intact. No scleral icterus, injection or drainage. MSK: Moves all extremities. Normal range of motion. Neurovascularly intact. NEURO: A&O x 3. SKIN: Superficial abrasions noted to right elbow, her right chin and right foot. Mild bruising noted to right foot 5th digit. Initial Vital Signs Initial Vital Signs: Vital Signs Temperature 98.4 F 03/08/22 11:49 Pulse Rate 72 03/08/22 11:49 Respiratory Rate 20 03/08/22 11:49 Blood Pressure 183/74 H 03/08/22 11:49 Pulse Oximetry 94 03/08/22 11:49 Oxygen Delivery Method 03/08/22 11:49 Reviewed Extrem Other: FOOT: There is mild bruising and swelling but no asymmetry. There is no tenderness to general palpation. Sensation grossly intact. There is no tenderness over the mid-foot, metatarsals or arch. There is no tenderness over the medial or lateral malleolus, proximal tibia or fibula. The ankle flexion and extension is intact. Toes range of motion intact. The contralateral foot exam is unremarkable. Positive pedal pulse. Procedures Orthopedic Splinting/Casting Injury #1: Side: right Other Orthopedic Equipment: other (shoe) Post splinting neuro exam: intact Post splinting vascular exam: intact Placed by: Nursing Course Orders Ordered: Discontinued Medications Oxycodone/Acetaminophen (Oxycodone/Acetaminophen 5/325 Tablet) 1 tab PO NOW ONE Stop: 03/08/22 13:47 Last Admin: 03/08/22 13:55 Dose: 1 tab Documented By: KF Vital Signs Vital signs: Vital Signs - 8 hr 03/08/22 11:49 03/08/22 12:30 Temperature 98.4 F Pulse Rate 72 63 Respiratory Rate 20 20 Blood Pressure 183/74 H 156/67 H Pulse Oximetry 94 95 Oxygen Delivery Method Room Air Room Air MDM - Fall Differential Diagnosis Differential diagnosis: Likely other (Foot fracture) Imaging Data Extremity x-ray #1: Radiologist's Impression: [address] [id number] ReportSigned Patient: Carlo Holly [facility]#: [id number]: 1940cct:[id number]/Sex: 82 / MDate of Service: 03/08/22Loc: EDAccession Number: [id number] Procedure: XR foot RT min 3V Ordering Provider: Jeannine Renae D.O. PROCEDURE: XR FOOT RT MIN 3V INDICATIONS: toe pain TECHNIQUE: 3 views of the foot were acquired. COMPARISON: [facility], CR, XR ANKLE RT MIN 3V, 03/08/2022, 11:59. [facility], CR, XR FOOT LT MIN 3V, 09/03/2021, 10:16. FINDINGS: Bones: There is a mildly displaced fracture seen involving the proximal aspect of the proximal phalanx of the 5th toe, with intra-articular involvement. No definite additional fractures or dislocations. No suspicious bony lesions. Incidental note is made of an enthesophyte at the Achilles insertion. Age-appropriate bony degenerative changes are seen. Toe alignment abnormalities are seen. Soft tissues: Soft tissue swelling is seen, including involving the distal foot. IMPRESSION: Proximal 5th toe fracture. Generalized soft tissue swelling is seen, including involving the distal foot. Dictated by: Tanvir Burgos M.D. on 03/08/2022 at 11:28 Approved by: Tanvir Burgos M.D. on 03/08/2022 at 11:30 Extremity x-ray #2: Radiologist's Impression: [place] [address] XRay Report Signed Patient: Carlo Holly MR#: [id number] : 1940 Acct:[id number] Age/Sex: 82 / M Date of Service: 03/08/22 Loc: Accession Number: [id number] ?? Procedure: XR ankle RT min 3V Ordering Provider: Jeannine Renae D.O. PROCEDURE:? XR ANKLE RT MIN 3V ? INDICATIONS:? fall ? TECHNIQUE:? 43 views of the ankle were acquired.? ? COMPARISON:? [facility], CR, XR FOOT RT MIN 3V, 03/08/2022, 12:08.? [facility], CR, XR ANKLE LT MIN 3V, 09/03/2021, 10:16. ? FINDINGS:? ? Bones:? No fractures or dislocations.? Ankle mortise is normally aligned.? No suspicious bony lesions.? The talar dome demonstrates no mayito abnormality.? Age-appropriate bony degenerative changes are seen.? Incidental note is made of an enthesophyte at the Achilles insertion.? ? Soft tissues:? Generalized soft tissue swelling is seen. ? ? IMPRESSION:? Soft tissue swelling is seen, without an acute bony abnormality seen by plain film. ? If there is point tenderness (or other clinical suspicion for a fracture not seen on these images) then a dedicated CT or a short-term followup plain film series could be considered for further evaluation, as clinically appropriate. ? Dictated by: Tanvir Burgos M.D. on 03/08/2022 at 11:27 ? ? Approved by: Tanvir Burgos M.D. on 03/08/2022 at 11:28 ? MDM Narrative Medical decision making narrative: 82-year-old male with a mildly displaced fracture of right foot 5th proximal phalange with no obvious deformity. Will treat with a ortho shoe and discussed omid taping and rice. Abrasions on right elbow, right chin and right foot were cleansed by nursing staff. Discussed plan of care and discharge instructions with patient, who was agreeable with course of action. Discharge Plan Departure Patient Disposition: Home Clinical Impression: Foot fracture, right Activity Restrictions/Additional Instructions: *You have been diagnosed with a right pinky toe fracture. As we discussed, treatment for this includes NSAIDs and rice. Rest (modified activity), along with ice, compression wrap/splint-immobilize as directed and elevation above heart. Tylenol or Ibuprofen for discomfort. You may use ibuprofen 600 mg by mouth 3 times a day with food for the next 3 days to help with the swelling. For any worsening symptoms, numbness or tingling or inability to bear weight, please follow-up with your family doctor or return to the emergency department. *What to do: *Please continue to take your regular medications as directed. [ ] New medication prescriptions sent to your pharmacy: [ ] [ ] New medication written as a paper prescription [X] No new medications given *Please follow up with your primary care provider in 2-3 days, call for an appointment. Let them know you were seen in the Emergency Department and that we ask that you be seen in follow up. We will electronically transmit a record of today's note if your PCP is in our system *If you do not have a primary care provider please contact the [facility] Resource line at [phone]. They will ask some questions about your medical history and help get you set up with a doctor in the community. ? Return to ER if you should have any new, worsening or concerning symptoms, such as worsening pain, severe headache, confusion, chest pain, difficulty breathing, fever greater than 101 F, shaking chills, persistent vomiting to the point that you cannot drink fluids, or other new or worsening symptoms. Prescriptions: No Action metformin 500 mg Tablet 500 mg PO BID terazosin 10 mg Capsule 10 mg PO QPM multivitamin Tablet 1 tab PO DAILY lisinopril 20 mg Tablet 20 mg PO QPM simvastatin 40 mg Tablet 40 mg PO BEDTIME calcium carbonate [Calcium 600] 600 mg calcium (1,500 mg) Tablet 600 mg PO DAILY saw palmetto 160 mg Capsule 330 mg PO DAILY vitamin B complex Tablet 1 tab PO DAILY cholecalciferol (vitamin D3) [Vitamin D3] 50 mcg (2,000 unit) Capsule 50 mcg PO DAILY docusate sodium 100 mg Capsule 100 mg PO BID Qty: 10 0RF oxycodone 5 mg Tablet 5 mg PO Q6HR PRN (Reason: Pain, Moderate (4-6)) Qty: 5 0RF polyethylene glycol 3350 [Miralax] 17 gram powder in packet 17 g PO DAILY Qty: 10 0RF albuterol sulfate [Ventolin HFA] 90 mcg/actuation HFA aerosol inhaler 2 puff inhalation Q4-6H PRN (Reason: Adequate Ventilation) Label Comments: used a month ago celecoxib [Celebrex] 200 mg capsule 200 mg PO DAILY Qty: 30 2RF Referrals: Sakina Rae PA-C [Primary Care Provider] - Visit Report Forms: Patient Portal/API
[2022-03-08] MEDS: OXYCODONE/ACETAMINOPHEN 5/325 TABLET 1 TAB PO (13:55)
[2022-03-08 13:59] VITALS: BP 179/89; PULSE 82; RESP 16; O2SAT 97
== END 2022-03-08 14:02 | disposition home or self-care (01) ==
PROVIDERS: Emergency Provider Registered Nurse; PCP Student in an Organized Health Care Education/Training Program
DX: S92.511A Displaced fracture of proximal phalanx of right lesser toe(s), initial encounter for closed fracture (principal); W19.XXXA Unspecified fall, initial encounter
CPT/HCPCS: 73610; 73630; 99283

== ENCOUNTER 2022-04-05 11:46 | Emergency (ER) | payer OTHER, SELFPAY ==
[2021-09-03 16:02] VITALS: BMI 33.8
[2022-04-05] VITALS (13 sets, daily range): BP systolic 155–216; BP diastolic 68–85; PULSE 65–72; RESP 19–41; TEMP 36.4; O2SAT 93–96; BMI 33.2
--- NOTE | 2022-04-05 12:02 | DI.CT.S_ITS ---
PROCEDURE: CT HEAD/BRAIN WO CON INDICATIONS: weakness TECHNIQUE: Noncontrast 4.5 mm thick angled axial sections acquired from the foramen magnum to the vertex, with coronal and sagittal reformats. For radiation dose reduction, the following was used: automated exposure control, adjustment of mA and/or kV according to patient size. COMPARISON: None. FINDINGS: Image quality: Excellent. CSF spaces: The ventricles are symmetric in size and shape. Brain: There is a prominent subacute appearing right-sided subdural hematoma seen, with a maximum thickness of approximately 2.1 cm. There is significant midline shift 1.5 cm. There is mild subfalcine herniation. The basal cisterns remain patent. No intracranial masses. There is cerebral volume loss for age, with resultant ventricular and sulcal prominence. There are periventricular and deep white matter chronic small vessel ischemic changes. There is intracranial internal carotid artery atherosclerosis. Skull and face: Calvarium and visualized facial bones appear intact, without suspicious lesions. Sinuses: Visualized sinuses and mastoids are clear. IMPRESSION: There is a subacute appearing right-sided subdural hemorrhage seen, which measures up to 2.1 cm in thickness. There is significant associated midline shift, measuring 1.5 cm. Early subfalcine herniation is seen. The basal cisterns remain patent. No hydrocephalus is seen at this time. Urgent neurosurgical consultation is recommended. Note: Findings and recommendations discussed by telephone with Dr. Renae at 12:07 p.m. [place] time on April 05, 2022. Dictated by: Tanvir Burgos M.D. on 04/05/2022 at 12:03 Approved by: Tanvir Burgos M.D. on 04/05/2022 at 12:08
[2022-04-05 12:48] LABS: COVID19 -Nasal RAPID Negative (Negative)
[2022-04-05 12:50] LABS: Add Manual Diff / Slide Review NO; Basophils Absolute Auto 0 /uL (0-100); Basophils Percent Auto 0.9 % (0-2); Eosinophils Absolute Auto 200 /uL (0-450); Eosinophils Percent Auto 3.5 % (2-4); Hematocrit 37.3 % (41-53); Hemoglobin 12.9 g/dL (13.5-17.5); Lymphocytes Absolute Auto 1000 /uL (1100-4500); Mean Corpuscular HGB Conc 34.5 % (30-36); Mean Corpuscular Hemoglobin 31.8 PG (26-34); Mean Corpuscular Volume 92.2 fL (80-100); Monocytes Absolute Auto 400 /uL (0-900); Monocytes Percent Auto 7.2 % (3-14); Neutrophils Absolute Auto 3700 /uL (1500-7000); Neutrophils Percent Auto 69.4 % (50-75); Platelet Count 172 X10^3/uL (150-400); Red Blood Cell Count 4.04 X10^6/uL (4.5-5.9); Red Cell Distribution Width 14.2 % (11.6-14.8); White Blood Cell Count 5.3 X10^3/uL (4.5-11.0)
[2022-04-05 13:04] LABS: Alanine Aminotransferase 16 IU/L (<50); Albumin 3.7 g/dL (3.5-5.0); Albumin Globulin Ratio 1.2 (1.0-2.8); Alkaline Phosphatase 59 U/L (38-126); Aspartate Aminotransferase 19 IU/L (17-59); BUN Creatinine Ratio 32.9 (6-22); Bilirubin Total 0.4 mg/dL (0.2-1.3); Blood Urea Nitrogen 26 mg/dL (9-20); Calcium 8.8 mg/dL (8.4-10.2); Carbon Dioxide 32 mmol/L (22-32); Chloride 101 mmol/L (98-107); Creatine Kinase 34 U/L (55-170); Estimated Glomerular Filt Rate > 60 mL/min (>60); Globulin 3.1 g/dL (1.7-4.1); Glucose 223 mg/dL (80-110); HEMOLYSIS < 15 (0-50); Lipase 341 U/L (23-300); Potassium 4.7 mmol/L (3.4-5.1); Sodium 136 mmol/L (137-145); Total Protein 6.8 g/dL (6.3-8.2)
--- NOTE | 2022-04-05 13:11 | ED.WEAKNESS ---
HPI - Weakness General Chief complaint: Weakness Stated complaint: UNSTEADY ON FEET; HEADACHE Time Seen by Provider: 04/05/22 12:02 Source: patient Mode of arrival: Ambulatory Limitations: no limitations History of Present Illness HPI Narrative: This is a pleasant 82-year-old male with history of diabetes, dyslipidemia hypertension who presents with complaint of 7-10 days of increasing weakness particularly in lower extremities, unsteady gait and shuffling gait with a headache that has been present for the past 3 or 4 days, patient states he had a fall 4 weeks he states he fell forward he does not recall hitting his head. Patient states he does not recall any falls or head injury since then. Patient denies any vision changes, no chest pain or shortness of breath, no nausea or vomiting he has some chronic loose stools but no black or bloody stools. Patient has some nocturia but no dysuria urgency or frequency. He describes some bilateral weakness in lower extremities but no lateralizing weakness. Patient states he sort of leaning to the right. No issues with speech. Patient describes a shuffling gait. Patient has also been falling asleep a little bit easier. He is not on any anticoagulation or aspirin. Patient denies any prior surgeries. No known drug allergies. Patient uses a pipe daily but no other tobacco, 1-3 alcoholic drinks daily which he states usually 1 hard liquor drink followed by 2 or 3 glasses of wine. No illicit drugs. Primary care is Sakina Rae, does not follow with any other specialty physicians. Related Data Home Medications Medication Instructions Recorded Confirmed calcium carbonate 600 mg calcium 600 mg PO DAILY 02/23/20 09/03/21 (1,500 mg) tablet (Calcium) cholecalciferol (vitamin D3) 50 50 mcg PO DAILY 02/23/20 09/03/21 mcg (2,000 unit) capsule (Vitamin D3) lisinopril 20 mg tablet 20 mg PO QPM 02/23/20 09/03/21 metformin 500 mg tablet 500 mg PO BID 02/23/20 09/03/21 multivitamin 1 tab PO DAILY 02/23/20 09/03/21 saw palmetto 160 mg capsule 330 mg PO DAILY 02/23/20 09/03/21 simvastatin 40 mg tablet 40 mg PO BEDTIME 02/23/20 09/03/21 terazosin 10 mg capsule 10 mg PO QPM 02/23/20 09/03/21 vitamin B complex 1 tab PO DAILY 02/23/20 09/03/21 albuterol sulfate 90 mcg/actuation 2 puff inhalation Q4-6H PRN 07/09/20 09/03/21 aerosol inhaler (Ventolin HFA) Adequate Ventilation Previous Rx's Medication Instructions Recorded celecoxib 200 mg capsule (Celebrex) 200 mg PO DAILY #30 caps 07/09/20 docusate sodium 100 mg capsule 100 mg PO BID #10 caps 09/05/21 oxycodone 5 mg tablet 5 mg PO Q6HR PRN Pain, Moderate 09/05/21 (4-6) #5 tabs polyethylene glycol 3350 17 gram 17 g PO DAILY #10 ea 09/05/21 oral powder packet (Miralax) Allergies Allergy/AdvReac Type Severity Reaction Status Date / Time No Known Drug Allergies Allergy Verified 04/05/22 12:00 Review of Systems Review of Systems ROS Unobtainable: All systems reviewed & are unremarkable except as noted in HPI and below Patient History Medical History Arthritis Cancer Cough Diabetes Diabetes Enlarged prostate Facet arthropathy, lumbar Hand pain History of falling History of melanoma Hypertension Impairment of balance Lumbar radiculopathy Scoliosis due to degenerative disease of spine in adult patient Sensory peripheral neuropathy Urinary frequency Surgical History History of appendectomy History of tonsillectomy Family History Father Heart disease Social History household members: family lives independently: Yes caregiver/support person: Yes (Adult daughter) occupational status: previously employed other: Lives in 1 story home with ramp from garage. Smoking Status: Current some day smoker alcohol intake: current Smoking Status: Current some day smoker tobacco type: pipe alcohol intake frequency: 3 or more drinks per day Alcohol type: wine and hard liquor Substance Use Type: does not use Exam Narrative Exam Narrative: GEN: well nourished, well appearing male, alert and oriented x 3, patient appears to be in mild distress. HEENT: Atraumatic, pupils are equal round reactive to light, extraocular movements are intact, nares are clear, TMs are clear with no fluid, there is no conjunctival pallor. Throat is clear without any exudates, erythema, tonsillar enlargement or uvular deviation, no facial droop. HEART: Regular rate and rhythm without murmur, clicks, rubs. Pulses are equal in upper and lower extremities LUNGS:Lungs clear to auscultation, no wheezes, rales, crackles, chest moves symmetrically ABD:bowel sounds normal, soft, non-tender, no guarding, rebound, rigidity, no masses noted, no hepatosplenomegaly :No CVA tenderness MSCL: Non-tender, no muscle atrophy, muscles strength 5/5 upper and lower extremities, full range of motion, shuffling gait. NEURO:CN 2-12 intact, sensation normal, reflexes 2/4 upper and lower extremities. finger nose finger test normal, heel helm test normal Initial Vital Signs Initial Vital Signs: Vital Signs Pulse Rate 72 04/05/22 11:57 Pulse Oximetry 96 04/05/22 11:57 Scores GCS [place] coma scale eye opening: Spontaneous [place] coma scale verbal response: Orientated [place] coma scale motor response: Obey commands [place] coma scale total score: 15 Course Orders Ordered: ED Orders 04/05/22 12:00 COVID19 -Nasal RAPID/Pre-Proc Stat 04/05/22 12:02 CT head/brain wo con Stat 04/05/22 12:34 CBC Auto Diff [Complete Blood Count AUTO DIFF] Stat CMP [Comprehensive Metabolic Panel] Stat Lipase Stat PTT [Partial Thromboplastin Time] Stat Prothrombin Time INR Stat Troponin & CK Cardiac Panel Stat 04/05/22 13:35 Urine Microscopic Stat Discontinued Medications Acetaminophen (Acetaminophen 325 Mg Tablet) 975 mg PO NOW ONE Stop: 04/05/22 13:55 Last Admin: 04/05/22 14:23 Dose: 975 mg Documented By: BENI Morphine Sulfate (Morphine 4 Mg/Ml Inj) 4 mg IV NOW ONE Stop: 04/05/22 15:04 Last Admin: 04/05/22 15:06 Dose: 4 mg Documented By: BENI Consultations Consultation #1: [facility], neurosurgery, Dr. Perez accepts for transfer. Time: 14:00 Vital Signs Vital signs: Vital Signs - 8 hr 04/05/22 12:00 04/05/22 11:57 04/05/22 12:00 Temperature 97.6 F Pulse Rate 72 72 67 Respiratory Rate 20 Blood Pressure 216/85 H Pulse Oximetry 93 96 96 Oxygen Delivery Method Room Air 04/05/22 12:01 04/05/22 12:01 04/05/22 12:30 Temperature Pulse Rate 67 66 Respiratory Rate Blood Pressure 178/75 H Pulse Oximetry 96 96 Oxygen Delivery Method 04/05/22 13:29 04/05/22 13:30 04/05/22 13:31 Temperature Pulse Rate 67 68 68 Respiratory Rate Blood Pressure Pulse Oximetry 96 95 95 Oxygen Delivery Method 04/05/22 13:31 04/05/22 14:00 04/05/22 14:01 Temperature Pulse Rate 65 Respiratory Rate 22 Blood Pressure 210/81 H 185/75 H Pulse Oximetry 94 Oxygen Delivery Method 04/05/22 14:01 04/05/22 14:27 04/05/22 14:27 Temperature Pulse Rate 69 67 Respiratory Rate 24 25 H Blood Pressure 155/68 H Pulse Oximetry 94 95 Oxygen Delivery Method 04/05/22 14:30 04/05/22 14:31 04/05/22 14:31 Temperature Pulse Rate 66 66 Respiratory Rate 19 22 Blood Pressure 171/74 H Pulse Oximetry 94 93 Oxygen Delivery Method 04/05/22 15:00 Temperature Pulse Rate 70 Respiratory Rate 41 H Blood Pressure Pulse Oximetry Oxygen Delivery Method MDM - Weakness Lab Data Result diagrams: 04/05/22 12:34 04/05/22 12:34 Labs: Lab Results 04/05/22 04/05/22 04/05/22 Range/Units 12:00 12:34 12:34 WBC 5.3 (4.5-11.0) X10^3/uL RBC 4.04 L (4.5-5.9) X10^6/uL Hgb 12.9 L (13.5-17.5) g/dL Hct 37.3 L (41-53) % MCV 92.2 (80-100) fL MCH 31.8 (26-34) PG MCHC 34.5 (30-36) % RDW 14.2 (11.6-14.8) % Plt Count 172 (150-400) X10^3/uL Neut % (Auto) 69.4 (50-75) % Lymph % (Auto) 19.0 L (25-40) % [place] % (Auto) 7.2 (3-14) % Eos % (Auto) 3.5 (2-4) % Baso % (Auto) 0.9 (0-2) % Neut # (Auto) 3700 (0518-4257) /uL Lymph # (Auto) 1000 L (9370-8970) /uL [place] # (Auto) 400 (0-900) /uL Eos # (Auto) 200 (0-450) /uL Baso # (Auto) 0 (0-100) /uL PT (10.1-12.7) SECONDS INR (0.9-1.3) APTT (26-36) SECONDS Sodium 136 L (137-145) mmol/L Potassium 4.7 (3.4-5.1) mmol/L Chloride 101 (98-107) mmol/L Carbon Dioxide 32 (22-32) mmol/L BUN 26 H (9-20) mg/dL Creatinine 0.79 (0.66-1.25) mg/dL Estimated GFR > 60 (>60) mL/min BUN/Creatinine Ratio 32.9 H (6-22) Glucose 223 H (80-110) mg/dL Calcium 8.8 (8.4-10.2) mg/dL Total Bilirubin 0.4 (0.2-1.3) mg/dL AST 19 (17-59) IU/L ALT 16 (<50) IU/L Alkaline Phosphatase 59 (38-126) U/L Total Creatine Kinase 34 L (55-170) U/L CK-MB (CK-2) TNP CK-MB (CK-2) Rel Index TNP Troponin I < 0.012 (0.01-0.034) ng/mL Total Protein 6.8 (6.3-8.2) g/dL Albumin 3.7 (3.5-5.0) g/dL Globulin 3.1 (1.7-4.1) g/dL Albumin/Globulin Ratio 1.2 (1.0-2.8) Lipase 341 H (23-300) U/L Urine RBC (0-5/HPF) Urine WBC (0-5/HPF) Ur Squamous Epith Cells (0-5/HPF) Urine Bacteria (None) Ur Culture Indicated? SARS-CoV-2 (PCR) Negative (Negative) 04/05/22 04/05/22 Range/Units 12:34 13:35 WBC (4.5-11.0) X10^3/uL RBC (4.5-5.9) X10^6/uL Hgb (13.5-17.5) g/dL Hct (41-53) % MCV (80-100) fL MCH (26-34) PG MCHC (30-36) % RDW (11.6-14.8) % Plt Count (150-400) X10^3/uL Neut % (Auto) (50-75) % Lymph % (Auto) (25-40) % [place] % (Auto) (3-14) % Eos % (Auto) (2-4) % Baso % (Auto) (0-2) % Neut # (Auto) (7297-0119) /uL Lymph # (Auto) (5690-8258) /uL [place] # (Auto) (0-900) /uL Eos # (Auto) (0-450) /uL Baso # (Auto) (0-100) /uL PT 11.2 (10.1-12.7) SECONDS INR 1.0 (0.9-1.3) APTT 30 (26-36) SECONDS Sodium (137-145) mmol/L Potassium (3.4-5.1) mmol/L Chloride (98-107) mmol/L Carbon Dioxide (22-32) mmol/L BUN (9-20) mg/dL Creatinine (0.66-1.25) mg/dL Estimated GFR (>60) mL/min BUN/Creatinine Ratio (6-22) Glucose (80-110) mg/dL Calcium (8.4-10.2) mg/dL Total Bilirubin (0.2-1.3) mg/dL AST (17-59) IU/L ALT (<50) IU/L Alkaline Phosphatase (38-126) U/L Total Creatine Kinase (55-170) U/L CK-MB (CK-2) CK-MB (CK-2) Rel Index Troponin I (0.01-0.034) ng/mL Total Protein (6.3-8.2) g/dL Albumin (3.5-5.0) g/dL Globulin (1.7-4.1) g/dL Albumin/Globulin Ratio (1.0-2.8) Lipase (23-300) U/L Urine RBC 1-5/hpf D (0-5/HPF) Urine WBC 0-1/hpf (0-5/HPF) Ur Squamous Epith Cells 0-1 /hpf (0-5/HPF) Urine Bacteria None seen (None) Ur Culture Indicated? Cult not indicated SARS-CoV-2 (PCR) (Negative) Urine Dip Bedside Urine Glucose 1000 mg/dl Bedside Urine Bilirubin - Negative Bedside Urine Ketone - Negative Urine Specific Leon 1.025 Bedside Urine Occult Blood ++ Bedside Urine pH 6.0 Bedside Urine Protein - Negative Bedside Urine Urobilinogen - Negative Bedside Urine Nitrite - Negative Bedside Urine Leukocytes - Negative Esterase Imaging Data CT scan - head: Radiologist Impression: Close Head CT (Signed) Tanvir Burgos - 04/05/22 Foot X-Ray (Signed) Tanvir Burgos - 03/08/22 Ankle X-Ray (Signed) Tanvir Burgos - 03/08/22 Vascular Ultrasound (Signed) Nazario Nicolas - 10/21/[address] (Signed) Alireza Palma - 09/03/21 Foot X-Ray (Signed) Vince Varma - 09/03/21 Ankle X-Ray (Signed) Vince Varma - 09/03/21 Chest X-Ray (Signed) Rufina Lanier - 02/21/21 Lumbar Spine MRI (Signed) Corie Ferguson - 05/18/20 Telemetry Strips 02/23/20 Lumbar Spine X-Ray (Signed) Fran Chapman - 10/13/19 Ankle X-Ray (Signed) Fran Chapman - 09/02/19 [place] [address] CT Scan Report Signed Patient: Carlo Holly MR#: [id number] : 1940 Acct:[id number] Age/Sex: 82 / M Date of Service: 04/05/22 Loc: ED Accession Number: [id number] ?? Procedure: CT head/brain wo con Ordering Provider: Jeannine Renae D.O. PROCEDURE:? CT HEAD/BRAIN WO CON ? INDICATIONS:? weakness ? TECHNIQUE:? Noncontrast 4.5 mm thick angled axial sections acquired from the foramen magnum to the vertex, with coronal and sagittal reformats.? For radiation dose reduction, the following was used:? automated exposure control, adjustment of mA and/or kV according to patient size.? ? COMPARISON:? None. ? FINDINGS:? Image quality:? Excellent.? ? CSF spaces:? The ventricles are symmetric in size and shape.? ? Brain:? There is a prominent subacute appearing right-sided subdural hematoma seen, with a maximum thickness of approximately 2.1 cm.? There is significant midline shift 1.5 cm. There is mild subfalcine herniation.? The basal cisterns remain patent. ? No intracranial masses.? There is cerebral volume loss for age, with resultant ventricular and sulcal prominence.? There are periventricular and deep white matter chronic small vessel ischemic changes.? There is intracranial internal carotid artery atherosclerosis.? ? Skull and face:? Calvarium and visualized facial bones appear intact, without suspicious lesions.? ? Sinuses:? Visualized sinuses and mastoids are clear.? ? ? IMPRESSION:? There is a subacute appearing right-sided subdural hemorrhage seen, which measures up to 2.1 cm in thickness.? There is significant associated midline shift, measuring 1.5 cm. ? Early subfalcine herniation is seen. ? The basal cisterns remain patent.? No hydrocephalus is seen at this time. ? Urgent neurosurgical consultation is recommended. ? ? ? Note: Findings and recommendations discussed by telephone with Dr. Renae at 12:07 p.m. [place] time on April 05, 2022.? Dictated by: Tanvir Burgos M.D. on 04/05/2022 at 12:03 ? ? Approved by: Tanvir Burgos M.D. on 04/05/2022 at 12:08?? ECG Data Attestation: I personally reviewed and interpreted this ECG as follows: Prior ECG tracings: not available for review Interpretation: Sinus rhythm first-degree AV block, rate of 70 MI 214 QRS of 168, QTC of 449. Left bundle-branch block. Left axis deviation. No prior available for comparison. MDM Narrative Medical decision making narrative: This is an 82-year-old male with complaint of headache, shuffling gait and weakness and falling asleep increasingly easily after ground level fall 4 weeks ago patient denies any head injury but is found to have a subdural hematoma today with midline shift, patient has been hypertensive, he is not anticoagulated, has history of hypertension dyslipidemia and diabetes but is otherwise independent and fairly healthy. Patient is open to intervention he is alert, appropriate here in the department. Patient was not started on 3% or mannitol in the department secondary to appropriate mentation and no acute neurologic decompensation. Head of the bed was placed at 30 degrees. Case was discussed with [facility] neurosurgery who accepts for transfer. ED to ED transfer for intervention. Critical Care Time Critical Care Time Critical Care Time: Yes Total Critical Care Time: 35 Attestation: The high probability of a clinically significant, sudden or life threatening deterioration of the [neurologic] system(s) required my full and direct attention, intervention and personal management. The aggregate critical care time was [] minutes. This time is in addition to time spent performing reported procedures but includes the following: [x] Data Review and interpretation [x] Patient assessment and monitoring of vital signs [x] Documentation [x] Medication orders and management Discharge Plan Departure Patient Disposition: [facility] Clinical Impression: Subdural hematoma Prescriptions: No Action metformin 500 mg Tablet 500 mg PO BID terazosin 10 mg Capsule 10 mg PO QPM multivitamin Tablet 1 tab PO DAILY lisinopril 20 mg Tablet 20 mg PO QPM simvastatin 40 mg Tablet 40 mg PO BEDTIME calcium carbonate [Calcium 600] 600 mg calcium (1,500 mg) Tablet 600 mg PO DAILY saw palmetto 160 mg Capsule 330 mg PO DAILY vitamin B complex Tablet 1 tab PO DAILY cholecalciferol (vitamin D3) [Vitamin D3] 50 mcg (2,000 unit) Capsule 50 mcg PO DAILY docusate sodium 100 mg Capsule 100 mg PO BID Qty: 10 0RF oxycodone 5 mg Tablet 5 mg PO Q6HR PRN (Reason: Pain, Moderate (4-6)) Qty: 5 0RF polyethylene glycol 3350 [Miralax] 17 gram powder in packet 17 g PO DAILY Qty: 10 0RF albuterol sulfate [Ventolin HFA] 90 mcg/actuation HFA aerosol inhaler 2 puff inhalation Q4-6H PRN (Reason: Adequate Ventilation) Label Comments: used a month ago celecoxib [Celebrex] 200 mg capsule 200 mg PO DAILY Qty: 30 2RF Referrals: Rae,Sakina N, PA-C [Primary Care Provider] -
[2022-04-05 13:14] LABS: Troponin I < 0.012 ng/mL (0.01-0.034)
[2022-04-05 13:16] LABS: Prothrombin Time 11.2 SECONDS (10.1-12.7)
[2022-04-05 13:19] LABS: PTT Partial Thromboplastin Tim 30 SECONDS (26-36)
[2022-04-05 14:15] LABS: Bacteria Urine None Seen; Culture Indicated Urine Cult Not Indicated; RBC Urine 1-5/HPF (0-5/HPF); Squamous Epithelial Cell Urine 0-1 /HPF (0-5/HPF); WBC Urine 0-1/HPF (0-5/HPF)
[2022-04-05] MEDS: ACETAMINOPHEN 325 MG TABLET 975 MG PO (14:23)
[2022-04-05] MEDS: MORPHINE 4 MG/ML INJ IV (15:06)
== END 2022-04-05 15:08 | disposition short-term general hospital (02) ==
PROVIDERS: Emergency Provider Emergency Medicine; PCP Student in an Organized Health Care Education/Training Program
DX: S06.5X0A Traumatic subdural hemorrhage without loss of consciousness, initial encounter (principal); R51.9 Headache, unspecified; I10 Essential (primary) hypertension; W18.30XA Fall on same level, unspecified, initial encounter; Z20.822 Contact with and (suspected) exposure to COVID-19
CPT/HCPCS: 36415; 70450; 80053; 81003; 81015; 82550; 83690; 84484; 85025; 85610; 85730; 87635; 93005; 96374; 99284; 99291; C9803; J2270

== ENCOUNTER 2022-04-25 19:06 | Observation (INO) | payer OTHER, SELFPAY ==
[2021-09-03 16:02] VITALS: BMI 33.8
[2022-04-25] VITALS (14 sets, daily range): BP systolic 118–145; BP diastolic 56–66; PULSE 72–90; RESP 16–30; TEMP 36.8–37.2; O2SAT 91–99; BMI 27.8
--- NOTE | 2022-04-25 19:10 | DI.CT.S_ITS ---
PROCEDURE: CT ANGIO HEAD AND NECK INDICATIONS: Possible stroke TECHNIQUE: After the administration of intravenous contrast, 1 mm thick sections acquired from the aortic arch through the [place]. Post-contrast 4.5 mm thick sections then re-acquired from the foramen magnum to the vertex. 3-dimensional auinhat-ldhvmjfly-fopjbbhmae (MIP) and/or volume rendering reformats were acquired of the central intracranial vasculature and neck separately. For radiation dose reduction, the following was used: automated exposure control, adjustment of mA and/or kV according to patient size. COMPARISON: [facility], CT, CT STROKE, 04/25/2022, 19:17. [facility], CT, CT HEAD/BRAIN WO CON, 04/05/2022, 12:54. FINDINGS: Image quality: Excellent. BRAIN: CSF spaces: Ventricles are normal in size and shape. Basal cisterns are patent. Decreased acute on chronic right subdural hematoma. Brain: Roughly 8 mm of leftward midline shift. [place]-white matter interface appears intact. Skull and face: Right frontal craniotomy. Calvarium and facial bones appear intact, without suspicious lesions. Orbits appear normal. Sinuses: Sinuses and mastoids are clear. HEAD CT ANGIOGRAPHY: Anterior circulation: There is mild atherosclerotic calcified plaque involving the bilateral cavernous internal carotid arteries. The flow within the paired anterior cerebral arteries is normal and symmetric. The flow within the middle cerebral arteries is normal and symmetric. The anterior communicating artery is seen. No aneurysms are seen. 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 Flow within the posterior cerebral arteries is normal and symmetric. No aneurysms are seen. NECK CT ANGIOGRAPHY: Carotid system: The great vessels demonstrate a conventional anatomy as they arise from the aortic arch. The origins of the common carotid arteries appear patent. The common carotid arteries demonstrate normal caliber and courses. The bifurcation regions are both widely patent. The internal carotid arteries demonstrate normal calibers and courses. Posterior circulation: The origins of the vertebral arteries both appear widely patent. 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 Soft tissues: Visualized neck soft tissues demonstrate no suspicious abnormalities. Bones: No suspicious bony lesions. Visualized cervical spine appears normally aligned. IMPRESSION: 1. No acute process involving the arterial tree of the head and neck. 2. 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 3. 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 4. Decreased, acute on chronic right subdural hematoma. Leftward midline shift. Any quantitative measurements of stenosis were performed using NASCET criteria. Dictated by: Bishnu Sawyer M.D. on 04/25/2022 at 19:44 Approved by: Bishnu Sawyer M.D. on 04/25/2022 at 19:48
--- NOTE | 2022-04-25 19:10 | DI.CT.S_ITS ---
PROCEDURE: CT STROKE INDICATIONS: Positive BE-FAST, Stroke symptoms TECHNIQUE: Noncontrast 4.5 mm thick angled axial sections acquired from the foramen magnum to the vertex, with coronal reformats. For radiation dose reduction, the following was used: automated exposure control, adjustment of mA and/or kV according to patient size. COMPARISON: [facility], CT, CT HEAD/BRAIN WO CON, 04/05/2022, 12:54. FINDINGS: Image quality: Excellent. CSF spaces: Basal cisterns are patent. Predominantly hypodense right subdural fluid collection is present, which is decreased in size from the prior examination, with a current maximal thickness of roughly 18 mm. . However, there is a small amount of superimposed high density material The ventricles are symmetric in size and shape. Brain: Acute on chronic right subdural hematoma. There is cerebral volume loss for age, with resultant ventricular and sulcal prominence. There are periventricular and deep white matter chronic small vessel ischemic changes. There is intracranial internal carotid artery atherosclerosis. Skull and face: Right frontal craniotomy. Sinuses: Visualized sinuses and mastoids are clear. IMPRESSION: 1. Acute on chronic right subdural hematoma. Leftward midline shift as above. 2. Findings discussed with Dr. Horton on 04/25/2022 at 19:34 hours. This study fulfills neurological imaging criteria for inclusion or exclusion of acute stroke therapies based on available published neurological guidelines. Dictated by: Bishnu Sawyer M.D. on 04/25/2022 at 19:33 Approved by: Bishnu Sawyer M.D. on 04/25/2022 at 19:36
--- NOTE | 2022-04-25 19:10 | DI.RAD.S_ITS ---
PROCEDURE: XR CHEST 1V INDICATIONS: Possible stroke TECHNIQUE: One view of the chest was acquired. COMPARISON: [facility], CR, XR CHEST 2V, 02/21/2021, 15:38. FINDINGS: Surgical changes and devices: None. Lungs and pleura: Lungs are clear. No pleural effusions or pneumothorax. Mediastinum: Mediastinal contours appear normal. Heart size is normal. Bones and chest wall: No suspicious bony lesions. Overlying soft tissues appear unremarkable. IMPRESSION: No acute process. Dictated by: Bishnu Sawyer M.D. on 04/25/2022 at 19:50 Approved by: Bishnu Sawyer M.D. on 04/25/2022 at 19:50
[2022-04-25 19:20] LABS: Add Manual Diff / Slide Review NO; Basophils Absolute Auto 0 /uL (0-100); Basophils Percent Auto 0.6 % (0-2); Eosinophils Absolute Auto 100 /uL (0-450); Eosinophils Percent Auto 1.1 % (2-4); Hemoglobin 12.2 g/dL (13.5-17.5); Lymphocytes Absolute Auto 1300 /uL (1100-4500); Lymphocytes Percent Auto 15.6 % (25-40); Mean Corpuscular HGB Conc 33.9 % (30-36); Mean Corpuscular Hemoglobin 31.3 PG (26-34); Mean Corpuscular Volume 92.5 fL (80-100); Monocytes Absolute Auto 700 /uL (0-900); Neutrophils Absolute Auto 6100 /uL (1500-7000); Neutrophils Percent Auto 74.7 % (50-75); Platelet Count 293 X10^3/uL (150-400); Red Cell Distribution Width 14.1 % (11.6-14.8); White Blood Cell Count 8.2 X10^3/uL (4.5-11.0)
[2022-04-25 19:27] LABS: PTT Partial Thromboplastin Tim 30 SECONDS (26-36)
[2022-04-25 19:36] LABS: Alanine Aminotransferase 14 IU/L (<50); Albumin 4.1 g/dL (3.5-5.0); Albumin Globulin Ratio 1.3 (1.0-2.8); Alkaline Phosphatase 75 U/L (38-126); Aspartate Aminotransferase 19 IU/L (17-59); BUN Creatinine Ratio 26.8 (6-22); Bilirubin Total 0.2 mg/dL (0.2-1.3); Blood Urea Nitrogen 26 mg/dL (9-20); Calcium 9.1 mg/dL (8.4-10.2); Carbon Dioxide 19 mmol/L (22-32); Chloride 102 mmol/L (98-107); Creatine Kinase 22 U/L (55-170); Estimated Glomerular Filt Rate > 60 mL/min (>60); Globulin 3.2 g/dL (1.7-4.1); Glucose 88 mg/dL (80-110); HEMOLYSIS < 15 (0-50); Magnesium 1.8 mg/dL (1.6-2.3); Potassium 4.4 mmol/L (3.4-5.1); Sodium 138 mmol/L (137-145); Total Protein 7.3 g/dL (6.3-8.2)
--- NOTE | 2022-04-25 19:41 | ED_ITS ---
HPI - Neuro Symptoms/Deficit General Chief Complaint: Neuro Symptoms/Deficit Stated Complaint: Stroke Time Seen by Provider: 04/25/22 19:17 History of Present Illness HPI Narrative: 82-year-old gentleman with history of diabetes, hyperlipidemia, hypertension, chronic subdural hematoma that was treated at [facility] with surgical intervention on April 05 of this year presents with acute stroke-like symptoms at 6:20 p.m. today. He was out to dinner with his family when all of a sudden he had left eye droop difficulty lifting up his pizza with his left hand, dysarthria and food dribbling out of the left side of his mouth. He was brought into the emergency department as a code stroke and taken immediately to the CT scanner. He notes that since his subdural surgery 3 weeks ago he has not had any additional falls. He has had intermittent headaches and notices some increased pressure behind his right eye for the last 2-3 days. For his headaches he has typically used Tylenol but has taken an occasional Aleve. No other nonsteroidals, aspirin or anticoagulants have been used. He notes that he is actually feeling quite well after the surgery with increased energy as well as mobility. He still is using walker for stability. He has had no recent fevers, cough, chills, chest pain, palpitations, constipation or diarrhea On Anticoagulants: No Related Data Home Medications Medication Instructions Recorded Confirmed calcium carbonate 600 mg calcium 600 mg PO DAILY 02/23/20 04/25/22 (1,500 mg) tablet (Calcium) cholecalciferol (vitamin D3) 50 50 mcg PO DAILY 02/23/20 04/25/22 mcg (2,000 unit) capsule (Vitamin D3) lisinopril 20 mg tablet 20 mg PO BID 02/23/20 04/25/22 metformin 500 mg tablet 500 mg PO BID 02/23/20 04/25/22 multivitamin 1 tab PO DAILY 02/23/20 04/25/22 saw palmetto 160 mg capsule 330 mg PO DAILY 02/23/20 04/25/22 simvastatin 40 mg tablet 40 mg PO BEDTIME 02/23/20 04/25/22 terazosin 10 mg capsule 10 mg PO QPM 02/23/20 04/25/22 vitamin B complex 1 tab PO DAILY 02/23/20 04/25/22 albuterol sulfate 90 mcg/actuation 2 puff inhalation Q4-6H PRN 07/09/20 04/25/22 aerosol inhaler (Ventolin HFA) Adequate Ventilation fluticasone propionate 44 1 puff inhalation BID 04/25/22 04/25/22 mcg/actuation HFA aerosol inhaler glipizide 5 mg tablet 5 mg PO BID 04/25/22 04/25/22 montelukast 10 mg tablet 10 mg PO DAILY 04/25/22 04/25/22 tamsulosin 0.4 mg capsule 0.4 mg PO DAILY 04/25/22 04/25/22 Previous Rx's Medication Instructions Recorded celecoxib 200 mg capsule (Celebrex) 200 mg PO DAILY #30 caps 07/09/20 Allergies Allergy/AdvReac Type Severity Reaction Status Date / Time No Known Drug Allergies Allergy Verified 04/25/22 19:49 Review of Systems Review of Systems Narrative: Remainder of complete review of systems is otherwise unremarkable except for that included in the HPI. 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 Smoking Status: Current some day smoker alcohol intake: current Smoking Status: Current some day smoker tobacco type: pipe alcohol intake frequency: 3 or more drinks per day Alcohol type: wine and hard liquor Substance Use Type: does not use Exam Initial Vital Signs Initial Vital Signs: Vital Signs Pulse Rate 79 04/25/22 15:00 Pulse Oximetry 99 04/25/22 15:00 General: Healthy appearing, in no acute distress. Able to give a complete and coherent history. Well-nourished well-developed HEENT: Moist mucous membranes, normal sclera with reactive pupils, Neck: No JVD, supple Respiratory: Lungs are clear to auscultation, no wheezing no rales no rhonchi. Full and symmetrical air movement Cardiac: Regular rate and rhythm no murmurs no bruits Abdomen: Soft, nontender, good bowel tones, no flank pain Skin: Warm and dry, no rashes Neurologic: Chronic peripheral neuropathy with chronic weakness in the right lower extremity, right lower extremity is significantly smaller than the left (shoe size is 1.5 size is smaller). Extremities: No trauma, well perfused Psych: Cooperative, appropriate insight and affect NIH score is 0 Course Orders Ordered: ED Orders 04/25/22 20:30 Urine Drug Screen, Rapid Stat Urine Microscopic Stat Al Hydrox/Mg Hydrox/Simethicone (Mag Hydrox/Alum/Simeth 30 Ml Udc) 30 ml PO Q6HR PRN PRN Reason: Dyspepsia Albuterol (Albuterol 2.5 Mg/3 Ml Neb (Adult)) 2.5 mg INH Q4H PRN PRN Reason: adequate ventilation Atorvastatin Calcium (Atorvastatin 20 Mg Tablet) 20 mg PO BEDTIME J[facility]ON Budesonide (Budesonide 0.5 Mg/2 Ml Neb) 0.5 mg INH RTBID J[facility]ON Calcium Carbonate (Calcium Carbonate 600 Mg Tablet) 600 mg PO DAILY [facility] Glipizide (Glipizide 5 Mg Tablet) 5 mg PO BID [facility] Lisinopril (Lisinopril 20 Mg Tablet) 20 mg PO BID J[facility]ON Metformin HCl (Metformin Hcl 500 Mg Tablet) 500 mg PO BID [facility] Montelukast Sodium (Montelukast 10 Mg Tablet) 10 mg PO DAILY [facility] Multivitamins (Multivitamin 1 Tablet) 1 tab PO DAILY J[facility]ON Oxycodone HCl (Oxycodone Ir 5 Mg Tablet) 5 mg PO Q4HR PRN PRN Reason: Pain, Moderate (4-6) Tamsulosin HCl (Tamsulosin 0.4 Mg Capsule) 0.4 mg PO DAILY [facility] Terazosin HCl (Terazosin 5 Mg Capsule) 10 mg PO BEDTIME JHON Last Admin: 04/26/22 00:34 Dose: 10 mg Documented By: MS Terazosin HCl (Terazosin 5 Mg Capsule) 10 mg PO QPM [facility] Vitamin D (Cholecalciferol (Vitamin D3) 1,000 Unit Tablet) 2,000 unit PO DAILY [facility] Discontinued Medications Acetaminophen (Acetaminophen 325 Mg Tablet) 975 mg PO NOW ONE Stop: 04/25/22 22:37 Last Admin: 04/25/22 22:41 Dose: 975 mg Documented By: BENI Vital Signs Vital signs: Vital Signs - 8 hr 04/25/22 21:30 04/25/22 22:00 04/25/22 22:30 Pulse Rate 72 79 82 Respiratory Rate 17 20 30 H Blood Pressure Pulse Oximetry 91 95 04/25/22 22:31 04/25/22 22:31 Pulse Rate 81 Respiratory Rate 16 Blood Pressure 142/66 H Pulse Oximetry MDM - Neuro Symptoms/Deficit Lab Data Result diagrams: 04/25/22 18:30 04/25/22 18:30 Labs: Lab Results 04/25/22 04/25/22 04/25/22 Range/Units 18:30 18:30 18:30 WBC 8.2 (4.5-11.0) X10^3/uL RBC 3.90 L (4.5-5.9) X10^6/uL Hgb 12.2 L (13.5-17.5) g/dL Hct 36.0 L (41-53) % MCV 92.5 (80-100) fL MCH 31.3 (26-34) PG MCHC 33.9 (30-36) % RDW 14.1 (11.6-14.8) % Plt Count 293 (150-400) X10^3/uL Neut % (Auto) 74.7 (50-75) % Lymph % (Auto) 15.6 L (25-40) % [place] % (Auto) 8.0 (3-14) % Eos % (Auto) 1.1 L (2-4) % Baso % (Auto) 0.6 (0-2) % Neut # (Auto) 6100 (0876-4070) /uL Lymph # (Auto) 1300 (4668-6728) /uL [place] # (Auto) 700 (0-900) /uL Eos # (Auto) 100 (0-450) /uL Baso # (Auto) 0 (0-100) /uL PT 11.0 (10.1-12.7) SECONDS INR 1.0 (0.9-1.3) APTT 30 (26-36) SECONDS Sodium 138 (137-145) mmol/L Potassium 4.4 (3.4-5.1) mmol/L Chloride 102 (98-107) mmol/L Carbon Dioxide 19 L (22-32) mmol/L BUN 26 H (9-20) mg/dL Creatinine 0.97 (0.66-1.25) mg/dL Estimated GFR > 60 (>60) mL/min BUN/Creatinine Ratio 26.8 H (6-22) Glucose 88 (80-110) mg/dL Calcium 9.1 (8.4-10.2) mg/dL Magnesium 1.8 (1.6-2.3) mg/dL Total Bilirubin 0.2 (0.2-1.3) mg/dL AST 19 (17-59) IU/L ALT 14 (<50) IU/L Alkaline Phosphatase 75 (38-126) U/L Total Creatine Kinase 22 L (55-170) U/L CK-MB (CK-2) TNP CK-MB (CK-2) Rel Index TNP Troponin I < 0.012 (0.01-0.034) ng/mL Total Protein 7.3 (6.3-8.2) g/dL Albumin 4.1 (3.5-5.0) g/dL Globulin 3.2 (1.7-4.1) g/dL Albumin/Globulin Ratio 1.3 (1.0-2.8) Urine RBC (0-5/HPF) Urine WBC (0-5/HPF) Ur Squamous Epith Cells (0-5/HPF) Urine Bacteria (None) Ur Culture Indicated? U Opiates 300ng/mL cut (Negative) Ur Oxycodone Screen (Negative) Urine Methadone Screen (Negative) Ur Barbiturates Screen (Negative) U Tricyclic Antidepress (Negative) Ur Phencyclidine Scrn (Negative) Ur Amphetamines Screen (Negative) U Methamphetamines Scrn (Negative) Ur MDMA Scrn (Ecstasy) (Negative) U Benzodiazepines Scrn (Negative) Urine Cocaine Screen (Negative) U Marijuana (THC) Screen (Negative) SARS-CoV-2 (PCR) (Negative) 04/25/22 04/25/22 04/25/22 Range/Units 19:23 20:30 20:30 WBC (4.5-11.0) X10^3/uL RBC (4.5-5.9) X10^6/uL Hgb (13.5-17.5) g/dL Hct (41-53) % MCV (80-100) fL MCH (26-34) PG MCHC (30-36) % RDW (11.6-14.8) % Plt Count (150-400) X10^3/uL Neut % (Auto) (50-75) % Lymph % (Auto) (25-40) % [place] % (Auto) (3-14) % Eos % (Auto) (2-4) % Baso % (Auto) (0-2) % Neut # (Auto) (5514-1912) /uL Lymph # (Auto) (7528-8310) /uL [place] # (Auto) (0-900) /uL Eos # (Auto) (0-450) /uL Baso # (Auto) (0-100) /uL PT (10.1-12.7) SECONDS INR (0.9-1.3) APTT (26-36) SECONDS Sodium (137-145) mmol/L Potassium (3.4-5.1) mmol/L Chloride (98-107) mmol/L Carbon Dioxide (22-32) mmol/L BUN (9-20) mg/dL Creatinine (0.66-1.25) mg/dL Estimated GFR (>60) mL/min BUN/Creatinine Ratio (6-22) Glucose (80-110) mg/dL Calcium (8.4-10.2) mg/dL Magnesium (1.6-2.3) mg/dL Total Bilirubin (0.2-1.3) mg/dL AST (17-59) IU/L ALT (<50) IU/L Alkaline Phosphatase (38-126) U/L Total Creatine Kinase (55-170) U/L CK-MB (CK-2) CK-MB (CK-2) Rel Index Troponin I (0.01-0.034) ng/mL Total Protein (6.3-8.2) g/dL Albumin (3.5-5.0) g/dL Globulin (1.7-4.1) g/dL Albumin/Globulin Ratio (1.0-2.8) Urine RBC 0-1/hpf (0-5/HPF) Urine WBC None seen (0-5/HPF) Ur Squamous Epith Cells 1-5 /hpf (0-5/HPF) Urine Bacteria Occasional (0-1) (None) Ur Culture Indicated? Cult not indicated U Opiates 300ng/mL cut Negative (Negative) Ur Oxycodone Screen Negative (Negative) Urine Methadone Screen Negative (Negative) Ur Barbiturates Screen Negative (Negative) U Tricyclic Antidepress Negative (Negative) Ur Phencyclidine Scrn Negative (Negative) Ur Amphetamines Screen Negative (Negative) U Methamphetamines Scrn Negative (Negative) Ur MDMA Scrn (Ecstasy) Negative (Negative) U Benzodiazepines Scrn Negative (Negative) Urine Cocaine Screen Negative (Negative) U Marijuana (THC) Screen Negative (Negative) SARS-CoV-2 (PCR) Negative (Negative) Point of Care Testing Glucose POC 87 Urine Dip Bedside Urine Glucose Negative Bedside Urine Bilirubin - Negative Bedside Urine Ketone - Negative Urine Specific [place] 1.015 Bedside Urine Occult Blood +/- Bedside Urine pH 5.5 Bedside Urine Protein - Negative Bedside Urine Urobilinogen - Negative Bedside Urine Nitrite - Negative Bedside Urine Leukocytes - Negative Esterase Imaging Data CT scan - chest: Radiologist's Impression: FINDINGS:? Image quality:? Excellent.? ? CSF spaces:? Basal cisterns are patent.? Predominantly hypodense right subdural fluid collection is present, which is decreased in size from the prior examination, with a current maximal thickness of roughly 18 mm. .? However, there is a small amount of superimposed high density material The ventricles are symmetric in size and shape.? ? Brain:? Acute on chronic right subdural hematoma.? There is cerebral volume loss for age, with resultant ventricular and sulcal prominence.? There are periventricular and deep white matter chronic small vessel ischemic changes.? There is intracranial internal carotid artery atherosclerosis.? ? Skull and face:? Right frontal craniotomy. ? Sinuses:? Visualized sinuses and mastoids are clear.? ? IMPRESSION:? 1. Acute on chronic right subdural hematoma.? Leftward midline shift as above. 2. Findings discussed with Dr. Horton on 04/25/2022 at 19:34 hours. ? This study fulfills neurological imaging criteria for inclusion or exclusion of acute stroke therapies based on available published neurological guidelines.? ? ? Dictated by: Bishnu Sawyer M.D. on 04/25/2022 at 19:33 ? ? Chest x-ray: Radiologist's Impression: FINDINGS:? ? Surgical changes and devices:? None.? ? Lungs and pleura:? Lungs are clear.? No pleural effusions or pneumothorax.? ? Mediastinum:? Mediastinal contours appear normal.? Heart size is normal.? ? Bones and chest wall:? No suspicious bony lesions.? Overlying soft tissues appear unremarkable.? ? IMPRESSION:? No acute process. ? ? Dictated by: Bishnu Sawyer M.D. on 04/25/2022 at 19:50 ? ? CTA: Radiologist's Impression: FINDINGS:? Image quality:? Excellent.? ? BRAIN:? CSF spaces:? Ventricles are normal in size and shape.? Basal cisterns are patent.? Decreased acute on chronic right subdural hematoma. ? Brain:? Roughly 8 mm of leftward midline shift.? Morse-white matter interface ap pears intact.? ? Skull and face:? Right frontal craniotomy.? Calvarium and facial bones appear intact, without suspicious lesions.? Orbits appear normal.? ? Sinuses:? Sinuses and mastoids are clear.? ? HEAD CT ANGIOGRAPHY:? Anterior circulation:? There is mild atherosclerotic calcified plaque involving the bilateral cavernous internal carotid arteries.? The flow within the paired anterior cerebral arteries is normal and symmetric.? The flow within the middle cerebral arteries is normal and symmetric.? The anterior communicating artery is seen.? No aneurysms are seen.? ? Posterior circulation:? 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 Flow within the posterior cerebral arteries is normal and symmetric.? No aneurysms are seen.? ? NECK CT ANGIOGRAPHY:? Carotid system:? The great vessels demonstrate a conventional anatomy as they arise from the aortic arch.? The origins of the common carotid arteries appear patent.? The common carotid arteries demonstrate normal caliber and courses.? The bifurcation regions are both widely patent.? The internal carotid arteries demonstrate normal calibers and courses.? ? Posterior circulation:? The origins of the vertebral arteries both appear widely patent.? 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 ? Soft tissues:? Visualized neck soft tissues demonstrate no suspicious abnormalities.? ? Bones:? No suspicious bony lesions.? Visualized cervical spine appears normally aligned.? IMPRESSION:? 1. No acute process involving the arterial tree of the head and neck. 2. 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 3. 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 4. Decreased, acute on chronic right subdural hematoma.? Leftward midline shift. ? Any quantitative measurements of stenosis were performed using NASCET criteria.? ? ? Dictated by: Bishnu Sawyer M.D. on 04/25/2022 at 19:44 ? ? ECG Data Interpretation: Sinus rhythm at a rate of 87 Left bundle-branch block no acute ischemic changes MDM Narrative Medical decision making narrative: 826pm [facility] transfer freep[place] [id number] DR Torrez, neurosurgeon he is reviewed the CT scan feels that this is a chronic reaccumulation and not and emergency. He did note that the patient should call clinic on Thursday to arrange for an earlier appointment. He currently has an outpatient follow-up CT scan scheduled for May 23, today's CT scan will suffice for that. Transfer center is also message in the neurosurgery clinic. Asked about the TIA type symptoms in he to agrees that the chronic subdural should not cause those acute symptoms and suggested talking to Neurology 900 transfer center will page stroke neurology. Patient is currently on blood pressure and hyperlipidemia medications. I do not see evidence of her recent echocardiogram. He will not be a candidate for any type of anticoagulation given the subdural. CTA does not suggest a large vessel occlusion. It does suggest high-grade calcific stenosis of the bilateral distal vertebral arteries. With the description acute onset of symptoms and complete resolution without any postictal. I do not think that this represents a seizure or subdural spells or transient neurologic events however that certainly is within the differential. 069 Dr Stark, stroke neuro, reviews clinical details. Despite recent surgery and subdural with his ABCD2 score at 5 and symptoms consistent with a TIA her recommendation is aspirin 325 daily, but no plavix. She did recommend overnight admission, checking a lipid panel changing from simvastatin to atorvastatin, checking hemoglobin A1c and felt that MRI would also be helpful in differentiating TIA verses actual stroke verses complications of his recent subdural verses possible seizure. Will review with the hospitalist for admission overnight. Critical Care Time Critical Care Time Critical Care Time: Yes Total Critical Care Time: 31 Attestation: Critical care time is separate from other billable procedures. There is a high probability of a significant, sudden or life-threatening deterioration that requires my full and direct attention, intervention and personal management. This critical care time includes consultation with family and other consulting doctors, review of records, and interpretation of data from labs, EKGs and imaging as well as managements of subdural hematoma with acute neurologic findings verses TIA versus stroke. Discharge Plan Departure Patient Disposition: Admitted as Observation Clinical Impression: Brain TIA, Diabetes, Chronic subdural hematoma, Hypertension, Hyperlipidemia Admit Date/Time: 04/25/22 22:44 Admit Provider: Radha Marvin
[2022-04-25 19:45] LABS: COVID19 -Nasal RAPID Negative (Negative)
[2022-04-25 19:48] LABS: Troponin I < 0.012 ng/mL (0.01-0.034)
[2022-04-25 20:44] LABS: UR Morphine/Opiate cutoff 300 Negative (Negative); Ur Creatinine Normal (Normal); Ur Specific Gravity Normal (Normal); Urine Amphetamines Negative (Negative); Urine Barbiturates Negative (Negative); Urine Benzodiazepines Negative (Negative); Urine Cocaine Negative (Negative); Urine MDMA Negative (Negative); Urine Methadone Negative (Negative); Urine Methamphetamines Negative (Negative); Urine Oxycodone Negative (Negative); Urine Phencyclidine Negative (Negative); Urine Tetrahydrocannabinol Negative (Negative); Urine Tricyclic Antidepressant Negative (Negative); Urine pH Normal (Normal)
[2022-04-25 22:31] LABS: Bacteria Urine Occasional (0-1); Culture Indicated Urine Cult Not Indicated; RBC Urine 0-1/HPF (0-5/HPF); Squamous Epithelial Cell Urine 1-5 /HPF (0-5/HPF); WBC Urine None Seen (0-5/HPF)
[2022-04-25] MEDS: ACETAMINOPHEN 325 MG TABLET 975 MG PO (22:41)
--- NOTE | 2022-04-25 23:27 | PM.HP.1 ---
History of Present Illness History of Present Illness Date Patient Seen: 04/25/22 Date of Onset of Symptoms: 04/25/22 Chief complaint: Stroke Narrative: 82-year-old gentleman with history of diabetes, hyperlipidemia, hypertension, chronic subdural hematoma that was treated at [facility] with surgical intervention on April 05 of this year presents with acute stroke-like symptoms at 6:20 p.m. today.? He was out to dinner with his family when all of a sudden he had left eye droop difficulty lifting up his pizza with his left hand, dysarthria and food dribbling out of the left side of his mouth.? He was brought into the emergency department as a code stroke and taken immediately to the CT scanner.? He notes that since his subdural surgery 3 weeks ago he has not had any additional falls.? He has had intermittent headaches and notices some increased pressure behind his right eye for the last 2-3 days.? For his headaches he has typically used Tylenol but has taken an occasional Aleve.? No other nonsteroidals, aspirin or anticoagulants have been used.? He notes that he is actually feeling quite well after the surgery with increased energy as well as mobility.? He still is using walker for stability.? He has had no recent fevers, cough, chills, chest pain, palpitations, constipation or diarrhea. After the code stroke alert in the ER, patient was evaluated by tele Neurology, also extensive discussion with Neurosurgery at [place], concluded for further evaluation of the stroke. As per the tele neurology consultation patient is not a candidate for any acute intervention at this time but recommended antiplatelet therapy and further investigation by MRI of the brain. When I saw the patient, denies any specific neurological symptoms during our discussion. Patient feels back to his baseline. No family at bedside, patient lives with a daughter. I offered to talk to patient's daughter but as it was late patient declined to give permission to call daughter at this time. Care plan was already discussed with patient's daughter by ER physician. Patient will be monitored overnight for pending MRI and neuro checks for potentially 12 hour observation. 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 Safety & Behavioral: Feels Safe in Current Yes Environment Been Physically Hurt or No Threatened By a Person Tobacco & Substance use: Tobacco type cigarettes,pipe Smoking Status Current some day smoker alcohol intake current alcohol intake frequency 3 or more drinks per day Substance Use Type does not use Meds Home Medications and Allergies Home Medications Medication Instructions Recorded Confirmed Type calcium carbonate 600 mg calcium 600 mg PO DAILY 02/23/20 04/25/22 History (1,500 mg) tablet (Calcium) cholecalciferol (vitamin D3) 50 50 mcg PO DAILY 02/23/20 04/25/22 History mcg (2,000 unit) capsule (Vitamin D3) lisinopril 20 mg tablet 20 mg PO BID 02/23/20 04/25/22 History metformin 500 mg tablet 500 mg PO BID 02/23/20 04/25/22 History multivitamin 1 tab PO DAILY 02/23/20 04/25/22 History saw palmetto 160 mg capsule 330 mg PO DAILY 02/23/20 04/25/22 History simvastatin 40 mg tablet 40 mg PO BEDTIME 02/23/20 04/25/22 History terazosin 10 mg capsule 10 mg PO QPM 02/23/20 04/25/22 History vitamin B complex 1 tab PO DAILY 02/23/20 04/25/22 History albuterol sulfate 90 mcg/actuation 2 puff inhalation Q4-6H PRN 07/09/20 04/25/22 History aerosol inhaler (Ventolin HFA) Adequate Ventilation celecoxib 200 mg capsule (Celebrex) 200 mg PO DAILY #30 caps 07/09/20 04/25/22 Rx fluticasone propionate 44 1 puff inhalation BID 04/25/22 04/25/22 History mcg/actuation HFA aerosol inhaler glipizide 5 mg tablet 5 mg PO BID 04/25/22 04/25/22 History montelukast 10 mg tablet 10 mg PO DAILY 04/25/22 04/25/22 History tamsulosin 0.4 mg capsule 0.4 mg PO DAILY 04/25/22 04/25/22 History Allergies Allergy/AdvReac Type Severity Reaction Status Date / Time No Known Drug Allergies Allergy Verified 04/25/22 19:49 Review of Systems Review of Systems Narrative: Other than neurological symptoms as mentioned above in HPI, all other systems have been reviewed. Negative. Patient does have headaches intermittent. All other systems reviewed, negative other than as mentioned above. Exam Vital Signs (past 8 hours): - 04/25/22 19:15 04/25/22 15:30 04/25/22 19:22 Temperature 98.9 F Pulse Rate 78 85 82 Respiratory Rate 16 Blood Pressure 118/56 L Pulse Oximetry 97 97 94 Oxygen Delivery Method Room Air 04/25/22 19:23 04/25/22 19:23 04/25/22 19:30 Temperature Pulse Rate 81 Respiratory Rate Blood Pressure 118/56 L 135/60 Pulse Oximetry 97 Oxygen Delivery Method 04/25/22 19:30 04/25/22 20:00 04/25/22 20:30 Temperature Pulse Rate 80 80 81 Respiratory Rate 28 H 22 16 Blood Pressure Pulse Oximetry 96 96 94 Oxygen Delivery Method 04/25/22 21:00 04/25/22 21:30 04/25/22 22:00 Temperature Pulse Rate 78 72 79 Respiratory Rate 18 17 20 Blood Pressure Pulse Oximetry 91 91 95 Oxygen Delivery Method 04/25/22 22:30 04/25/22 22:31 04/25/22 22:31 Temperature Pulse Rate 82 81 Respiratory Rate 30 H 16 Blood Pressure 142/66 H Pulse Oximetry Oxygen Delivery Method Oxygen Delivery Method Room Air Narrative Exam Narrative: Comfortably lying in the bed, not in distress, able to make a reasonable conversation, answers all questions, appropriately follow commands, no neurological deficits on my examination. Constitutional, HEENT, eyes, neck, cardiovascular, pulmonary, skin, neuro, psych exam done, negative other than as mentioned above. Objective Labs Result Diagrams: 04/25/22 18:30 04/25/22 18:30 Labs: Laboratory Results - last 24 hr 04/25/22 04/25/22 04/25/22 18:30 18:30 18:30 WBC 8.2 RBC 3.90 L Hgb 12.2 L Hct 36.0 L MCV 92.5 MCH 31.3 MCHC 33.9 RDW 14.1 Plt Count 293 Neut % (Auto) 74.7 Lymph % (Auto) 15.6 L [place] % (Auto) 8.0 Eos % (Auto) 1.1 L Baso % (Auto) 0.6 Neut # (Auto) 6100 Lymph # (Auto) 1300 [place] # (Auto) 700 Eos # (Auto) 100 Baso # (Auto) 0 PT 11.0 INR 1.0 APTT 30 Sodium 138 Potassium 4.4 Chloride 102 Carbon Dioxide 19 L BUN 26 H Creatinine 0.97 Estimated GFR > 60 BUN/Creatinine Ratio 26.8 H Glucose 88 Calcium 9.1 Magnesium 1.8 Total Bilirubin 0.2 AST 19 ALT 14 Alkaline Phosphatase 75 Total Creatine Kinase 22 L CK-MB (CK-2) TNP CK-MB (CK-2) Rel Index TNP Troponin I < 0.012 Total Protein 7.3 Albumin 4.1 Globulin 3.2 Albumin/Globulin Ratio 1.3 Urine RBC Urine WBC Ur Squamous Epith Cells Urine Bacteria Ur Culture Indicated? U Opiates 300ng/mL cut Ur Oxycodone Screen Urine Methadone Screen Ur Barbiturates Screen U Tricyclic Antidepress Ur Phencyclidine Scrn Ur Amphetamines Screen U Methamphetamines Scrn Ur MDMA Scrn (Ecstasy) U Benzodiazepines Scrn Urine Cocaine Screen U Marijuana (THC) Screen SARS-CoV-2 (PCR) 04/25/22 04/25/22 04/25/22 19:23 20:30 20:30 WBC RBC Hgb Hct MCV MCH MCHC RDW Plt Count Neut % (Auto) Lymph % (Auto) [place] % (Auto) Eos % (Auto) Baso % (Auto) Neut # (Auto) Lymph # (Auto) [place] # (Auto) Eos # (Auto) Baso # (Auto) PT INR APTT Sodium Potassium Chloride Carbon Dioxide BUN Creatinine Estimated GFR BUN/Creatinine Ratio Glucose Calcium Magnesium Total Bilirubin AST ALT Alkaline Phosphatase Total Creatine Kinase CK-MB (CK-2) CK-MB (CK-2) Rel Index Troponin I Total Protein Albumin Globulin Albumin/Globulin Ratio Urine RBC 0-1/hpf Urine WBC None seen Ur Squamous Epith Cells 1-5 /hpf Urine Bacteria Occasional (0-1) Ur Culture Indicated? Cult not indicated U Opiates 300ng/mL cut Negative Ur Oxycodone Screen Negative Urine Methadone Screen Negative Ur Barbiturates Screen Negative U Tricyclic Antidepress Negative Ur Phencyclidine Scrn Negative Ur Amphetamines Screen Negative U Methamphetamines Scrn Negative Ur MDMA Scrn (Ecstasy) Negative U Benzodiazepines Scrn Negative Urine Cocaine Screen Negative U Marijuana (THC) Screen Negative SARS-CoV-2 (PCR) Negative Assessment & Plan Assessment and plan (1) Brain TIA: Status: Acute (2) Diabetes: Status: Acute (3) Chronic subdural hematoma: Status: Acute (4) Hypertension: Status: Acute (5) Hyperlipidemia: Status: Acute Assessment & Plan narrative: Patient admitted for q.4 hours neuro checks, tele monitoring, MRI of the brain for further evaluation Patient already been evaluated by tele Neurology, recommendations as documented in the ER note Antiplatelet therapy aspirin recommended by tele Neurology, risk and benefits discussed extensively with the patient, agree with the aspirin, already given in the ER Other chronic medical conditions are stable at this time No further DVT prophylaxis other than SCDs Patient is full code Care plan extensively discussed, potential discharge in the morning based on MRI results Time Spent With Patient Critical Care time: I spent a total of [] minutes of critical care time on this patient's care today; this time is exclusive of procedural time.
--- NOTE | 2022-04-26 00:23 | DI.MRI.S_ITS ---
PROCEDURE: MR HEAD/BRAIN WO CON INDICATIONS: Stroke Evaluation - TIA presentation TECHNIQUE: Noncontrast axial T1 spin echo, axial T2 fast spin echo, sagittal and axial FLAIR, coronal T2 fast spin echo, axial gradient echo, axial diffusion and ADC through the brain. COMPARISON: [facility], CT, CT STROKE, 04/25/2022, 19:17. FINDINGS: Image quality: Excellent. CSF Spaces: Basal cisterns are patent. No extra-axial fluid collections. Ventricles are normal in size and shape. Brain: Mild atrophy and white matter chronic ischemic change present. There is a acute on chronic right-sided subdural hematoma measuring up to 1.3 cm resulting in 6 mm midline shift, stable from the prior. Smaller left-sided subdural hematoma measures 2 mm in thickness. No evidence of parenchymal bleed. Diffusion sequence unremarkable without evidence of acute infarct. Skull and face: High right parietal small craniotomy secured by round plates. Bilateral intraocular lens replacements noted. Sinuses: Sinuses and mastoids are clear. IMPRESSION: Stable acute on chronic right-sided subdural hematoma with 6 mm midline shift, stable from prior Smaller left-sided subdural hematoma 1-2 mm in thickness No acute infarct Approved by: Donald Lopez M.D. on 04/26/2022 at 7:10
[2022-04-26] MEDS: TERAZOSIN 5 MG CAPSULE 10 MG PO (00:34)
[2022-04-26 03:15] VITALS: PULSE 74
[2022-04-26 04:30] VITALS: BP 140/63; PULSE 77; RESP 18; O2SAT 92
--- NOTE | 2022-04-26 07:53 | P.PN_ITS ---
Subjective Subjective Date Patient Seen: 04/26/22 Exam Vital Signs (past 8 hours): - 04/26/22 03:15 04/26/22 04:30 Pulse Rate 74 77 Respiratory Rate 18 Blood Pressure 140/63 Pulse Oximetry 92 Oxygen Flow Rate 0 Oxygen Delivery Method Room Air Oxygen Flow Rate 0 Objective Labs Result Diagrams: 04/25/22 18:30 04/25/22 18:30 Labs: Laboratory Results - last 24 hr 04/25/22 04/25/22 04/25/22 18:30 18:30 18:30 WBC 8.2 RBC 3.90 L Hgb 12.2 L Hct 36.0 L MCV 92.5 MCH 31.3 MCHC 33.9 RDW 14.1 Plt Count 293 Neut % (Auto) 74.7 Lymph % (Auto) 15.6 L [place] % (Auto) 8.0 Eos % (Auto) 1.1 L Baso % (Auto) 0.6 Neut # (Auto) 6100 Lymph # (Auto) 1300 [place] # (Auto) 700 Eos # (Auto) 100 Baso # (Auto) 0 PT 11.0 INR 1.0 APTT 30 Sodium 138 Potassium 4.4 Chloride 102 Carbon Dioxide 19 L BUN 26 H Creatinine 0.97 Estimated GFR > 60 BUN/Creatinine Ratio 26.8 H Glucose 88 Calcium 9.1 Magnesium 1.8 Total Bilirubin 0.2 AST 19 ALT 14 Alkaline Phosphatase 75 Total Creatine Kinase 22 L CK-MB (CK-2) TNP CK-MB (CK-2) Rel Index TNP Troponin I < 0.012 Total Protein 7.3 Albumin 4.1 Globulin 3.2 Albumin/Globulin Ratio 1.3 Urine RBC Urine WBC Ur Squamous Epith Cells Urine Bacteria Ur Culture Indicated? U Opiates 300ng/mL cut Ur Oxycodone Screen Urine Methadone Screen Ur Barbiturates Screen U Tricyclic Antidepress Ur Phencyclidine Scrn Ur Amphetamines Screen U Methamphetamines Scrn Ur MDMA Scrn (Ecstasy) U Benzodiazepines Scrn Urine Cocaine Screen U Marijuana (THC) Screen SARS-CoV-2 (PCR) 04/25/22 04/25/22 04/25/22 19:23 20:30 20:30 WBC RBC Hgb Hct MCV MCH MCHC RDW Plt Count Neut % (Auto) Lymph % (Auto) [place] % (Auto) Eos % (Auto) Baso % (Auto) Neut # (Auto) Lymph # (Auto) [place] # (Auto) Eos # (Auto) Baso # (Auto) PT INR APTT Sodium Potassium Chloride Carbon Dioxide BUN Creatinine Estimated GFR BUN/Creatinine Ratio Glucose Calcium Magnesium Total Bilirubin AST ALT Alkaline Phosphatase Total Creatine Kinase CK-MB (CK-2) CK-MB (CK-2) Rel Index Troponin I Total Protein Albumin Globulin Albumin/Globulin Ratio Urine RBC 0-1/hpf Urine WBC None seen Ur Squamous Epith Cells 1-5 /hpf Urine Bacteria Occasional (0-1) Ur Culture Indicated? Cult not indicated U Opiates 300ng/mL cut Negative Ur Oxycodone Screen Negative Urine Methadone Screen Negative Ur Barbiturates Screen Negative U Tricyclic Antidepress Negative Ur Phencyclidine Scrn Negative Ur Amphetamines Screen Negative U Methamphetamines Scrn Negative Ur MDMA Scrn (Ecstasy) Negative U Benzodiazepines Scrn Negative Urine Cocaine Screen Negative U Marijuana (THC) Screen Negative SARS-CoV-2 (PCR) Negative PFSH Medical History Arthritis Cancer Cough Diabetes Enlarged prostate Facet arthropathy, lumbar Hand pain History of falling History of melanoma Hypertension Impairment of balance Lumbar radiculopathy Scoliosis due to degenerative disease of spine in adult patient Sensory peripheral neuropathy Subdural hematoma, post-traumatic Urinary frequency Surgical History History of appendectomy History of tonsillectomy Family History Father Heart disease Social History household members: family lives independently: Yes caregiver/support person: Yes (Adult daughter) occupational status: previously employed other: Lives in 1 story home with ramp from garage. Smoking Status: Current some day smoker alcohol intake: current Assessment & Plan Assessment & Plan narrative: (1) Brain TIA: ?Status:?Acute (2) Diabetes: ?Status:?Acute (3) Chronic subdural hematoma: ?Status:?Acute (4) Hypertension: ?Status:?Acute (5) Hyperlipidemia: ?Status:?Acute Assessment & Plan narrative: Patient admitted for q.4 hours neuro checks, tele monitoring, MRI of the brain for further evaluation Patient already been evaluated by tele Neurology, recommendations as documented in the ER note Antiplatelet therapy aspirin recommended by tele Neurology, risk and benefits discussed extensively with the patient, agree with the aspirin, already given in the ER Other chronic medical conditions are stable at this time No further DVT prophylaxis other than SCDs Patient is full code Time Spent With Patient Critical Care time: I spent a total of [] minutes of critical care time on this patient's care today; this time is exclusive of procedural time. Quality VTE Deep Vein Thrombosis/Pulmonary Embolism Present on Admission: No
[2022-04-26] MEDS: OXYCODONE IR 5 MG TABLET PO ×2 (08:00→13:03)
[2022-04-26 08:08] VITALS: BP 140/63; PULSE 75
[2022-04-26] MEDS: lisinopriL 20 MG TABLET PO (08:08)
[2022-04-26] MEDS: CHOLECALCIFEROL (VITAMIN D3) 1,000 UNIT TABLET 2000 UNIT PO (08:08)
[2022-04-26] MEDS: TAMSULOSIN 0.4 MG CAPSULE PO (08:08)
[2022-04-26 08:10] VITALS: BP 164/68; PULSE 70; RESP 18; TEMP 36.7; O2SAT 94
[2022-04-26] MEDS: glipiZIDE 5 MG TABLET PO (08:11)
[2022-04-26] MEDS: MULTIVITAMIN 1 TABLET 1 TAB PO (08:11)
[2022-04-26] MEDS: MONTELUKAST 10 MG TABLET PO (08:11)
[2022-04-26] MEDS: CALCIUM CARBONATE 600 MG TABLET PO (08:11)
[2022-04-26] MEDS: METFORMIN HCL 500 MG TABLET PO (08:11)
[2022-04-26] MEDS: ALBUTEROL 2.5 MG/3 ML NEB (ADULT) INH (09:01)
[2022-04-26 09:02] VITALS: PULSE 67; RESP 16; O2SAT 93
[2022-04-26] MEDS: BUDESONIDE 0.5 MG/2 ML NEB INH (09:02)
[2022-04-26 12:20] VITALS: BP 180/74; PULSE 68; RESP 18; TEMP 36.6; O2SAT 94
[2022-04-26] MEDS: MAG HYDROX/ALUM/SIMETH 30 ML UDC PO (13:08)
--- NOTE | 2022-04-26 13:14 | CM.DANOTE ---
Initial Discharge Assessment Note: Case reviewed. Met with patient, introduced self and role. Payer: [employer]age and Self Pay PCP: Sakina Rae 82 year old male admitted yesterday pm for s/s stroke. He had recent left subdural hematoma and was treated at [place] and sent home. He now has been diagnosed with newer smaller right subdural hematoma. He is alert and oriented, sitting up in chair and able to carry on conversation. Patient lives in [place] with daughter in [facility], single story home. He states he is independent and drives and his daughter helps with home management. Plan: Discharge when medically stable, DCP to follow for needs. BR[facility]LEY Discharge Planning/Care Management CM Discharge Assessment Start: 04/26/22 13:11 Freq: Status: Active Protocol: Document 04/26/22 13:12 (Rec: 04/26/22 13:14 [id number]) Discharge Planning Assessment Assigned Director Utilization Management Tess Das RN/DCP Advance Directives? Yes Advance Directives on File No History Provided By Patient,Family Member,Medical Record Prior Living Arrangements House Household Members family Comment daughter Eulalia Hart Type of transporation used prior to Drives own vehicle admit Independent with ADL's Yes Is patient alert and oriented? Yes Needs Assistance With Home Chores / Shopping Caregiver for Another No Barriers to Discharge No Discharge Plan Fdc Facility Transportation Arrangement Daughter will provide transport Additional Comment may need Home Health Review Status In Process Next Review Type Continued Stay Review
--- NOTE | 2022-04-26 13:27 | PM.DS.1 ---
History of Present Illness History of Present Illness Date Patient Seen: 04/26/22 Chief complaint: Stroke Narrative: His brain MRI showed minimal residual of the known subdural hematoma without any signs of acute stroke. His symptoms have resolved except for some minimal rightward tongue deviation which is probably related to the Chronic Subdural Hematoma. Discharge Providers Provider Date of admission: 04/25/22 22:44 Discharge Date: 04/26/22 Primary care physician: Sakina Rae PA-C Discharge provider: Aparna Alonzo MD Summary Hospital Course Hospital Course: (1) Brain TIA: (2) Diabetes: (3) Chronic subdural hematoma (4) Hypertension (5) Hyperlipidemia ? Assessment & Plan narrative: Patient admitted for q.4 hours neuro checks, tele monitoring, MRI of the brain for further evaluation Patient already been evaluated by tele Neurology, recommendations as documented in the ER note Antiplatelet therapy aspirin recommended by tele Neurology, risk and benefits discussed extensively with the patient, agree with the aspirin, already given in the ER Other chronic medical conditions are stable at this time No further DVT prophylaxis other than SCDs Patient is full code On his discharge exam today there are no lateralizing deficits. There is tongue deviation to the right side. His brain MRI shows no acute CVA. He is stable for discharge home. He will not be needing aspirin. Status at Discharge Cognitive/behavioral status at discharge: at baseline, oriented Functional status at discharge: independent ambulation Overall status at discharge: patient is back to baseline Exam Vital Signs (past 8 hours): - 04/26/22 08:08 04/26/22 08:10 04/26/22 09:02 Temperature 98.0 F Pulse Rate 75 70 67 Respiratory Rate 18 16 Blood Pressure 140/63 164/68 H Pulse Oximetry 94 93 Oxygen Delivery Method Room Air Oxygen Flow Rate 0 04/26/22 12:20 Temperature 97.9 F Pulse Rate 68 Respiratory Rate 18 Blood Pressure 180/74 H Pulse Oximetry 94 Oxygen Delivery Method Oxygen Flow Rate 0 Oxygen Delivery Method Room Air Oxygen Flow Rate 0 Narrative Exam Narrative: Alert and oriented x3 Tongue deviates to the right Large birthmark on the right anterior helm Heart is regular rate and rhythm without murmur and the lungs are clear to auscultation bilaterally Extremities have no ankle edema The press tender long goods strengths are symmetric at 3/5 and the lower extremity foot strength is symmetric at 4/5. Objective Labs Result Diagrams: 04/25/22 18:30 09/16/22 18:30 Labs: Laboratory Results - last 24 hr 04/25/22 04/25/22 04/25/22 18:30 18:30 18:30 WBC 8.2 RBC 3.90 L Hgb 12.2 L Hct 36.0 L MCV 92.5 MCH 31.3 MCHC 33.9 RDW 14.1 Plt Count 293 Neut % (Auto) 74.7 Lymph % (Auto) 15.6 L [place] % (Auto) 8.0 Eos % (Auto) 1.1 L Baso % (Auto) 0.6 Neut # (Auto) 6100 Lymph # (Auto) 1300 [place] # (Auto) 700 Eos # (Auto) 100 Baso # (Auto) 0 PT 11.0 INR 1.0 APTT 30 Sodium 138 Potassium 4.4 Chloride 102 Carbon Dioxide 19 L BUN 26 H Creatinine 0.97 Estimated GFR > 60 BUN/Creatinine Ratio 26.8 H Glucose 88 Calcium 9.1 Magnesium 1.8 Total Bilirubin 0.2 AST 19 ALT 14 Alkaline Phosphatase 75 Total Creatine Kinase 22 L CK-MB (CK-2) TNP CK-MB (CK-2) Rel Index TNP Troponin I < 0.012 Total Protein 7.3 Albumin 4.1 Globulin 3.2 Albumin/Globulin Ratio 1.3 Urine RBC Urine WBC Ur Squamous Epith Cells Urine Bacteria Ur Culture Indicated? U Opiates 300ng/mL cut Ur Oxycodone Screen Urine Methadone Screen Ur Barbiturates Screen U Tricyclic Antidepress Ur Phencyclidine Scrn Ur Amphetamines Screen U Methamphetamines Scrn Ur MDMA Scrn (Ecstasy) U Benzodiazepines Scrn Urine Cocaine Screen U Marijuana (THC) Screen SARS-CoV-2 (PCR) 04/25/22 04/25/22 04/25/22 19:23 20:30 20:30 WBC RBC Hgb Hct MCV MCH MCHC RDW Plt Count Neut % (Auto) Lymph % (Auto) [place] % (Auto) Eos % (Auto) Baso % (Auto) Neut # (Auto) Lymph # (Auto) [place] # (Auto) Eos # (Auto) Baso # (Auto) PT INR APTT Sodium Potassium Chloride Carbon Dioxide BUN Creatinine Estimated GFR BUN/Creatinine Ratio Glucose Calcium Magnesium Total Bilirubin AST ALT Alkaline Phosphatase Total Creatine Kinase CK-MB (CK-2) CK-MB (CK-2) Rel Index Troponin I Total Protein Albumin Globulin Albumin/Globulin Ratio Urine RBC 0-1/hpf Urine WBC None seen Ur Squamous Epith Cells 1-5 /hpf Urine Bacteria Occasional (0-1) Ur Culture Indicated? Cult not indicated U Opiates 300ng/mL cut Negative Ur Oxycodone Screen Negative Urine Methadone Screen Negative Ur Barbiturates Screen Negative U Tricyclic Antidepress Negative Ur Phencyclidine Scrn Negative Ur Amphetamines Screen Negative U Methamphetamines Scrn Negative Ur MDMA Scrn (Ecstasy) Negative U Benzodiazepines Scrn Negative Urine Cocaine Screen Negative U Marijuana (THC) Screen Negative SARS-CoV-2 (PCR) Negative PFSH Medical History Arthritis Cancer Cough Diabetes Enlarged prostate Facet arthropathy, lumbar Hand pain History of falling History of melanoma Hypertension Impairment of balance Lumbar radiculopathy Scoliosis due to degenerative disease of spine in adult patient Sensory peripheral neuropathy Subdural hematoma, post-traumatic Urinary frequency Surgical History History of appendectomy History of tonsillectomy Family History Father Heart disease Social History household members: family lives independently: Yes caregiver/support person: Yes (Adult daughter) occupational status: previously employed other: Lives in [address] [place] home with ramp from garage. Smoking Status: Current some day smoker alcohol intake: current Discharge Plan Discharge Plan Patient Disposition: Home Discharge orders & Medications Prescriptions: Continued metformin 500 mg Tablet 500 mg PO BID terazosin 10 mg Capsule 10 mg PO QPM multivitamin Tablet 1 tab PO DAILY lisinopril 20 mg Tablet 20 mg PO BID simvastatin 40 mg Tablet 40 mg PO BEDTIME calcium carbonate [Calcium 600] 600 mg calcium (1,500 mg) Tablet 600 mg PO DAILY saw palmetto 160 mg Capsule 330 mg PO DAILY vitamin B complex Tablet 1 tab PO DAILY cholecalciferol (vitamin D3) [Vitamin D3] 50 mcg (2,000 unit) Capsule 50 mcg PO DAILY tamsulosin 0.4 mg capsule 0.4 mg PO DAILY fluticasone propionate 44 mcg/actuation Hfa Aerosol Inhaler 1 puff INHALATION BID Rx Instructions: administer with spacer montelukast 10 mg tablet 10 mg PO DAILY glipizide 5 mg tablet 5 mg PO BID albuterol sulfate [Ventolin HFA] 90 mcg/actuation HFA aerosol inhaler 2 puff inhalation Q4-6H PRN (Reason: Adequate Ventilation) Label Comments: used a month ago celecoxib [Celebrex] 200 mg capsule 200 mg PO DAILY Qty: 30 2RF Follow up/Referrals: Sakina Rae PA-C [Primary Care Provider] - Discharge Data Primary Care Provider: Sakina Rae Attending Provider: Radha Marvin VTE Deep Vein Thrombosis/Pulmonary Embolism Present on Admission: No
== END 2022-04-26 14:34 | disposition home or self-care (01) ==
LOC: ED 22:30 → AC 22:45 → ICU 23:14
PROVIDERS: Admitting Provider Family Medicine; Emergency Provider Emergency Medicine; PCP Student in an Organized Health Care Education/Training Program; Referring Provider Emergency Medicine; Visit Provider Family Medicine
DX: G45.9 Transient cerebral ischemic attack, unspecified (principal); R47.1 Dysarthria and anarthria; I62.03 Nontraumatic chronic subdural hemorrhage; E11.9 Type 2 diabetes mellitus without complications; I10 Essential (primary) hypertension; E78.5 Hyperlipidemia, unspecified; Z79.84 Long term (current) use of oral hypoglycemic drugs; R29.700 NIHSS score 0; Z20.822 Contact with and (suspected) exposure to COVID-19
CPT/HCPCS: 36415; 70450; 70496; 70498; 70551; 71045; 80053; 80305; 81003; 81015; 82550; 82962; 83735; 84484; 85025; 85610; 85730; 87635; 93005; 94640; 99285; 99291; C9803; G0378; J7613; Q9967

== ENCOUNTER → 2022-11-17 14:03 | Outpatient (CLI) | payer OTHER, SELFPAY ==
[2022-04-25 23:42] VITALS: BMI 27.8
--- NOTE | 2022-11-17 | DI.RAD.S_ITS ---
PROCEDURE: XR LUMBAR SPINE 2-3V INDICATIONS: BACK PAIN TECHNIQUE: 3 views of the lumbar spine were acquired. COMPARISON: [facility], CR, XR LUMBAR SPINE 2-3V, 10/13/2019, 11:23. FINDINGS: Bones: 5 [id number] vertebrae are present. Mild left convexity curvature centered at L4. Moderate-severe multilevel degenerative changes with disc height loss, endplate spurring, and facet arthropathy. Appearance is similar to minimally increased since the prior exam. No vertebral body compression fractures. No suspicious bony lesions. Soft tissues: Overlying bowel gas pattern is normal. Vascular calcifications are present. IMPRESSION: Multilevel degenerative changes of the lumbar spine. If symptoms persist, follow-up radiographs and/or CT or MRI may be helpful for further evaluation. Dictated by: Alireza Spicer M.D. on 11/17/2022 at 15:46 Approved by: Alireza Spicer M.D. on 11/17/2022 at 15:52
--- NOTE | 2022-11-17 | DI.RAD.S_ITS ---
PROCEDURE: XR HIP W PEL IF DONE LT 2V INDICATIONS: HIP PAIN TECHNIQUE: AP pelvis with lateral view(s) of the left hip(s). COMPARISON: None. FINDINGS: Bones: No fractures or dislocations. Pelvic ring appears intact. No suspicious bony lesions. Mild symmetric axial hip joint space narrowing with mild periarticular osteophyte formation. 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 Soft tissues: The visualized bowel gas pattern is normal. No suspicious soft tissue calcifications. Right inguinal canal surgical clips. IMPRESSION: Mild symmetric hip joint degeneration. Dictated by: Manuel Valderrama [facility] Interpreted: Stephen Diaz MD on 11/17/2022 at 14:35 Transcribed by: PATRICK on 11/17/2022 at 14:37 Approved by: Olegario Diaz M.D. on 11/19/2022 at 16:21
== END ==
PROVIDERS: PCP Student in an Organized Health Care Education/Training Program; Referring Provider Student in an Organized Health Care Education/Training Program; Visit Provider Student in an Organized Health Care Education/Training Program
DX: M47.816 Spondylosis without myelopathy or radiculopathy, lumbar region (principal); M16.12 Unilateral primary osteoarthritis, left hip; M54.50 Low back pain, unspecified; M25.552 Pain in left hip
CPT/HCPCS: 72100; 73502

== ENCOUNTER → 2023-07-20 11:02 | Outpatient (CLI) | payer OTHER, SELFPAY ==
[2022-04-25 23:42] VITALS: BMI 27.8
--- NOTE | 2023-07-20 | DI.US.S_ITS ---
PROCEDURE: US ABD AORTA ANEURYSM SCREEN INDICATIONS: SCREENING/NICOTINE DEPENDENCE TECHNIQUE: Real time scanning was performed of the aorta and iliac arteries, with image documentation. COMPARISON: None. FINDINGS: Evaluation is markedly limited secondary to patient body habitus and bowel gas. Aorta: Proximal aortic diameter measures 2.7 cm. Mid-aorta and distal aorta are not well seen. Iliac arteries: Right common iliac artery measures 1.2 cm. Left common iliac artery measures 0.1 cm. IMPRESSION: Evaluation is markedly limited secondary to patient body habitus and bowel gas. 1. 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 Recommend sonographic follow-up in 5 years. 2. Mid and distal aorta are not well seen. Consider cross-sectional imaging for further evaluation, at clinical discretion. 3. Bilateral common iliac arteries are normal in caliber, where visualized. Vascular incidental findings followup recommendations: ACR White Paper AAA imaging followup intervals: AAA defined as 3.0 cm or more luminal diameter. * 2.5-2.9 cm (ectasia): 5 year followup. * 3.0-3.4 cm: 3 year followup. * 3.5-3.9 cm: 3 year followup. * 4.0-4.4 cm: 1 year followup. * 4.5-4.9 cm: 6 month followup. Consider surgery/endovascular Rx. * 5.0-5.5 cm: 3-6 month followup. Consider surgery/endovascular Rx. Dictated by: Gwyn Cadrenas M.D. on 07/20/2023 at 12:55 Approved by: Gwyn Cardenas M.D. on 07/20/2023 at 12:57
== END ==
LOC: US 11:02
PROVIDERS: PCP Student in an Organized Health Care Education/Training Program; Referring Provider Student in an Organized Health Care Education/Training Program; Visit Provider Student in an Organized Health Care Education/Training Program
DX: Z13.6 Encounter for screening for cardiovascular disorders (principal); I77.810 Thoracic aortic ectasia; Z87.891 Personal history of nicotine dependence
CPT/HCPCS: 76706

== ENCOUNTER → 2025-03-08 09:33 | Outpatient (CLI) | payer OTHER, SELFPAY ==
[2022-04-25 23:42] VITALS: BMI 27.8
--- NOTE | 2025-03-08 09:35 | DI.US.S_ITS ---
PROCEDURE: US EXTREMITY NONVASC LOWER LT INDICATIONS: RIGHT ANTERIOR THIGH LUMP - BULGES WITH FLEXION ?MASS TECHNIQUE: Real-time scanning was performed of the right lower extremity , with image documentation. COMPARISON: None. FINDINGS AND IMPRESSION: In the area of concern, there is a slightly hypoechoic lesion measuring 11 x 6 x 3 cm. Borders appears smooth. This appears to involve the underlying muscle. Differential includes a large lipoma versus other soft tissue abnormality. Consider MRI with a BB marker in the site of concern to further evaluate. Dictated by: Asaf Rodrigues M.D. on 03/08/2025 at 13:21 Approved by: Asaf Rodrigues M.D. on 03/08/2025 at 13:24
== END ==
LOC: US 09:34
PROVIDERS: PCP Student in an Organized Health Care Education/Training Program; Referring Provider Family Medicine; Visit Provider Family Medicine
DX: R22.41 Localized swelling, mass and lump, right lower limb (principal)
CPT/HCPCS: 76882